=== PATIENT | female | born 1960 | race Caucasian/White ===

== ENCOUNTER → 2017-10-05 07:57 | Outpatient (CLI) | payer OTHER, BC, SELFPAY ==
[2017-10-05 10:21] LABS: Absolute Lymphocyte Count 1.71 X10^3/ul (0.83-4.51); Absolute Neutrophil Count 3.4 X10^3/uL (2.0-7.7); Basophil# 0.03 X10^3/uL; Basophil% 0.5 % (0-1); Eosinophil# 0.13 X10^3/uL; Eosinophils% 2.3 % (0-5); Hematocrit 42.1 % (37-47); Hemoglobin 13.4 g/dl (12.0-15.0); Lymphocyte # 1.71 X10^3/ul (4.0); Lymphocyte % 29.9 % (19-41); Mean Corp Hgb Conc 31.8 g/gl (32-36); Mean Corpuscular Hgb 29.7 pg (27.0-32.0); Mean Corpuscular Volume 93.3 fL (81-99); Mean Platelet Vol. 9.6 fl (6.2-12.0); Monocyte# 0.48 X10^3/uL; Monocyte% 8.4 % (0-10); Neutrophil # 3.37 X10^3/uL (2.7-7.7); Neutrophil % 58.9 % (47-70); Platelet Count 351 K/mm3 (150-450); RBC Distribution Width CV 13.4 % (11.6-14.6); RBC Distribution Width SD 45.9 fl (35.1-43.9); Red Blood Count 4.51 M/mm3 (4.2-5.4); White Blood Count 5.7 K/mm3 (4.4-11.0)
[2017-10-05 10:24] LABS: POSITIVE COUNT NO; POSITIVE DIFFERENTIAL NO; POSITIVE MORPHOLOGY NO
[2017-10-05 10:50] LABS: Anion Gap 7 (5-15); BUN 15 mg/dL (7-18); Calcium,Total 9.1 mg/dL (8.5-10.1); Chloride 105 mmol/L (98-107); Creatinine, Serum 0.84 mg/dL (0.55-1.02); EST Glomerular Filtration Rate 75 mL/min (>60); Est Glom Filt Rate - Afr Amer 91 mL/min (>60); Glucose 89 mg/dL (74-106); Potassium 4.3 mmol/L (3.5-5.1); Sodium Level 140 mmol/L (136-145); T4 Free Direct 1.25 ng/dL (0.76-1.46); Thyroid Stim Hormone (TSH) 0.86 uIU/mL (0.358-3.74)
== END ==
LOC: LAB.FUTURE 08:02
PROVIDERS: Family Provider Internal Medicine; PCP Internal Medicine; Visit Provider Nurse Practitioner Family
DX: E03.9 Hypothyroidism, unspecified (principal); M81.0 Age-related osteoporosis without current pathological fracture; J01.90 Acute sinusitis, unspecified
CPT/HCPCS: 36415; 80048; 84439; 84443; 85025

== ENCOUNTER → 2018-01-19 09:25 | Outpatient (CLI) | payer OTHER, BC, SELFPAY ==
--- NOTE | 2018-01-19 09:25 | BI_ITS ---
MAMMOGRAPHY - BILATERAL SCREENING 3-D NAS SYNTHESIS REASON FOR EXAM: Female, 57 years old. Bilateral Screening 3-D tomosynthesis PERTINENT HISTORY: No significant family history. TECHNIQUE: 2-D mammograms and 3-D Nas synthesis of the breast (s) were performed. CAD was performed. COMPARISON: 2016 FINDINGS: The breast composition is heterogeneously dense that can obscure small breast masses. Scattered benign calcifications are seen. No dense spiculated masses or suspicious microcalcifications are identified. No architectural distortion is identified. There is no skin thickening or retraction. There has been no significant change since the prior study. BI/SCREENING MAMM (CAD), BILAT IMPRESSION: No mammographic signs of malignancy. Routine yearly mammograms recommended. ASSESSMENT CATEGORY: BIRADS Category 2: Benign. A letter regarding these results will be sent to the patient by the facility within 30 days. FOLLOW UP RECOMMENDATION: Yearly follow up mammogram recommended. (A) Approximately 10% of breast cancers are not detected by mammography. A normal mammogram should not delay biopsy of a clinically suspicious abnormality. Electronically Signed: Alexy Rios MD at 11:30 EDT , Service support ,
--- NOTE | 2018-01-19 09:30 | BD_ITS ---
STUDY: DUAL ENERGY X-RAY ABSORPTIOMETRY / DXA REASON FOR EXAM: Female, 57 years old. Postmenopausal screening TECHNIQUE: Bone Mineral Density (BMD) measurements of lumbar spine and bilateral hips were obtained. COMPARISON: None. FINDINGS: Lumbar Spine (L1-L4): g/cm2 (0.879) / T-score (-2.5) / Z-score (-1.7) Findings are suggestive of osteoporosis with a high fracture risk. Left Femur Total: g/cm2 (0.773) / T-score (-1.9) / Z-score (-1.2) Left Femoral Neck: g/cm2 (0.776) / T-score (-1.9) / Z-score (-0.8) Right Femur Total: g/cm2 (0.792) / T-score (-1.7) / Z-score (-1.0) Right Femoral Neck: g/cm2 (0.810) / T-score (-1.6) / Z-score (-0.6) BD/Dexa Bone Density Study IMPRESSION: The patient is considered osteoporotic as outlined below according to World [employer] Organization (WHO) criteria with a high fracture risk. Reference Information: The T-score is the number of standard deviations above or below the standard which is normal for young adults at their peak bone mineral density. The World Health Organization (WHO) interprets the T-scores as follows: Above -1 Normal bone density Between -1 and -2.5 Osteopenia Equal to / or below -2.5 Osteoporosis As a practical clinical guideline, osteopenia may be graded as follows: Mild -1 through -1.5 Moderate -1.6 through -2.0 Severe -2.1 through -2.4 The Z-score is the number of standard deviations above or below age-matched controls. A Z-score of less than -1.5 would be considered abnormal. References: 1. NIH Osteoporosis and Related Bone Diseases http://www.osteo.org 2. International Society for Clinical Densitometry http://www.iscd.org 3. National Osteoporosis Foundation http://www.nof.org Electronically Signed: Alexy Rios MD at 7:57 EDT , Service support ,
== END ==
PROVIDERS: Family Provider Internal Medicine; PCP Internal Medicine; Visit Provider Internal Medicine
DX: M81.0 Age-related osteoporosis without current pathological fracture (principal); Z12.31 Encounter for screening mammogram for malignant neoplasm of breast
CPT/HCPCS: 77063; 77067; 77080

== ENCOUNTER → 2018-06-10 07:14 | Outpatient (CLI) | payer OTHER, BC, SELFPAY ==
[2018-06-10 08:36] LABS: Cholesterol 188 mg/dL (200); High Density Lipoprotein 69 mg/dL; Triglycerides 44 mg/dL; Very Low Density Lipoprotein 9 mg/dL (5-40)
[2018-06-10 09:06] LABS: Vitamin D,25 Hydroxy 49.7 ng/mL (29.95-100.01)
--- OUTSIDE RECORDS SUMMARY | 2018-09-13 08:23 | XMS RPT_ITS ---
:1960 Author Organization OHIP Support Name Relationship Address Phone COW Unavailable [address] + [place] [address] ROSI RIVAS Unavailable [address] + [place] [address] TAMIKO SEALS Unavailable [address] + [place] [address] COW Unavailable [address] + [place] [address] ROSI RIVAS Unavailable [address] + [place] [address] TAMIKO SEALS Unavailable [address] + [place] [address] + [place] [address] ROSI RIVAS Unavailable [address] + [place] [address] TAMIKO SEALS Unavailable [address] + [place] [address] + [place] [address] ROSI RIVAS Unavailable [address] + [place] [address] TAMIKO SEALS Unavailable [address] + [place] [address] + [place] [address] ROSI RIVAS Unavailable [address] + [place] [address] TAMIKO SEALS Unavailable [address] + [place] [address] + [place] [address] ROSSDELANEY, ROSI Unavailable [address] + [place] [address] TAMIKO SEALS Unavailable [address] + [place] [address] + [place] [address] ROSSDELANEY ROSI Unavailable [address] + [place] [address] TAMIKO SEALS Unavailable [address] + [place] [address] + [place] [address] ROSSDELANEY, ROSI Unavailable [address] + [place] [address] TAMIKO SEALS Unavailable [address] + [place] [address] + [place] [address] ROSSDELANEY, ROSI Unavailable [address] + [place] [address] TAMIKO SEALS Unavailable [address] + [place] [address] + [place] [address] ROSSDELANEY ROSI Unavailable [address] [phone] [place] [address] TAIMKO SEALS Unavailable [address] + [place] [address] Care Team Providers Name Role Phone Oleghe, Efewongbe Attending Unavailable Oleghe, Efewongbe Referring Unavailable Oleghe, Efewongbe Primary Care Unavailable Oleghe, Efewongbe Attending Unavailable Oleghe, Efewongbe Referring Unavailable Bo Barton RECONCILIATION COORDINATOR-C Attending Unavailable Oleghe, Efewongbe Primary Care Unavailable Bo Barton RECONCILIATION COORDINATOR-C Referring Unavailable Oleghe, Efewongbe Consulting Unavailable Oleghe, Efewongbe Attending Unavailable Oleghe, Efewongbe Referring Unavailable Oleghe, Efewongbe Primary Care Unavailable Oleghe, Efewongbe Attending Unavailable Oleghe, Efewongbe Referring Unavailable Oleghe, Efewongbe Attending Unavailable Oleghe, Efewongbe Referring Unavailable Oleghe, Efewongbe Primary Care Unavailable Oleghe, Efewongbe Attending Unavailable Oleghe, Efewongbe Primary Care Unavailable Sharon Bean Attending Unavailable Oleghe, Efewongbe Referring Unavailable Oleghe, Efewongbe Primary Care Unavailable Tiffany Mcgregor Attending Unavailable Dylan, Haily Attending Unavailable Oleghe, Efewongbe Referring Unavailable Oleghe, Efewongbe Primary Care Unavailable PROBLEMS PROBLEMS DATE TYPE CONDITION / CODE ATTENDING STATUS SOURCE 06/12/2018 Unknown E03.9 - Oleghe, Active [place] Hypothyroidism, [facility] unspecified / Hospital E03.9(ICD-10) Repository 06/10/2018 Unknown R01.1 - Cardiac Oleghe, Active [place] murmur, unspecified [facility] / R01.1(ICD-10) Hospital Repository 06/10/2018 Unknown M81.0 - Age-related Oleghe, Active [place] osteoporosis without [facility] current pathological Hospital fracture / Repository M81.0(ICD-10) 03/01/2018 Unknown Z01.411 - Encounter Haily Richardson Active [place] for gynecological [facility] examination [facility] (general) (routine) Repository with abnormal findings / Z01.411(ICD-10) 03/01/2018 Unknown N81.2 - Incomplete [place] uterovaginal Community prolapse / Hospital N81.2(ICD-10) Repository 03/01/2018 Unknown N95.2 - DylanHaily Active [place] Postmenopausal Community atrophic vaginitis / Hospital N95.2(ICD-10) Repository 12/12/2017 Unknown Z00.00 - Encounter Oleghe, Active [place] for general adult [facility] without abnormal Repository findings / Z00.00(ICD-10) 09/13/2017 Unknown J01.90 - Acute Oleghe, Active [place] sinusitis, [facility] unspecified / Hospital J01.90(ICD-10) Repository PROCEDURES PROCEDURES No Procedure Records FoundRESULTS RESULTS STILL CLEANER TUBE OFFICE VISIT Observed: 07/10/2018 Status: F Source: [place] REPORT 2:34 PM [facility] REPOSITORY [facility] [place] [address] [place] [address] OFFICE VISIT Date of Service: 03/01/18 MR#: [id number] Acct: [id number] Name: MARLEN SEALS Rep #: [id number] : 1960 Provider: JOSE Richardson Age/Sex: 57/F Location: [facility] Status: Signed with Addenda ADDENDUM by JOSE Richardson on 07/10/18 at 1434 Addendum entered and electronically signed by JULIEN Molina 07/10/18 14:34: NO mass. Confirmed rectocele Assessment AND Plan Problems 1. Encounter for gynecological examination with abnormal finding Z01.411 2. Cystocele and rectocele with incomplete uterovaginal prolapse N81.2 plan [facility] BS combined case with Dr Galsgow for pelvic support repair 3. Post-menopausal atrophic vaginitis N95.2 Plan - JULIEN Molina Completed breast and pelvic exam Reviewed diet and exercise Pap 20 Mammogram up to date Colonoscopy up to date Bone density recent and is scheduled with PCP for discussion of management Estrace cream as directed RTO 1 year, prn with problems Haily Richardson DIRECTOR STARS Medications New: estradiol 0.01%(0.1mg/gram) (Estrace) pea sized amount VAGINAL every other day X 4 weeks t hen twice a week; 42.5 grams 2RF 07/10/18 1434 <Electronically signed by Haily VICTORIA> Date Haily Richardson cc: * Signed Intake Vital Signs03/01/18 Height 5 ft 8 in 03/01/18 Weight: 150 lb 03/01/18 Body Mass Index (BMI) 22.8 03/01/18 Blood Pressure 129/85 Intake Visit Reasons: ANNUAL Lumber Cutter Required: No Is patient in pain?: No Allergies neurotin Allergy (Severe, Uncoded 09/13/17 08:22) Hives Medications levothyroxine 112 mcg tablet 112 mcg PO QDAY #90 tab 06/08/17 [Rx Confirmed 03/01/18] calcium carbonate 600 mg calcium (1,500 mg) tablet 1,200 mg PO QDAY tab 12/12/17 [History Confirmed 03/01/18] cholecalciferol (vitamin D3) 2,000 unit capsule 2,000 unit PO QDAY 12/12/17 [History Confirmed 03/01/18] citalopram 20 mg tablet 20 mg PO DAILY #90 tab 02/17/18 [Rx Confirmed 03/01/18] estradiol 0.01% (0.1 mg/gram) vaginal cream See Label Instructions VAGINAL .COMPLEX #42.5 g 03/01/18 [Rx Confirmed 03/01/18] Is last menstrual period known: No Patient : No : No [facility] Medical History Anxiety (Chronic) Heart murmur (Chronic) Hypothyroidism (Chronic) Osteoporosis (Chronic) Seasonal allergies (Chronic) Trigeminal neuralgia (Acute) Surgical History H/O thyroidectomy (Acute) History of tubal ligation (Acute) bunion removal (Acute) Family History Mother Colon cancer Father Hypertension CVA (cerebral vascular accident) Brother Hypertension Sister Thyroid disorder Social History Smoking Status: Never smoker alcohol intake: never substance use type: does not use caffeine: Yes what type of physical activity do you participate in: walking frequency: 1-2 times per week seatbelt use: always do you feel safe at home: Yes additional social history: -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 DatName GA/WeeksOutcome Route [facility] Kristy Moore [facility] LocaProviderFOB e ht en ia tn Unknown [facility]-1 [address] [place] [address] HPI ANNUAL: Details: MARLEN SEALS is a 57 year old who presents for annual exam. No concerns Last PAP: 2016 History of abnormal PAP: no Last mammogram: 12/2017 History of abnormal mammogram: no Colon cancer screenin Female Reproductive History Questions: Metorrhagia: No, Sexually active: Yes, Dyspareunia: No, PCB: No Menopausal Symptoms: No hot flashes, No night sweats, No weight change, No mood changes, No difficulty concentrating, No sleep problems, No change in libido Menopausal Treatment: No HRT, No Vaginal Estrogen, No Osphena, No OTC treatments, No prescription non-hormonal treatment ROS Const Constitutional: Denies night sweats Cardio Card: Denies chest pain Resp Resp: Denies cough or shortness of breath with activity GI GI: Denies abdominal pain, constipation, change in stools, vomiting or bloating : Denies hot flashes Psych Psych: Denies difficulty concentrating or change in sex drive Exam Const General: cooperative, healthy appearing, no acute distress, well developed Orientation: alert, oriented to person, oriented to place HENMT Head: normal to inspection Neck Neck: normal visual inspection Thyroid: thyroid normal Lymphatic: no lymphadenopathy noted Chest Breast inspection: normal inspection of the breasts, normal inspection of the axillae Breast palpation: normal palpation of the breasts, normal palpation of the axillae, no axillary lymphadenopathy Resp Effort AND Inspection: normal respiratory effort Auscultation: clear to auscultation bilaterally Cardio Rate: regular rate Rhythm: regular rhythm GI Palpation: soft, nontender, no masses Rectal Exam: mass, deferred External Female Exam: normal external appearance Urethra: other (dilated, small caruncle) Speculum Exam - Vagina: normal vaginal discharge, atrophic vaginal mucosa Speculum Exam - Cervix: normal appearance of the cervix Bimanual Exam- Vagina AND Uterus: uterine size normal, uterine shape normal, uterus non-tender, other (vaginal wall prolapse with cervix 3cm above introitus) Bimanual Exam- Adnexa, other: normal adnexae, no adnexal masses, adnexae non-tender, cystocele, rectocele Pelvic Support: cystocele moderate, rectocele mild Neuro General: alert, oriented x3 Psych Affect: normal affect Assessment AND Plan Problems 1. Encounter for gynecological examination with abnormal finding Z01.411 2. Cystocele and rectocele with incomplete uterovaginal prolapse N81.2 plan [facility] BS combined case with Dr Glasgow for pelvic support repair 3. Post-menopausal atrophic vaginitis N95.2 Plan Completed breast and pelvic exam Reviewed diet and exercise Pap 20 Mammogram up to date Colonoscopy up to date Bone density recent and is scheduled with PCP for discussion of management Estrace cream as directed RTO 1 year, prn with problems Haily Richardson DIRECTOR STARS Medications New: estradiol 0.01%(0.1mg/gram) (Estrace) pea sized amount VAGINAL every other day X 4 weeks t hen twice a week; Coding Level of Care Code Off vis,new,prev 40-64yrs Diagnoses Encounter for gynecological examination with abnormal finding Z01.411 Gynecological examination findings: abnormal findings PRESENT Cystocele and rectocele with incomplete uterovaginal prolapse N81.2 Post-menopausal atrophic vaginitis N95.2 03/01/18 0957 <Electronically signed by Haily VICTORIA> Date Haily VICTORIA Cosigner Signature: Date (if applicable) CC: INTERNAL MEDICINE Observed: 06/14/2018 Status: F Source: [place] OFFICE VISIT 4:59 PM [facility] Internal Medicine [address] [place] [address] [place] [address] OFFICE VISIT Date of Service: 06/12/18 MR#: [id number] Acct: [id number] Name: MARLEN SEALS EVARISTO Rep #: [id number] : 1960 Provider: Ko Eden MD Age/Sex: 58/F [place] [facility] Status: Signed Intake Vital Signs06/12/18 Height 5 ft 8 in Intake Visit Reasons: 6 mo fu Chief Complaint: follow-up visit Is patient in pain?: No Allergies neurotin Allergy (Severe, Uncoded 09/13/17 08:22) Hives Medications levothyroxine 112 mcg tablet 112 mcg PO QDAY #90 tab 06/08/17 [Rx Confirmed 03/01/18] calcium carbonate 600 mg calcium (1,500 mg) tablet 1,200 mg PO QDAY tab 12/12/17 [History Confirmed 03/01/18] cholecalciferol (vitamin D3) 2,000 unit capsule 2,000 unit PO QDAY 12/12/17 [History Confirmed 03/01/18] citalopram 20 mg tablet 20 mg PO DAILY #90 tab 02/17/18 [Rx Confirmed 03/01/18] estradiol 0.01% (0.1 mg/gram) vaginal cream See Rx Instructions VAGINAL .COMPLEX #42.5 g 03/01/18 [Rx Confirmed 03/01/18] denosumab 60 mg/mL subcutaneous syringe 60 mg SC T0VAIGAV #1 ml 06/12/18 [Rx Confirmed 06/12/18] Post menopausal: Yes PFSH Medical History Anxiety (Chronic) Heart murmur (Chronic) Hypothyroidism (Chronic) Osteoporosis (Chronic) Seasonal allergies (Chronic) Trigeminal neuralgia (Acute) Surgical History H/O thyroidectomy (Acute) History of tubal ligation (Acute) bunion removal (Acute) Family History Mother Colon cancer Father Hypertension CVA (cerebral vascular accident) Brother Hypertension Sister Thyroid disorder Social History Smoking Status: Never smoker alcohol intake: never substance use type: does not use caffeine: Yes what type of physical activity do you participate in: walking frequency: 1-2 times per week seatbelt use: always do you feel safe at home: Yes additional social history: -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 She has no acute complaints at this time. During her last visit, she was started on Fosamax due to her history of osteoporosis however, she discontinued this due to generalized bone pain. She is currently on calcium and vitamin D which she reports compliance with. Last thyroid function was also within normal. She denies any concerns with palpitations, fatigue, significant weight changes or any change in her bowel habit. ROS Const Constitutional: No weight change, body ache, chills, fatigue, sleep problems, fever(s), change in appetite, snoring, weakness, frequent falls, headache(s) or excessive sweating Eyes Eyes: No change in vision, eye pain, light sensitivity or blurry vision ENT ENT: No headache(s), abnormal hearing, ear pain, tinnitus, nasal congestion, sore throat or neck pain Resp Respiratory: No snoring, cough, shortness of breath or wheezing Cardio Cardiology: No excessive sweating, chest pain at rest, chest pain with exertion, shortness of breath, dyspnea on exertion, palpitations, orthopnea or lightheadedness Gastro GI: No abdominal pain, change in bowel habits, constipation, diarrhea, vomiting, nausea/dyspepsia or cramping Genitourinary-Female: No burning urination, painful urination, urinary incontinence, urinary frequency, abnormal vaginal bleeding, pelvic pain or other Musc Musculoskeletal: No neck pain, abnormal walking, joint pain, back pain, limited range of motion, numbness or tingling Skin Skin: No redness, dry skin, itching, lesions, wounds or rash Neuro Neurology: No weakness, frequent falls, headache(s), abnormal hearing, abnormal walking, numbness, tingling, abnormal speech, dizziness or memory loss Psych Psychiatric: No change in appetite, No memory loss, No anxiety, No depression, No Thoughts of harming yourself/Others Endo Endocrine: No fatigue, excessive sweating, cold intolerance, increased thirst/drinking, heat intolerance, flushing or increased hunger Aller/Imm Allergy/Immunologic: No wheezing, itchy eyes, hives or seasonal allergy symptoms Meek/Lymp Hematologic/Lymphatic: No easy bleeding, easy bruising or enlarged lymph nodes Exam Const General: cooperative, no acute distress Orientation: alert, awake, oriented x3 HENWY Head: normal to inspection, normocephalic Ears: hearing grossly normal bilaterally Resp Effort AND Inspection: normal respiratory effort, able to speak in complete sentences Auscultation: Bilateral: Clear to Auscultation Cardio Rate: regular rate Rhythm: regular rhythm Heart Sounds: S1 normal, S2 normal GI Palpation: soft, no hepatosplenomegaly Neuro General: alert, awake, oriented x3, moves all extremities, CN's II-XI intact bilaterally Extrem General: no clubbing, cyanosis or edema Psych Appearance: grossly normal Mood: congruent mood Affect: normal affect Assessment AND Plan 1. Osteoporosis M81.0 Plan Poorly tolerant of Fosamax. Will try Prolia. Prescription sent. Continue calcium and vitamin D daily. Vitamin D level recently checked and within normal. Exercise also recommended. Repeat bone density in 2 years. 2. Hypothyroidism E03.9 Plan Stable. No concerns for over or under correction. Continue current medication. Orders Orders: 3. Depression with anxiety F41.8 Plan Also stable. Currently on Celexa 20 mg daily. Continue current management. 4. Health care maintenance Z00.00 Plan Last colonoscopy 3 years ago. Has had her colonoscopies every 5 years due to family history of colon cancer in her mother at age 50. Has received her flu shot. Mammogram in December was within normal. Currently following up with her cigarette paper tester and is scheduled to have a hysterectomy/pelvic wall repair due to bladder prolapse. This note was generated with [employer] dictation software. It may contain incorrect words, spelling, and punctuation that were not noted in checking the note before signing. Plan Detail Other Medications New: Coding Level of Care Code Off vis,est,level 4 Diagnoses Osteoporosis M81.0 Osteoporosis type: unspecified Hypothyroidism E03.9 Depression with anxiety F41.8 Health care maintenance Z00.00 06/14/18 2589 <Electronically signed by Ko Eden MD> Date Ko Eden MD Cosigner Signature: Date (if applicable) CC: LIPID PROFILE Collected: 06/10/2018 Status: F Source: [place] 7:19 AM [facility] REPOSITORY Order Comment: Comments: Fasting Comments: Fasting TYPE CODE TESTS RESULT OUT OF RANGE REFERENCE UNITS LAB L501.4900 200 mg/dL Normal CHOL 188 Result Comment: <200 mg/dL Desirable 200-240 mg/dL Borderline >240 mg/dL High Risk LAB L501.5000 mg/dL Normal TRIG 44 Result Comment: The drugs N-Acetylcysteine and Metamizole may falsely depress this assay. Serum Triglycerides Reference Interval Normal <150 mg/dL Borderline high 150 - 199 mg/dL High 200 - 499 mg/dL Very High > or = 500 mg/dL LAB L501.6400 mg/dL Normal HDL 69 Result Comment: The drugs N-Acetylcysteine and Metamizole may falsely depress this assay. Reference Range HDL <40 mg/dL Low HDL Cholesterol HDL >or= 60 mg/dL High HDL Cholesterol LAB L501.6500 0-130 mg/dL Normal LDL 110 LAB L501.6600 5-40 mg/dL Normal VLDL 9 Performed By: #### L500.4100 #### [facility] [address] [place], [address] VITAMIN D,25 HYDROXY Collected: 06/10/2018 Status: F Source: [place] 7:19 AM [facility] REPOSITORY TYPE CODE TESTS RESULT OUT OF RANGE REFERENCE UNITS LAB L506.1000 29.95-100.01 ng/mL Normal Vitamin D 49.7 25-OH Result Comment: Vitamin D 25(OH) Status Range Deficiency <20 ng/mL (50nmol/L) Insuffciency 20 - 30 ng/mL (50 - 75 nmol/L) Sufficiency 30 - 100 ng/mL (75 - 250 nmol/L) Toxicity >100 ng/mL (>250 nmol/L) Performed By: #### L506.1000 #### [facility] [address] [place], [address] STILL CLEANER TUBE OFFICE VISIT Observed: 02/12/2018 Status: F Source: [place] REPORT 3:07 AM [facility] REPOSITORY [facility] [place] [address] [place] [place] [address] OFFICE VISIT Date of Service: 02/06/18 MR#: [id number] Acct: [id number] Name: MARLEN SEALS EVARISTO Rep #: [id number] : 1960 Provider: Sharon Bean MD Age/Sex: 57/F Location: [facility] Status: Signed Intake Vital Signs02/06/18 Height 5 ft 8 in 02/06/18 Weight: 150 lb 6 oz 02/06/18 Body Mass Index (BMI) 22.8 02/06/18 Blood Pressure 124/83 Intake Visit Reasons: ? Bartholin cyst Allergies neurotin Allergy (Severe, Uncoded 09/13/17 08:22) Hives Medications levothyroxine 112 mcg tablet 112 mcg PO QDAY #90 tab 06/08/17 [Rx Confirmed 02/06/18] calcium carbonate 600 mg calcium (1,500 mg) tablet 1,200 mg PO QDAY tab 12/12/17 [History Confirmed 02/06/18] cholecalciferol (vitamin D3) 2,000 unit capsule 2,000 unit PO QDAY 12/12/17 [History Confirmed 02/06/18] escitalopram 10 mg tablet 10 mg PO QDAY 02/06/18 [History Confirmed 02/06/18] Is last menstrual period known: No Post menopausal: No Patient : No : No PFSH PFSH Medical History Anxiety (Chronic) Heart murmur (Chronic) Hypothyroidism (Chronic) Osteoporosis (Chronic) Seasonal allergies (Chronic) Trigeminal neuralgia (Acute) Surgical History H/O thyroidectomy (Acute) History of tubal ligation (Acute) bunion removal (Acute) Family History Mother Colon cancer Father Hypertension CVA (cerebral vascular accident) Brother Hypertension Sister Thyroid disorder Social History Smoking Status: Never smoker alcohol intake: never substance use type: does not use caffeine: Yes what type of physical activity do you participate in: walking frequency: 1-2 times per week seatbelt use: always do you feel safe at home: Yes additional social history: -Rupert- Works in [employer] at [employer] 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 DatName GA/WeeksOutcome Route Bt [facility] LocaProviderFOB e ht en ia tn Unknown [facility]- 995 Unknown [place]- 1997 HPI ? Bartholin cyst: Details: MARLEN SEALS is a 57 year old who presents for a vaginal lump. she states that all of a sudden this week she noticed and vaginal lump that protudes and she can feel herself sitting on it. she denies any discharge or bleeding with it. she denies any new urinary complaints. ROS Const Constitutional: Reports system reviewed and no additional complaints, except as docu : Reports as per HPI Exam Const General: cooperative, well developed, healthy appearing General: bladder normal to palpation External Female Exam: normal external appearance, gaping introitus, normal appearance of the urethra Urethra: normal appearance of the urethra Speculum Exam - Vagina: normal appearance of the vagina, normal vaginal discharge Speculum Exam - Cervix: normal appearance of the cervix Bimanual Exam- Vagina AND Uterus: normal bimanual exam, normal vaginal palpation, uterine size normal, bladder normal to palpation, uterine shape normal Bimanual Exam- Adnexa, other: normal adnexae, no adnexal masses, adnexae mobile, cystocele, vaginal apex descent, rectocele Pelvic Support: cystocele, vaginal apex descent, rectocele Assessment AND Plan Problems 1. Cystocele and rectocele with incomplete uterovaginal prolapse N81.2 plan [facility] BS combined case with Dr Glasgow for pelvic support repair Plan referral to urogyn for pelvic support surgery evaluation. see problem list note for details. Coding Level of Care Code Off vis,new,level 3 Diagnoses Cystocele and rectocele with incomplete uterovaginal prolapse N81.2 02/12/18 0307 <Electronically signed by Sharon Bean MD> Date Sharon Bean MD Cosigner Signature: Date (if applicable) CC: DEXA BONE DENSITY Observed: 01/19/2018 Status: F Source: [place] STUDY 9:27 AM [facility] REPOSITORY [facility] Imaging Services [address] [place] [address] [place] [address] Dexa Bone Density Study MR#: [id number] Acct: [id number] Name: MARLEN SEALS Rep #: [id number] : 1960 F 57 From: Maksim Rios MD PCP: Ko Eden MD Status: REG CLI Study: Dexa Bone Density Study Date of Exam: 01/19/18 Exam# [id number] Ordering Dr: Ko Eden MD STUDY: DUAL ENERGY X-RAY ABSORPTIOMETRY / DXA REASON FOR EXAM: Female, 57 years old. Postmenopausal screening TECHNIQUE: Bone Mineral Density (BMD) measurements of lumbar spine and bilateral hips were obtained. COMPARISON: None. FINDINGS: Lumbar Spine (L1-L4): g/cm2 (0.879) / T-score (-2.5) / Z-score (-1.7) Findings are suggestive of osteoporosis with a high fracture risk. Left Femur Total: g/cm2 (0.773) / T-score (-1.9) / Z- score (-1.2) Left Femoral Neck: g/cm2 (0.776) / T-score (-1.9) / Z- score (-0.8) Right Femur Total: g/cm2 (0.792) / T-score (-1.7) / Z- score (-1.0) Right Femoral Neck: g/cm2 (0.810) / T-score (-1.6) / Z-score (-0.6) BD/Dexa Bone Density Study IMPRESSION: The patient is considered osteoporotic as outlined below according to World [employer] Organization (WHO) criteria with a high fracture risk. Reference Information: The T-score is the number of standard deviations above or below the standard which is normal for young adults at their peak bone mineral density. The World Health Organization (WHO) interprets the T-scores as follows: Above -1 Normal bone density Between -1 and -2.5 Osteopenia Equal to / or below -2.5 Osteoporosis As a practical clinical guideline, osteopenia may be graded as follows: Mild -1 through -1.5 Moderate -1.6 through -2.0 Severe -2.1 through -2.4 The Z-score is the number of standard deviations above or below age-matched controls. A Z-score of less than -1.5 would be considered abnormal. References: 1. NIH Osteoporosis and Related Bone Diseases http://www.osteo.org 2. International Society for Clinical Densitometry http://www.iscd.org 3. National Osteoporosis Foundation http://www.nof.org Electronically Signed: Alexy Rios MD at 7:57 EDT , Service support , CC: Ko Eden MD Regional Manager: Signed SCREENING MAMM (CAD), Observed: 01/19/2018 Status: F Source: [place] BIL 9:25 AM [facility] REPOSITORY [facility] Imaging Services [address] [place] [address] SCREENING MAMM (CAD), BILAT MR#: [id number] Acct: [id number] Name: MARLEN SEALS EVARISTO Rep #: [id number] : 1960 F 57 From: Maksim Rios MD PCP: Ko Eden MD Status: REG CLI Study: SCREENING MAMM (CAD), BILAT Date of Exam: 01/19/18 Exam# [id number] Ordering Dr: Ko Eden MD MAMMOGRAPHY - BILATERAL SCREENING 3-D KIT SYNTHESIS REASON FOR EXAM: Female, 57 years old. Bilateral Screening 3-D tomosynthesis PERTINENT HISTORY: No significant family history. TECHNIQUE: 2-D mammograms and 3-D Kit synthesis of the breast (s) were performed. CAD was performed. COMPARISON: 2016 FINDINGS: The breast composition is heterogeneously dense that can obscure small breast masses. Scattered benign calcifications are seen. No dense spiculated masses or suspicious microcalcifications are identified. No architectural distortion is identified. There is no skin thickening or retraction. There has been no significant change since the prior study. BI/SCREENING MAMM (CAD), BILAT IMPRESSION: No mammographic signs of malignancy. Routine yearly mammograms recommended. ASSESSMENT CATEGORY: BIRADS Category 2: Benign. A letter regarding these results will be sent to the patient by the facility within 30 days. FOLLOW UP RECOMMENDATION: Yearly follow up mammogram recommended. (A) Approximately 10% of breast cancers are not detected by mammography. A normal mammogram should not delay biopsy of a clinically suspicious abnormality. Electronically Signed: Alexy Rios MD at 11:30 EDT , Service support , CC: Ko Eden MD Regional Manager: Signed INTERNAL MEDICINE Observed: 12/13/2017 Status: F Source: [place] OFFICE VISIT 9:24 AM [facility] Internal Medicine [address] [place] [address] [address] [place] [address] OFFICE VISIT Date of Service: 12/12/17 MR#: [id number] Acct: [id number] Name: MARCOMARLEN EVARISTO Rep #: [id number] : 1960 Provider: Ko Eden MD Age/Sex: 57/F Location: [facility] Status: Signed Intake Vital Signs12/12/17 Height 5 ft 8 in Intake Visit Reasons: 3 mo f/u and PAP Chief Complaint: follow-up visit Is patient in pain?: No Allergies neurotin Allergy (Severe, Uncoded 09/13/17 08:22) Hives Medications loratadine 10 mg tablet 10 mg PO QDAY PRN 06/06/17 [History Confirmed 06/06/17] levothyroxine 112 mcg tablet 112 mcg PO QDAY #90 tab 06/08/17 [Rx Confirmed 09/13/17] calcium carbonate 600 mg calcium (1,500 mg) tablet 1,200 mg PO QDAY tab 12/12/17 [History Confirmed 12/12/17] cholecalciferol (vitamin D3) 2,000 unit capsule 2,000 unit PO QDAY 12/12/17 [History Confirmed 12/12/17] citalopram 20 mg tablet 20 mg PO QDAY 12/12/17 [History Confirmed 12/12/17] Post menopausal: Yes PFSH Medical History Anxiety (Chronic) Heart murmur (Chronic) Hypothyroidism (Chronic) Osteoporosis (Chronic) Seasonal allergies (Chronic) Trigeminal neuralgia (Acute) Surgical History H/O thyroidectomy (Acute) History of tubal ligation (Acute) bunion removal (Acute) Family History Mother Colon cancer Father Hypertension CVA (cerebral vascular accident) Brother Hypertension Sister Thyroid disorder Social History Smoking Status: Never smoker alcohol intake: never substance use type: does not use what type of physical activity do you participate in: none HPI HPI Chief Complaint: follow-up visit Details: MARLEN SEALS, is a 57yo F who presents to the office today for follow up of chronic medical conditions. Has no new complaints at this time. She reports a history of Osteoporosis and at some point was on Fosamax but, it was discontinued after 3 weeks due to intolerable side effects. She is currently on Calcium and Vit D which she reports compliance with. ROS Const Constitutional: No weight change, body ache, chills, fatigue, sleep problems, fever(s), change in appetite, snoring, weakness, frequent falls, headache(s) or excessive sweating Eyes Eyes: No change in vision, eye pain, light sensitivity or blurry vision ENT ENT: No headache(s), abnormal hearing, ear pain, tinnitus, nasal congestion, sore throat or neck pain Resp Respiratory: No snoring, cough, shortness of breath or wheezing Cardio Cardiology: No excessive sweating, chest pain at rest, chest pain with exertion, shortness of breath, dyspnea on exertion, palpitations, orthopnea or lightheadedness Gastro GI: No abdominal pain, change in bowel habits, constipation, diarrhea, vomiting, nausea/dyspepsia or cramping Genitourinary-Female: No burning urination, painful urination, urinary incontinence, urinary frequency, abnormal vaginal bleeding, pelvic pain or other Musc Musculoskeletal: No neck pain, abnormal walking, joint pain, back pain, limited range of motion, numbness or tingling Skin Skin: No redness, dry skin, itching, lesions, wounds or rash Neuro Neurology: No weakness, frequent falls, headache(s), abnormal hearing, abnormal walking, numbness, tingling, abnormal speech, dizziness or memory loss Psych Psychiatric: No change in appetite, No memory loss, No anxiety, No depression, No Thoughts of harming yourself/Others Endo Endocrine: No fatigue, excessive sweating, cold intolerance, increased thirst/drinking, heat intolerance, flushing or increased hunger Aller/Imm Allergy/Immunologic: No wheezing, itchy eyes, hives or seasonal allergy symptoms Meek/Lymp Hematologic/Lymphatic: No easy bleeding, easy bruising or enlarged lymph nodes Exam Const General: cooperative, no acute distress Orientation: alert, awake, oriented x3 HENMT Head: normal to inspection, normocephalic Ears: hearing grossly normal bilaterally Resp Effort AND Inspection: normal respiratory effort, able to speak in complete sentences Auscultation: Bilateral: Clear to Auscultation Cardio Rate: regular rate Rhythm: regular rhythm Heart Sounds: S1 normal, S2 normal GI Palpation: soft, no hepatosplenomegaly Neuro General: alert, awake, oriented x3, moves all extremities, CN's II-XI intact bilaterally Extrem General: no clubbing, cyanosis or edema Psych Appearance: grossly normal Mood: congruent mood Affect: normal affect Assessment AND Plan 1. Osteoporosis M81.0 Plan Last Dexa scan was over 3 years ago and was suggestive of Osteoporosis per patient. Currently on Calcium and Vitamin D. Repeat bone density ordered. Continue calcium and vitamin D supplements. Exercise also recommended. Orders Orders: 2. Depression with anxiety F41.8 Plan Stable. Continue citalopram 20 mg daily. 3. Hypothyroidism E03.9 Plan Stable. Last thyroid function test was within normal. Continue current medication. Lipid profile ordered. Orders Orders: 4. Health care maintenance Z00.[address] Bean for pelvic examination and Pap smear. Per patient last Pap smear was several years ago. Bone density as above. Mammogram also ordered. This note was generated with [employer] dictation software. It may contain incorrect words, spelling, and punctuation that were not noted in checking the note before signing. Orders Referrals: Plan Detail Other Orders Orders: Other Medications Discontinued: amoxicillin-pot clavulanate 875-125 mg Discontinued Reason: 1 tab PO Q12H Tiffany Mcgregor Pt no longer taking Follow Up 6 Months Coding Level of Care Code Off vis,est,level 4 Diagnoses Osteoporosis M81.0 Depression with anxiety F41.8 Hypothyroidism E03.9 Health care maintenance Z00.00 12/13/17 0924 <Electronically signed by Ko Eden MD> Date Ko Eden MD Cosigner Signature: Date (if applicable) CC: CBC W/DIFF, AUTOMATED Collected: 10/05/2017 Status: F Source: [place] 8:09 AM [facility] REPOSITORY TYPE CODE TESTS RESULT OUT OF RANGE REFERENCE UNITS LAB L100.1000 4.4-11.0 K/mm3 Normal WBC 5.7 LAB L100.1200 4.2-5.4 M/mm3 Normal RBC 4.51 LAB L100.1300 12.0-15.0 g/dl Normal HGB 13.4 LAB L100.1400 37-47 % Normal HCT 42.1 LAB L100.1500 81-99 fL Normal MCV 93.3 LAB L100.1600 27.0-32.0 pg Normal MCH 29.7 LAB L100.1700 32-36 g/gl Low MCHC 31.8 LAB L100.1810 11.6-14.6 % Normal RDW CV 13.4 LAB L100.1820 35.1-43.9 fl High RDW SD 45.9 LAB L100.1900 150-450 K/mm3 Normal PLT 351 LAB L100.2000 6.2-12.0 fl Normal MPV 9.6 LAB L100.2100 47-70 % Normal NEUT% 58.9 LAB L100.2200 19-41 % Normal LY% 29.9 LAB L100.2300 0-10 % Normal MONO% 8.4 LAB L100.2400 0-5 % Normal EO% 2.3 LAB L100.2500 0-1 % Normal BASO% 0.5 LAB L100.2550 0.0-0.9 % Normal IM GRAN % 0.000 Result Comment: IG% - Immature Granulocytes (promyelocytes, myelocytes and metamyelocytes) > 1% indicates that a LEFT SHIFT is Present. LAB L100.2620 2.0-7.7 X10 3/uL Normal Absolute Neut 3.4 LAB L100.2720 0.83-4.51 X10 3/ul Normal Absolute Lymph 1.71 Performed By: #### L100.0100 #### [facility] [address] [place], [place], [id number] BASIC METABOLIC Collected: 10/05/2017 Status: F Source: [place] PROFILE (BMP) 8:09 AM [facility] REPOSITORY TYPE CODE TESTS RESULT OUT OF RANGE REFERENCE UNITS LAB L501.0100 74-106 mg/dL Normal GLU 89 Result Comment: Please note revised GLUCOSE reference range effective 2017. LAB L501.1000 7-18 mg/dL Normal BUN 15 LAB L501.1100 0.55-1.02 mg/dL Normal CREAT,SERUM 0.84 Result Comment: The validity of the calculated GFR AND GFRAA in patients over 70 years has not been determined. Clinical correlation is essential. LAB L501.1110 >60 mL/min Normal EST GFR 75 Result Comment: Non- GFR Calc LAB L501.1115 >60 mL/min Normal EST GFR - AA 91 Result Comment: GFR Calc LAB L501.1300 10-20 RATIO Normal BUN/CRE 18.0 LAB L501.2200 8.5-10.1 mg/dL CA Normal 9.1 LAB L501.5300 136-145 mmol/L NA Normal 140 LAB L501.5600 3.5-5.1 mmol/L K Normal 4.3 LAB L501.5900 98-107 mmol/L CL Normal 105 LAB L501.6100 21.0-32.0 mmol/L Normal CO2 28.0 LAB L501.6200 5-15 Normal GAP 7 Performed By: #### L500.2500, L501.9520, L506.0400 #### [facility] [address] [place], [address] THYROID STIM HORMONE Collected: 10/05/2017 Status: F Source: [place] (TSH) 8:09 AM [facility] REPOSITORY TYPE CODE TESTS RESULT OUT OF RANGE REFERENCE UNITS LAB L501.9520 0.358-3.74 uIU/mL Normal TSH 0.86 Performed By: #### L500.2500, L501.9520, L506.0400 #### [facility] [address] [place], [address] T4 FREE DIRECT Collected: 10/05/2017 Status: F Source: [place] 8:09 AM [facility] REPOSITORY TYPE CODE TESTS RESULT OUT OF RANGE REFERENCE UNITS LAB L506.0400 0.76-1.46 ng/dL Normal T4 FREE 1.25 DIRECT Performed By: #### L500.2500, L501.9520, L506.0400 #### [facility] [address] [place], [address] INTERNAL MEDICINE Observed: 09/14/2017 Status: F Source: [place] OFFICE VISIT 1:47 PM [facility] REPOSITORY [facility] [address] [place] [address] OFFICE VISIT Date of Service: 09/13/17 MR#: [id number] Acct: [id number] Name: MARLEN SEALS EVARISTO Rep #: [id number] : 1960 Provider: Ko Eden MD Age/Sex: 57/F Location: [facility] Status: Signed Intake Vital Signs09/13/17 Height 5 ft 8 in Intake Visit Reasons: 4 mo fu Chief Complaint: follow-up visit Is patient in pain?: No Allergies neurotin Allergy (Severe, Uncoded 09/13/17 08:22) Hives Medications citalopram 10 mg tablet 10 mg PO QDAY 06/06/17 [History Confirmed 09/13/17] loratadine 10 mg tablet 10 mg PO QDAY PRN 06/06/17 [History Confirmed 06/06/17] levothyroxine 112 mcg tablet 112 mcg PO QDAY #90 tab 06/08/17 [Rx Confirmed 09/13/17] amoxicillin 875 mg-potassium clavulanate 125 mg tablet 1 tab PO Q12H #20 tab 09/13/17 [Rx Confirmed 09/13/17] PFSH Medical History Anxiety (Chronic) Heart murmur (Chronic) Hypothyroidism (Chronic) Osteoporosis (Chronic) Seasonal allergies (Chronic) Trigeminal neuralgia (Acute) Surgical History H/O thyroidectomy (Acute) History of tubal ligation (Acute) bunion removal (Acute) Family History Mother Colon cancer Father Hypertension CVA (cerebral vascular accident) Brother Hypertension Sister Thyroid disorder Social History Smoking Status: Never smoker alcohol intake: never substance use type: does not use what type of physical activity do you participate in: none HPI HPI Chief Complaint: follow-up visit Details: MARLEN SEALS, is a 57yo F who presents to the office today for follow up. She also has some acute complaints. She reports nasal congestion, facial pressure, headache, chills and feeling of unwell that has been ongoing for about 10 days. Symptoms are said to have persisted and it showed no sign of improvement. She denies any prior history of chronic sinusitis. She is also concerned about a mole on the side of her face which appears to have changed in size. This was noted by her hairdresser. She denies tenderness. She has not been seen by remedy developer recently. She denies any prior history of skin cancer. She currently is on 10 mg of citalopram daily. She reports compliance and states that her depression is well controlled. She is also on levothyroxine last thyroid function check was in March. She denies any signs or symptoms suggestive of overcorrection. ROS Const Constitutional: No weight change, body ache, chills, fatigue, sleep problems, fever(s), change in appetite, snoring, weakness, frequent falls, headache(s) or excessive sweating Eyes Eyes: No change in vision, eye pain, light sensitivity or blurry vision ENT ENT: Positive for nasal congestion and sore throat; no headache(s), abnormal hearing, ear pain, tinnitus or neck pain Resp Respiratory: Positive for cough Cough: Yes non-productive; no snoring, shortness of breath or wheezing Cardio Cardiology: No excessive sweating, chest pain at rest, chest pain with exertion, shortness of breath, dyspnea on exertion, palpitations, orthopnea or lightheadedness Gastro GI: No abdominal pain, change in bowel habits, constipation, diarrhea, vomiting, nausea/dyspepsia or cramping Musc Musculoskeletal: No neck pain, abnormal walking, joint pain, back pain, limited range of motion, numbness or tingling Skin Skin: Positive for other (mole on the side of face.); no redness, dry skin, itching, lesions, wounds or rash Breast Breast: Positive for other (mole on the side of face.) Neuro Neurology: No weakness, frequent falls, headache(s), abnormal hearing, abnormal walking, numbness, tingling, abnormal speech, dizziness or memory loss Psych Psychiatric: No change in appetite, No memory loss, No anxiety, No depression, No Thoughts of harming yourself/Others Endo Endocrine: No fatigue, excessive sweating, cold intolerance, increased thirst/drinking, heat intolerance, flushing or increased hunger Aller/Imm Allergy/Immunologic: No wheezing, itchy eyes, hives or seasonal allergy symptoms Meek/Lymp Hematologic/Lymphatic: No easy bleeding, easy bruising or enlarged lymph nodes Exam Const General: cooperative, no acute distress Orientation: alert, awake, oriented x3 HENMT Head: normal to inspection, normocephalic Ears: hearing grossly normal bilaterally Resp Effort AND Inspection: normal respiratory effort, able to speak in complete sentences Auscultation: Bilateral: Clear to Auscultation Cardio Rate: regular rate Rhythm: regular rhythm Heart Sounds: S1 normal, S2 normal GI Palpation: soft, no hepatosplenomegaly Skin Other: Lesion noted on the left bahai area. irregular color and borders. Non tender. Neuro General: alert, awake, oriented x3, moves all extremities, CN's II-XI intact bilaterally Extrem General: no clubbing, cyanosis or edema Psych Appearance: grossly normal Mood: congruent mood Affect: normal affect Assessment AND Plan 1. Acute sinusitis J01.90 Plan Symptoms ongoing for about 10 days. Episode of chills and fever. Will start on Augmentin BID x 10days. Flonase and Tylenol Advised to call the office if no improvement is noted. Orders Orders: 2. Facial skin lesion L98.9 Plan ? Changing mole. Referred to Dermatology. 3. Hypothyroidism E03.9 Plan No concerning symptoms at this time. TSH and Free T4 ordered. Continue current medication. Orders Orders: 4. Depression with anxiety F41.8 Plan Stable. Currently on 10mg of Citalopram daily. Continue current medication. This note was generated with [employer] software. It may contain incorrect words, spelling, and punctuation that were not noted in checking the note before signing. Plan Detail Other Orders Orders: Other Medications New: Follow Up 3 Months (Routine Follow up) Coding Level of Care Code Off vis,est,level 4 Diagnoses Acute sinusitis J01.90 Facial skin lesion L98.9 Hypothyroidism E03.9 Depression with anxiety F41.8 09/14/17 1347 <Electronically signed by Ko Eden MD> Date Ko Eden MD Cosigner Signature: Date (if applicable) CC: ALLERGIES ALLERGIES DATE TYPE / CODE NAME / CODE REACTION SEVERITY SOURCE 09/13/2017 Miscellaneous neurotin Hives [place] Allergy/[id number]([facility]) Hospital Repository ENCOUNTERS ENCOUNTERS ADMIT/DISCHARGE ACCOUNT ADMITTING ENCOUNTER LOCATION SOURCE NUMBER CLASS 06/12/2018/ [id number] Ambulatory BMSBuilding:B [place] [address] 6 [facility] Repository 06/10/2018 [id number] Ambulatory [place] 7 [facility] ing:LAB Repository 03/01/2018/ [id number] Ambulatory BMSBuilding:B [place] 8 7 [facility] Repository 02/17/2018 [id number] Ambulatory BMSBuilding:B [place] 6 [facility] Repository 02/06/2018/ [id number] Ambulatory BMSBuilding:B [place] 8 1 [facility] Repository 01/19/2018 [id number] Ambulatory [place] 4 [facility] ing:OPBD Repository 12/12/2017/ [id number] Ambulatory BMSBuilding:B [place] 8 5 [facility] Repository 11/14/2017 [id number] Ambulatory BMSBuilding:B [place] 6 [facility] Repository 10/05/2017 [id number] Ambulatory [place] [facility] ing:LAB.FUTUR Repository E 09/13/2017/ [id number] Ambulatory BMSBuilding:B [place] 8 0 MS.[facility] Repository PAYERS PAYERS ENCOUNTER GUARANTOR PAYER SUBSCRIBER SOURCE 06/12/2018 MARLEN LOERA Primary MARLEN [id number] Insurance:CIGNAPolicy WHITMANDOB: Community PER [place]: [id number] [id number] Repository [address]Iqg: (330) Date:5661-61-30UV [phone] () [id number], [place] [address]XW: 06/12/2018 Secondary TAMIKO Claudio E[place] Insurance:ANTHEMPolic WHITMANDOB: Community y Number: [id number]-Lea General [id number] Repository Date:8328-26-66CK [address] [place] [address]AH: 06/12/2018 Tertiary NOT GIVENUNK [place] Insurance:SELF PAY [facility] Number: Effective Repository Date:2018-06-01 06/10/2018 TAMIKO Claudio Primary MARLEN Mcneil [id number] Insurance:CIGNAPolicy WHITMANDOB: [facility] PER Number: [id number], [place] [id number] Repository [address]Kkm: (330) Date:9807-63-25QL [phone] () [address]118[address]RJYTLDCKACJ, [place] [address]BL: 06/10/2018 Secondary TAMIKO Claudio [place] Insurance:ANTHEMPolic WHITMANDOB: Community y Number: [id number]-Lea General [id number] Repository Date:5781-03-12ZS [address] [place] [address]RS: 06/10/2018 Tertiary NOT GIVENUNK [place] Insurance:SELF PAY [facility] Number: Effective Repository Date:2018-06-10 03/01/2018 Tamiko Claudio Primary MARLEN Vegaman1621 Insurance:CIGNAPolicy WHITMANDOB: Community [place] Number: [id number] [place] [id number] Repository [address]Kst: (330) Date:9290-35-72UX [phone] () 7177[address]UWWUQVNTTRL, [place] [address]LO: 03/01/2018 Secondary Tamiko Claudio [place] Insurance:ANTHEMPolic WhitmanDOB: Community y Number: [id number]-Lea General [id number] Repository Date:2826-56-55FY [address] [place] [address]FX: 03/01/2018 Tertiary NOT GIVENUNK [place] Insurance:SELF PAY [facility]: Effective Repository Date:2018-03-01 02/17/2018 Tamiko Claudio Primary MARLEN Vegaman1621 Insurance:CIGNAPolicy WHITMANDOB: Community [place] Number: [id number] [place] [id number] Repository [address]Ydh: (330) Date:5977-04-85DI [phone] () [id number], [place] [address]IX: 02/17/2018 Secondary Tamiko Claudio [place] Insurance:ANTHEMPolic WhitmanDOB: Community y Number: [id number]-Lea General [id number] Repository Date:8064-38-41HD [address] [place] [address]DS: 02/17/2018 Tertiary NOT GIVENUNK [place] Insurance:SELF PAY [facility] Number: Effective Repository Date:2018-02-17 02/06/2018 Tamiko Claudio Primary MARLEN Vegaman1621 Insurance:CIGNAPolicy WHITMANDOB: Community [place] Number: [id number] [place], [place] [id number] Repository [address]Vgi: (330) Date:0882-32-13LL [phone] () [address]09[address]ZBYLEGSVPQW, [place] [address]CJ: 02/06/2018 Secondary Tamiko G [place] Insurance:ANTHEMPolic WhitmanDOB: Community y Number: [id number]-Lea General [id number] Repository Date:6288-36-01FP [address] [place] [address]EP: 02/06/2018 Tertiary NOT GIVENUNK [place] Insurance:SELF PAY [facility] Number: Effective Repository Date:2018-02-06 01/19/2018 Tamiko Claudio Primary MARLEN Seals1621 Insurance:CIGNAPolicy WHITMANDOB: Community Per Number: [id number] [place], [place] [id number] Repository [address]Ftt: (722) Date:0168-07-61OH [phone] () 310125GHWXDFVCZMY, [place] [address]EQ: 01/19/2018 Secondary Tamiko Claudio [place] Insurance:ANTHEMPolic WhitmanDOB: Community y Number: [id number]-Lea General [id number] Repository Date:2855-13-78RL [address] [place] [address]PM: 01/19/2018 Tertiary NOT GIVENUNK [place] Insurance:SELF PAY [facility] Number: Effective Repository Date:2017-12-13 12/12/2017 Tamiko Claudio Primary MARLEN Vegaman1621 Insurance:CIGNAPolicy WHITMANDOB: Community [place] Number: [id number] [place], [place] [id number] Repository [address]Ddl: (330) Date:4042-93-63VW [phone] () 418016YQHMVLWCBRW, [place] [address]RC: 12/12/2017 Secondary Tamiko Claudio [place] Insurance:ANTHEMPolic WhitmanDOB: Community y Number: [id number]-Lea General [id number] Repository Date:1046-42-71EC [address]BWTHNMA, [place] [address]GN: 12/12/2017 Tertiary NOT GIVENUNK [place] Insurance:SELF PAY [facility] Number: Effective Repository Date:2017-11-11 11/14/2017 Tamiko Claudio Primary MARLENSRIKANTH Vegaman1621 Insurance:CIGNAPolicy WHITMANDOB: Community [place] Number: [id number] [place], [place] [id number] Repository [address]Izw: (330) Date:7552-94-78VI [phone] () [address]45[address]FGYKUHPBLSB, [place] [address]VY: 11/14/2017 Secondary Tamiko Claudio [place] Insurance:ANTHEMPolic WhitmanDOB: Community y Number: [id number]-Lea General [id number] Repository Date:8036-87-56LF [address] [place] [address]PV: 11/14/2017 Tertiary NOT GIVENUNK [place] Insurance:SELF PAY [facility] Hospital Number: Effective Repository Date:2017-09-13 10/05/2017 Tamiko Claudio Primary MARLENSRIKANTH Mcneil [id number] Insurance:CIGNAPolicy WHITMANDOB: Community Per Number: [id number] [place] [id number] Repository [address]Vna: (330) Date:4634-71-11UE [phone] () [id number], [place] [address]WG: 10/05/2017 Secondary Tamiko Claudio [place] Insurance:ANTHEMPolic WhitmanDOB: Community y Number: [id number] Hospital [id number] Repository Date:2829-01-47TL [address] [place] [address]LJ: 10/05/2017 Tertiary NOT GIVENUNK [place] Insurance:SELF PAY [facility] Effective Repository Date:2017-04-08 09/13/2017 Tamiko Claudio Primary MARLEN EVARISTO Seals1621 Insurance:CIGNAPolicy WHITMANDOB: Community [place] Number: [id number] [place] [id number] Repository [address]Vyb: (330) Date:7702-84-61CH [phone] () [id number], [place] [address]RD: 09/13/2017 Secondary Tamiko Mcneil Insurance:ANTHEMPolic [facility] y Number: [id number] Hospital [id number] Repository Date:3605-16-53TF [address]MC[address]Q, [place] [address]UZ: 09/13/2017 Tertiary NOT GIVENUNK [place] Insurance:SELF PAY [facility] Number: Effective Repository Date:2017-09-13
== END ==
PROVIDERS: Family Provider Internal Medicine; PCP Internal Medicine; Referring Provider Internal Medicine; Visit Provider Internal Medicine
DX: E03.9 Hypothyroidism, unspecified (principal); R01.1 Cardiac murmur, unspecified; M81.0 Age-related osteoporosis without current pathological fracture
CPT/HCPCS: 36415; 80061; 82306

== ENCOUNTER 2018-12-14 10:44 | Observation (INO) | payer OTHER, BC, SELFPAY ==
[2018-09-13 12:35] VITALS: BMI 24.1
--- NOTE | 2018-12-11 10:48 | EKG12_ITS ---
Test Reason : PRE-OP Blood Pressure : / mmHG Vent. Rate : 058 BPM Atrial Rate : 058 BPM P-R Int : 138 ms QRS Dur : 080 ms QT Int : 416 ms P-R-T Axes : 055 017 030 degrees QTc Int : 408 ms Sinus bradycardia Otherwise normal ECG Confirmed by MIKE BUTLER, PAZ ([id number]), publications editor IMER DELGADO ([id number]) on 12/12/2018 9:33:40 AM Referred By: Sharon Bean Confirmed By:PAZ MCKEON MD
[2018-12-11 10:56] LABS: Hematocrit 39.7 % (37-47); Hemoglobin 13.2 g/dl (12.0-15.0); Mean Corp Hgb Conc 33.2 g/gl (32-36); Mean Corpuscular Hgb 30.5 pg (27.0-32.0); Mean Corpuscular Volume 91.7 fL (81-99); Mean Platelet Vol. 9.1 fl (6.2-12.0); Platelet Count 302 K/mm3 (150-450); RBC Distribution Width CV 12.6 % (11.6-14.6); RBC Distribution Width SD 41.4 fl (35.1-43.9); Red Blood Count 4.33 M/mm3 (4.2-5.4); White Blood Count 6.6 K/mm3 (4.4-11.0)
[2018-12-11 10:58] LABS: Scan Indicated on CBC? Y/N NO
[2018-12-11 11:30] LABS: Thyroid Stim Hormone (TSH) 1.58 uIU/mL (0.358-3.74)
[2018-12-14] VITALS (12 sets, daily range): BP systolic 82–117; BP diastolic 37–88; PULSE 53–80; RESP 16–18; TEMP 36.1–36.9; O2SAT 96–100; BMI 25.0
[2018-12-14] MEDS: Scopolamine 1mg/72hr Patch 1 PATCH TRANSDERM. (06:14)
[2018-12-14] MEDS: Celecoxib 200 MG Capsule 400 MG PO (06:14)
[2018-12-14] MEDS: Enoxaparin 40 MG/0.4 ML Syringe SC (06:15)
[2018-12-14] MEDS: Acetaminophen 500 MG Tablet 1000 MG PO ×4 (06:15→23:54)
[2018-12-14] MEDS: Magnesium Sulfate 4gm/100mL 4 GM/100 ML IV.SOLN. IV (06:36)
[2018-12-14] MEDS: Lactated Ringers 1,000 ML 40 ML IV (06:36)
[2018-12-14] MEDS: dexAMETHasone 10 MG/ML Vial 8 MG IV (06:37)
[2018-12-14 06:56] LABS: Bedside Glucose 84 mg/dL (70-110)
[2018-12-14] MEDS: Cefazolin 2 GM in 0.9% Normal Saline 100 ML IV (07:28)
--- NOTE | 2018-12-14 07:30 | HYST_PTH ---
PATIENT: MARLEN LARA LOC: MS3 U#:[id number] AGE/SX: 58/F ROOM: MS314 RE12/14/[address]: Dr. Sharon Bean MD : [id number] BED: 1 DIS: 12/15/2018 SPEC #: [id number] RECD: 12/14/18 15:07 STATUS: JENNIFFER REWillie #: [id number] LUIS A: 12/14/18 07:[address]: Sharon Bean DEPT: SURGICAL PATHOLOGY RECD BY: James Novak ENTERED: 12/15/18 08:05 SP TYPE: HYSTERECT OTHR DR: MD Dr. Madeline Damon MD Tissues: Uterus, NOS Procedures: Surgery Specimen Level V HEADER OPERATION: ERAS, vaginal hysterectomy, salpingectomy PRE-OP DIAGNOSIS: Cystocele midline, uterovaginal prolapse TISSUE SUBMITTED: Uterus and bilateral fallopian tubes MICROSCOPIC DIAGNOSIS Uterus and bilateral fallopian tubes, hysterectomy/bilateral salpingectomy: Cervix - chronic cervicitis. Endometrium - inactive pattern with cystic change. Myometrium - adenomyosis. 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 CE:shelia 12/18/18 MICROSCOPIC DESCRIPTION Slides are reviewed. GROSS DESCRIPTION Received in fixative is one container labeled with the patient's name and designated uterus and bilateral fallopian tubes. The specimen consists of a uterus with attached cervix and separate bilateral fallopian tubes. The uterus with attached cervix measures 7.5 x 4 x 2.8 cm and weighs 42 gm. The serosal surface of the uterus is jiménez and smooth. The attached cervix measures 3.5 cm in length x 3.2 cm in diameter. The exocervical mucosa is jiménez with some adherent clotted blood. The uterus is opened to reveal a patent endocervical canal. The triangular endometrial cavity measures 1.5 x 1 cm. The endometrial surface is jiménez and smooth. Sections through the myometrium demonstrate cut surfaces which are jiménez and homogenous. Maximal myometrial thickness is 1.4 cm. The first fallopian tube measures 3 cm in length x 0.5 cm in diameter. A fimbriated end is present. Some small paratubal cysts are noted. Cross-sectioning through the fallopian tube demonstrates a pinpoint lumen. The contralateral fallopian tube measures 3.5 cm in length x 0.5 cm in diameter. The serosal surface is jiménez-pink and smooth. A fimbriated end is present. Cross-sections demonstrate a pinpoint lumen. Quality Liaison sections are submitted as follows: 1 - anterior cervix, 2 - posterior cervix, 3-6 - anterior and posterior endomyometrium, 7 - first fallopian tube, 8 - contralateral fallopian tube. / CE:shelia 12/15/18 TC:3 CPT: 24531
[2018-12-14] MEDS: Vasopressin 20 UNITS/ML Vial (07:52)
[2018-12-14] MEDS: Lubricating Jelly 60 GM Tube 30 GM TOPICAL (08:00)
--- NOTE | 2018-12-14 09:09 | OP.PCM_ITS ---
Problem List (1) Cystocele and rectocele with incomplete uterovaginal prolapse Status: Chronic Comment: plan TVH BS combined case with Dr Glasgow for pelvic support repair (2) Depression with anxiety Status: Chronic (3) Acute sinusitis Status: Acute (4) Anxiety Status: Chronic (5) Heart murmur Status: Chronic (6) Hypothyroidism Status: Chronic (7) Osteoporosis Status: Chronic (8) Seasonal allergies Status: Chronic Report of Operation Date of Procedure: 12/14/18 Pre-Operative Diagnosis: pelvic organ prolapse Post-Operative Diagnosis: same Surgery/Procedure Performed:: TVH BS Description of Surgical Findings:: normal uterus tubes laboratory helper: Jose Tubbs laboratory helper: Madeline Glasgow Type of Anesthesia:: General Special Medications: ancef Specimen's removed: uterus tubes Drains: steiner Estimated Blood Loss (mL): 100 Fluids Replaced: crystalloid Description of Procedure: Patient was taken to the operating room and was placed under general anesthesia was prepped and draped in normal sterile fashion in the dorsal lithotomy posit ion. Preoperative antibiotics and SCDs and Steiner catheter was placed inside the bladder. Weighted speculum was placed in the vagina and the anterior and posterior lip of the cervix was grasped with 2 Elana clamps and circumferentially injected with dilute vasopressin. A circumferential incision was made with a scalpel and the posterior cul-de-sac was entered into sharply and a longneck speculum was placed. The anterior cul-de-sac was also dissected down and entered into sharply and the uterosacral ligaments were clamped cut and suture ligated bilaterally followed by the cardinal ligaments which were Clamped cut and suture ligated bilaterally with 0 Monocryl. The uterus serially descended and progressive bites were taken bilaterally up to the level of the utero-ovarian ligament bilaterally which was clamped transected and double ligated with 0 Monocryl suture and 0 Vicryl free tie. Bilateral fallopian tubes and ovaries were well visualized and noted be within normal limits and the bilateral fallopian tubes were transected across the base with a Tabby clamp and removed and sutured with 0 Vicryl suture. Excellent hemostasis was noted. Posterior peritoneum was reapproximated with 2-0 Vicryl and a modified Henriquez stitch was placed through the posterior vaginal cuff and bilateral uterosacral ligaments across the posterior cul-de-sac skimming along to provide apical support to the vagina. The vagina was closed with [id number] 0 Vicryl pop offs including the posterior and anterior peritoneum in the reapproximation. Excellent hemostasis was noted. Please see Dr. Glasgow's operative note for her portion of the procedure. Grafts/Implants Used: none - Complications none
[2018-12-14] MEDS: Estrogens,Conj. 1 Tube 1 DOSE (09:10)
[2018-12-14] MEDS: Ondansetron 4 MG/2 ML Vial IV (09:14)
[2018-12-14] MEDS: Methylene Blue 1% 100 MG/10 ML VIAL (09:30)
--- NOTE | 2018-12-14 09:53 | OP.PCM_ITS ---
Problem List (1) SHREYAS (stress urinary incontinence, female) Status: Acute (2) Cystocele with incomplete uterovaginal prolapse Status: Acute Report of Operation Date of Procedure: 12/14/18 Pre-Operative Diagnosis: Cystocele with incomplete uterovaginal prolapse, stress urinary incontinence Post-Operative Diagnosis: Same Surgery/Procedure Performed:: Anterior repair, sacrospinous ligament fixation on the right, mid urethral sling and cystoscopy Description of Surgical Findings:: Good apical support, cystocele repair without complication, alters mid urethral sling flat against the urethra without tension. Bilateral ureteral evaluation with urine output. Type of Anesthesia:: General Estimated Blood Loss (mL): 100cc Description of Procedure: The patient is a 58-year-old female who presented to the office with complaints of pelvic organ prolapse and incontinence. She was evaluated with urodynamics and informed consent was obtained for surgical intervention. Was taken to the operating room and placed on the operating room table. Anesthesia monitored the head, neck, airway, IV access and vital signs throughout the case. Once anesthesia was appropriately administered the patient was placed in dorsal lithotomy and Trendelenburg position was prepped and draped in usual sterile fashion. The case was begun by Dr. Bo Lara in a hysterectomy with closure of cuff was performed. The case was then turned over to ok. Her anterior vaginal wall was distended with lidocaine with epinephrine. A midline vertical incision approximately 2 cm in length was then made and sharp and blunt dissection ensued until the right ischial spine was palpable in the right sacral spinous ligament was freed from surrounding tissues. The length of the anterior vaginal wall was significantly short. The Capio device was used to suture the right sacrospinous ligament and the suture was brought out full-thickness to the apex of the vaginal wall. The cystocele was repaired with interrupted 2-0 Vicryl and 2 layer closure. The vaginal wall was then closed over the repair using running interlocking 2-0 Vicryl. Attention was then turned towards the mid urethra where the submucosa was once again dilated with lidocaine with epinephrine. A midline incision was made. Sharp and blunt dissection was used to open the space on either side of the urethra. The trochars were then used to pass the Altis mid urethral sling into the trans- obturator complexes bilaterally. The sling lay flat against the urethra without tension. The tensioning suture was cut and the mucosa was closed using running interlocking 2-0 Vicryl. The apex suture was tied down. A cystourethroscopy was performed revealing left ureteral jet output and on the right side the ureter was intubated with an open ended ureteral catheter. There was no blood identified within the urinary bladder or from the ureteral catheterization. The bladder and urethral mucosa were visualized in their entirety revealing no evidence of trauma or foreign body including suture or mesh. At this time the Hart catheter was replaced and the vagina was packed with Premarin cream and vaginal packing. The patient was awakened and taken to the recovery room in good condition. There were no complications during this procedure. Grafts/Implants Used: Altis midurethral sling - Complications None - Admit VTE Documentation VTE Present on Admission: Yes VTE Mechan Device Prophylaxis: SCD's VTE Pharm Prophylaxis ordered?: Yes
--- NOTE | 2018-12-14 10:02 | DCINST_ITS ---
Discharge Diet: No Restrictions Discharge Activity: May not drive while taking narcotic pain medications., May Shower, - - No lifting more than 5 pounds, no strenuous activity, no vacuuming. No exercise. Okay to walk up and down stairs. May resume sexual activity in: 8 weeks Weight Bearing Status: - Lifting Restrictions: 5 pounds Call your doctor if your incision/area has: Continuous Slow Oozing, Sudden Increased Bleeding, Foul Smelling Discharge Call your doctor if you observe: Fever of 101 or Higher, Inability to urinate, Inability to have a bowel movement, Shortness of breath, Chest pain, Calf discom fort, Uncontrolled pain Additional Instructions: Continue vaginal estrogen cream Allergies/Adverse Reactions: Allergies neurotin Allergy (Severe, Uncoded 12/07/18 10:10) Hives Medications to take at Discharge calcium carbonate 600 mg calcium (1,500 mg) tablet 1,200 mg PO QDAY tab 12/12/17 cholecalciferol (vitamin D3) 2,000 unit capsule 2,000 unit PO QDAY 12/12/17 citalopram 20 mg tablet 20 mg PO DAILY #90 tab 02/17/18 estradiol 0.01% (0.1 mg/gram) vaginal cream See Rx Instructions VAGINAL .COMPLEX #42.5 g 03/01/18 denosumab 60 mg/mL subcutaneous syringe 60 mg SC [id number] #1 ml 06/12/18 levothyroxine 112 mcg tablet 112 mcg PO QDAY #90 tab 07/14/18 Orders to be completed after discharge: 12 Lead EKG [[facility]] Time Frame: 12/07/18, Facility: [facility], Location: Cardiovascular Services Thyroid Stim Hormone (TSH) Time Frame: 12/07/18, Location: Laboratory Primary Care Physician: Ko Eden MD [Primary Care Provider] - Test Results: Test results from this visit will be discussed in further detail at your follow- up appointment, if applicable. Please Follow Up With: Madeline Glasgow MD When: 2 weeks, call for appt Proposed Discharge Date: 12/15/18
[2018-12-14] MEDS: Lactated Ringers 1,000 ML 70 ML IV (10:16)
[2018-12-14] MEDS: Ketorolac 15 MG/ML Vial 30 MG IV ×3 (10:28→23:54)
[2018-12-14] MEDS: Docusate Sodium 100 MG Capsule PO ×2 (12:47→21:51)
[2018-12-14] MEDS: Cefazolin 1 GM/50 ML BAG IV ×2 (14:23→21:51)
--- NOTE | 2018-12-14 15:17 | NURSING ---
1310- Ambulated pt. in triana. Tolerated well.
--- NOTE | 2018-12-14 23:02 | PCM.DC.VHY ---
Discharge Diet: No Restrictions Discharge Activity: May not drive while taking narcotic pain medications., May Shower, - - No lifting more than 5 pounds, no strenuous activity, no vacuuming. No exercise. Okay to walk up and down stairs. May resume sexual activity in: 8 weeks Weight Bearing Status: - Call your doctor if your incision/area has: Continuous Slow Oozing, Sudden Increased Bleeding, Foul Smelling Discharge Call your doctor if you observe: Fever of 101 or Higher, Inability to urinate, Inability to have a bowel movement, Shortness of breath, Chest pain, Calf discomfort, Uncontrolled pain Additional Instructions: Continue vaginal estrogen cream Allergies/Adverse Reactions: Allergies neurotin Allergy (Severe, Uncoded 12/07/18 10:10) Hives Medications to take at Discharge calcium carbonate 600 mg calcium (1,500 mg) tablet 1,200 mg PO QDAY tab 12/12/17 cholecalciferol (vitamin D3) 2,000 unit capsule 2,000 unit PO QDAY 12/12/17 citalopram 20 mg tablet 20 mg PO DAILY #90 tab 02/17/18 estradiol 0.01% (0.1 mg/gram) vaginal cream See Rx Instructions VAGINAL .COMPLEX #42.5 g 03/01/18 denosumab 60 mg/mL subcutaneous syringe 60 mg SC [id number] #1 ml 06/12/18 levothyroxine 112 mcg tablet 112 mcg PO QDAY #90 tab 07/14/18 Orders to be completed after discharge: 12 Lead EKG [[facility]] Time Frame: 12/07/18, Facility: [facility], Location: Cardiovascular Services Thyroid Stim Hormone (TSH) Time Frame: 12/07/18, Location: Laboratory Primary Care Physician: Ko Eden MD [Primary Care Provider] - Test Results: Test results from this visit will be discussed in further detail at your follow-up appointment, if applicable. Please Follow Up With: Madeline Glasgow MD When: 2 weeks, call for appt Proposed Discharge Date: 12/15/18
[2018-12-15] MEDS: Lactated Ringers 1,000 ML 70 ML IV (00:04)
[2018-12-15 00:06] VITALS: BP 111/72; PULSE 58; RESP 16; TEMP 36.9; O2SAT 96
[2018-12-15 06:00] VITALS: BP 110/75; PULSE 55; RESP 18; TEMP 36.8; O2SAT 98
[2018-12-15] MEDS: Ketorolac 15 MG/ML Vial 30 MG IV ×2 (06:33→11:52)
[2018-12-15] MEDS: Cefazolin 1 GM/50 ML BAG IV ×2 (06:34→14:34)
[2018-12-15] MEDS: Acetaminophen 500 MG Tablet 1000 MG PO ×2 (06:34→13:41)
[2018-12-15 07:39] VITALS: O2SAT 96
[2018-12-15 07:55] LABS: Hematocrit 36.3 % (37-47); Hemoglobin 11.8 g/dl (12.0-15.0); Mean Corp Hgb Conc 32.5 g/gl (32-36); Mean Corpuscular Hgb 30.2 pg (27.0-32.0); Mean Corpuscular Volume 92.8 fL (81-99); Mean Platelet Vol. 9.5 fl (6.2-12.0); Platelet Count 265 K/mm3 (150-450); RBC Distribution Width CV 12.9 % (11.6-14.6); RBC Distribution Width SD 43.3 fl (35.1-43.9); Red Blood Count 3.91 M/mm3 (4.2-5.4); White Blood Count 11.3 K/mm3 (4.4-11.0)
[2018-12-15 07:56] LABS: Scan Indicated on CBC? Y/N NO
[2018-12-15 08:55] VITALS: BP 115/73; PULSE 72; RESP 18; TEMP 37; O2SAT 99
[2018-12-15] MEDS: Enoxaparin 40 MG/0.4 ML Syringe SC (09:02)
[2018-12-15] MEDS: Docusate Sodium 100 MG Capsule PO (09:03)
--- NOTE | 2018-12-15 09:32 | NURSING ---
AT 0850, pt assisted to chair by this nurse assistance. This nurse offered to ambulate pt, pt wanted to sit up in chair first. Encouraged and educated importance of ambulating. Call light in reach.
--- NOTE | 2018-12-15 11:35 | NURSING ---
Pt just up to the bathroom. WIRELESS ARCHITECT assisted pt to bathroom first time since steiner was removed this morning. There was no measuring hat in toilet and this nurse was not told until after pt voided. This nurse in room and bladder scanned pt and obtained 437ml post void. PT asked if she still feels like she has to void, she stated, I probably could if I strain, but I don't want to strain.
--- NOTE | 2018-12-15 11:38 | NURSING ---
Left message on Dr. Duncan's answering machine RE: up to void and PVR of 437ml. Phone number of this nurses hospital number was left on message and to call back.
[2018-12-15] MEDS: 0.9% NaCl Peripheral Flush Adult/Peds IV ×2 (11:59→14:34)
--- NOTE | 2018-12-15 12:17 | PCM.PN.OB ---
Patient Problems: Active and Suspected Problems (Last Reviewed 06/12/18 @ 08:10 by Tiffany Mcgregor) SHREYAS (stress urinary incontinence, female) (Acute) Cystocele with incomplete uterovaginal prolapse (Acute) Subjective: doingw ell no complaints pain controlled - Physical Exam General: Alert, Oriented x3 Vital Signs Temp Pulse Resp BP Pulse Ox 98.6 F 72 18 115/73 99 12/15/18 08:55 12/15/18 08:55 12/15/18 08:55 12/15/18 08:55 12/15/18 08:55 Oxygen Flow Rate (L/min) 6 Oxygen Delivery Method Room Air Weight: 164 lb 10.965 oz Body Mass Index (BMI) 25.0 Finger Stick Blood Glucose 84 Intake and Output for Last 24 Hours 12/13/18 12/14/18 12/15/18 23:59 23:59 23:59 Intake Total 2200 / 3571 2352 / 2352 Output Total 525 / 825 1160 / 1160 Balance 1675 / 2746 1192 / 1192 Laboratory Tests Past 24 Hrs 12/15/18 07:17 WBC 11.3 H RBC 3.91 L Hgb 11.8 L Hct 36.3 L MCV 92.8 MCH 30.2 MCHC 32.5 RDW 12.9 RDW Differential 43.3 Plt Count 265 MPV 9.5 Medical Necessity - Tobacco Use Smoking Status: Never smoker Tobacco Use: Non-smoker Assessment/Plan All Active Problems (Last Reviewed 06/12/18 @ 08:10 by Tiffany Mcgregor) SHREYAS (stress urinary incontinence, female) (Acute) Cystocele with incomplete uterovaginal prolapse (Acute) Acute sinusitis (Acute) s/p TVH BS pelvic support repair pod ! routine postop care dc home today
[2018-12-15 13:39] VITALS: BP 115/76; PULSE 66; RESP 20; TEMP 36.9; O2SAT 95
--- NOTE | 2018-12-15 13:52 | NURSING ---
Pt up to void. 100cc voided along with two golf ball sized stools. This nurse bladder scanned her after she voided 100cc and obtained 800ml of PVR. This nurse made pt get up and walk. Dr. Glasgow was also informed of the above. Order to put Steiner in and send home with steiner. Make appointment for Tuesday or Tuesday next week.
--- NOTE | 2018-12-15 14:42 | NURSING ---
Hart inserted and 700ml of urine obtained immediately.
--- NOTE | 2018-12-15 15:15 | NURSING ---
Left message with Dr. Ward's nurse RE: urine retention and going home with steiner per Dr. Glasgow.
--- NOTE | 2018-12-15 17:44 | PCM.HP.STD ---
Problem List (1) Cystocele and rectocele with incomplete uterovaginal prolapse Status: Chronic Comment: plan TVH BS combined case with Dr Glasgow for pelvic support repair (2) Depression with anxiety Status: Chronic (3) Acute sinusitis Status: Acute (4) Anxiety Status: Chronic (5) Heart murmur Status: Chronic (6) Hypothyroidism Status: Chronic (7) Osteoporosis Status: Chronic (8) Seasonal allergies Status: Chronic History of Present Illness Date of Admission: 12/14/18 The patient is a 58 year old F with pelvic organ prolapse presents for hysterectomy and pelvic floor repair. Past Medical History Past Medical History (Chronic Problems): Chronic Problems (Last Reviewed 06/12/18 @ 08:10 by Tiffany Mcgregor) Cystocele and rectocele with incomplete uterovaginal prolapse (Chronic) plan TVH BS combined case with Dr Glasgow for pelvic support repair Depression with anxiety (Chronic) Anxiety (Chronic) Heart murmur (Chronic) Hypothyroidism (Chronic) Osteoporosis (Chronic) Seasonal allergies (Chronic) Medical History: Medical History (Last Reviewed 06/12/18 @ 08:10 by Tiffany Mcgregor) Anxiety (Chronic) F41.9 Heart murmur (Chronic) R01.1 Hypothyroidism (Chronic) E03.9 Osteoporosis (Chronic) M81.0 Seasonal allergies (Chronic) J30.2 Trigeminal neuralgia G50.0 Allergies neurotin Allergy (Severe, Uncoded 12/07/18 10:10) Hives Home Medications: Ambulatory Orders Medication Instructions Recorded calcium carbonate 600 mg calcium 1,200 mg PO QDAY tab 12/12/17 (1,500 mg) tablet cholecalciferol (vitamin D3) 2,000 2,000 unit PO QDAY 12/12/17 unit capsule citalopram 20 mg tablet 20 mg PO DAILY #90 tab 02/17/18 estradiol 0.01% (0.1 mg/gram) See Rx Instructions VAGINAL 03/01/18 vaginal cream .COMPLEX #42.5 g denosumab 60 mg/mL subcutaneous 60 mg SC [id number] #1 ml 06/12/18 syringe levothyroxine 112 mcg tablet 112 mcg PO QDAY #90 tab 07/14/18 Naproxen [Naprosyn] 250 - 500 mg PO Q8H PRN PRN #30 tab 12/14/18 Oxycodone HCl/Acetaminophen 1 - 2 tab PO Q4H PRN PRN 7 Days 12/14/18 [Percocet 5-325] #15 tab Surgical History: Surgical History (Last Reviewed 06/12/18 @ 08:10 by Tiffany Mcgregor) H/O thyroidectomy E89.0 History of tubal ligation Z98.51 bunion removal Smoking Status: Never smoker Tobacco Use: Non-smoker Review of Systems Constitutional: Denies: Fever, Malaise Eyes: Denies: Blurred vision, Vision Change HEENT: Denies: Head Aches, Visual Changes Cardiovascular: Denies: Chest Pain, Palpitations Respiratory: Denies: Cough, Shortness of Breath, Wheezing Gastrointestinal: Denies: Abdominal Pain, Diarrhea, Nausea, Vomiting Genitourinary: Denies: Dysuria, Hematuria Musculoskeletal: Denies: Joint Pain, Muscle pain Skin: Denies: Lesions, Rash Neurological: Denies: Blurred vision, Focal weakness, Headaches Psychiatric: Denies: Anxiety, Depression Endocrine: Denies: Heat/ Cold Intolerance Hematologic/ Lymphatic: Denies: Easy Bruising, Easy Bleeding VTE Information - Inpt Only VTE Present on Admission: No Patient Problems: Active and Suspected Problems (Last Reviewed 06/12/18 @ 08:10 by Tiffany Mcgregor) SHREYAS (stress urinary incontinence, female) (Acute) Cystocele with incomplete uterovaginal prolapse (Acute) - Physical Exam General: Alert, Oriented x3 HEENT: EOMI, Normocephalic Oral: Moist Mucosa Neck: Supple, Trachea Midline, Thyroid Normal Size and Texture Lungs: Clear to auscultation Cardiovascular: Regular rate Abdomen: Soft, Non Tender Extremities: No edema Vital Signs Temp Pulse Resp BP Pulse Ox 98.4 F 66 20 H 115/76 95 12/15/18 13:39 12/15/18 13:39 12/15/18 13:39 12/15/18 13:39 12/15/18 13:39 Oxygen Flow Rate (L/min) 6 Oxygen Delivery Method Room Air Weight: 164 lb 10.965 oz Body Mass Index (BMI) 25.0 Finger Stick Blood Glucose 84 Intake and Output for Last 24 Hours 12/13/18 12/14/18 12/15/18 23:59 23:59 23:59 Intake Total 2200 / 3571 2592 / 2592 Output Total 525 / 825 2560 / 2560 Balance 1675 / 2746 32 / 32 Laboratory Tests Past 24 Hrs 12/15/18 07:17 WBC 11.3 H RBC 3.91 L Hgb 11.8 L Hct 36.3 L MCV 92.8 MCH 30.2 MCHC 32.5 RDW 12.9 RDW Differential 43.3 Plt Count 265 MPV 9.5 Assessment/Plan All Active Problems (Last Reviewed 06/12/18 @ 08:10 by Tiffany Mcgregor) SHREYAS (stress urinary incontinence, female) (Acute) Cystocele with incomplete uterovaginal prolapse (Acute) Acute sinusitis (Acute) patient here for TVH BS cysto and SSLF and sling anterior repair combo case with ashlyn. discussed surgical risks including risks of anesthesia, infection, bleeding, injury to bowel, bladder or blood vessels, and patient wishes to proceed with surgery.
[2018-12-15 18:06] VITALS: BP 121/76; PULSE 70; RESP 18; TEMP 36.6; O2SAT 97
== END 2018-12-15 18:10 | disposition home or self-care (01) ==
LOC: SDC 12:47
PROVIDERS: Urology; Admitting Provider Obstetrics & Gynecology; Family Provider Internal Medicine; PCP Internal Medicine; Referring Provider Obstetrics & Gynecology; Visit Provider Obstetrics & Gynecology
PROC: (CPT 58260; principal; 2018-12-14 07:10)
PROC: (CPT 57260; 2018-12-14 07:10)
DX: N81.2 Incomplete uterovaginal prolapse (principal); N39.3 Stress incontinence (female) (male); E03.9 Hypothyroidism, unspecified; M81.0 Age-related osteoporosis without current pathological fracture; F41.8 Other specified anxiety disorders
CPT/HCPCS: 57240; 57288; 58262; 36415; 82962; 84443; 85027; 86850; 86900; 88307; 93005; 96365; 96366; 96372; 96375; 96376; 99218; J7120; A4216; C1758; G0378; G0379; J2405

== ENCOUNTER → 2019-01-22 | Outpatient (CLI) | payer OTHER, BC, SELFPAY ==
[2018-12-25 08:14] VITALS: BMI 25.0
--- NOTE | 2019-01-22 08:40 | BI_ITS ---
MAMMOGRAPHY - BILATERAL SCREENING REASON FOR EXAM: Female, 58 years old. Routine annual screening examination. PERTINENT HISTORY: Non-contributory. TECHNIQUE: Digital bilateral breast nas (3D mammographic acquisition) in the CC and MLO projections. 2-D mediolateral oblique (MLO) and craniocaudad (CC) views of both breasts were obtained. CAD: Full Field Digital Mammography with Computer Added Detection was performed. COMPARISON: Comparison is made with prior examination dated January 19, 2018 and June 23, 2016. FINDINGS: Breast Composition: The breasts are heterogeneously dense, which may obscure small masses. There are no dominant masses or suspicious calcifications. Stable small bilateral benign appearing axillary lymph nodes. No other significant abnormalities are identified. There has been no significant change since the prior study. BI/SCREEN MAMM (CAD) W/NAS BILAT IMPRESSION: Stable bilateral screening mammogram. Yearly follow-up mammogram recommended. (A) ASSESSMENT CATEGORY: BIRADS Category 2: Benign. A letter regarding these results will be sent to the patient by the facility within 30 days. Approximately 10% of breast cancers are not detected by mammography. A normal mammogram should not delay biopsy of a clinically suspicious abnormality. [id number] Electronically Signed: Fly Bingham, at 10:33 EDT , Service support ,
== END | disposition home or self-care (01) ==
LOC: OPBI 08:37
PROVIDERS: Family Provider Internal Medicine; PCP Internal Medicine; Referring Provider Internal Medicine; Visit Provider Internal Medicine
DX: Z00.00 Encounter for general adult medical examination without abnormal findings (principal); Z12.31 Encounter for screening mammogram for malignant neoplasm of breast
CPT/HCPCS: 77063; 77067

== ENCOUNTER 2019-04-14 08:55 | Emergency (ER) | payer OTHER, BC, SELFPAY ==
[2019-04-05 12:26] VITALS: BMI 25.0
[2019-04-14 08:56] VITALS: BP 114/72; PULSE 66; RESP 17; TEMP 36.9; O2SAT 100; BMI 24.5
--- NOTE | 2019-04-14 09:10 | RAD_ITS ---
STUDY: X-RAY - BILATERAL WRISTS REASON FOR EXAM: Female, 58 years old. Old. Pain over both navicularis. TECHNIQUE - RIGHT WRIST: 4 view(s) of the right wrist were obtained. TECHNIQUE - LEFT WRIST: 4 view(s) of the left wrist were obtained. COMPARISON: None. FINDINGS - RIGHT WRIST: Normal visualized distal radius and ulna. Normal radiocarpal articulation. Normal distal radioulnar articulation. Normal carpal bones. Normal carpal articulations. Normal carpometacarpal articulation of the thumb. Normal second through fifth carpometacarpal articulations. Normal visualized metacarpal bones. The soft tissue structures are unremarkable. FINDINGS - LEFT WRIST: Normal visualized distal radius and ulna. Normal radiocarpal articulation. Normal distal radioulnar articulation. Suspicious hairline fracture in the left navicular bone. Normal remaining carpals. Normal carpal articulations. Normal carpometacarpal articulation of the thumb. Normal second through fifth carpometacarpal articulations. Normal visualized metacarpal bones. The soft tissue structures are unremarkable. RAD/Wrist min 3 Views IMPRESSION: Right Wrist: No suspicious acute fracture or dislocation of the right wrist. Left Wrist: Suspicious hairline fracture of the left navicular bone. Electronically Signed: Lauro Lisa MD at 9:57 EDT , Service support ,
--- NOTE | 2019-04-14 09:16 | ED.VIS.GEN ---
History of Present Illness Chief Complaint: Upper Extremity Injury Informant: Patient Onset: Yesterday Context: Sudden Onset Timing: Continuous Current Severity: Moderate Maximum Severity: Moderate Narrative: The patient is a svsly-oftl-vugemnzw female that presents to the emergency department after mechanical fall. Patient was at work last night. She states that she slipped on a close bladder changer. She fell onto her buttocks and caught herself with outstretched hands behind her. Since then, she had pain in both wrists. She did not strike her head. She denies loss of consciousness. She denies any other systemic symptoms. She is otherwise been in her normal state of health. Prior similar symptoms: No Recent Illness/Hospitalization: No Past Medical History - Allergies and Home Meds Allergies/Adverse Reactions: Allergies gabapentin [From Neurontin] Allergy (Severe, Verified 04/14/19 08:56) Hives Primary Care Physician: Ko Eden MD [Primary Care Provider] - Prior records reviewed: Yes Past Medical History: None Surgical History: no surgical history Smoking Status: Never smoker Review of Systems General: Denies: Chills, Fever, Sweats Eyes: Denies: Visual changes - bilaterally, Diplopia ENT: Denies: Rhinorrhea, Sore throat Cardiovascular: Denies: Chest pain, Palpitations Respiratory: Denies: Dyspnea, Cough, Dyspnea on exertion Gastrointestinal: Denies: Abdominal pain, Nausea, Vomiting, Diarrhea, Melena, Hematochezia Genitourinary: Denies: Dysuria, Hematuria, Frequency Musculoskeletal: Denies: Back pain, Extremity Pain Skin: Denies: Rash, Wounds Neurological: Denies: Headache, Weakness, Numbness Physical Exam Vital Signs/Narrative: Vital Signs Temp Pulse Resp BP Pulse Ox 04/14/19 08:56 98.5 F 66 17 114/72 100 Inital Vital Signs reviewed: Yes General: Well nourished, Well developed, No Acute Distress Head: Normocephalic, Atraumatic Eyes: Perrl, EOMI ENT: Moist mucous membranes, No rhinorrhea Neck: Supple, Nontender Cardiovascular: Regular rate, Regular rhythm, No murmurs Respiratory: No distress, CTA bilaterally, Chest nontender Abdomen: Soft, Nontender, Nondistended, Normal bowel sounds Back: Nontender, Normal Inspection Extremities: No edema, Tenderness - Mild tenderness on the dorsum of both wrists. 2+ pulses. Slight contusion. Neurovascularly intact distally. No pain in the hand, forearm, or elbows. Skin: Normal color, No rash Neurological: Alert, Oriented x3, Cranial nerves II-XII grossly intact, Normal Strength, Normal Sensation Psychological: Normal affect, Normal Mood Diagnostic/Tx/Re-eval Clinical Impression(s) from Imaging Studies Wrist X-Ray 04/14/19 09:10 IMPRESSION: Right Wrist: No suspicious acute fracture or dislocation of the right wrist. Left Wrist: Suspicious hairline fracture of the left navicular bone. Electronically Signed: Lauro Lisa MD at 9:57 EDT , Service support , - Medical Decision Making The patient was placed in an Ortho-Glass thumb spica on the left. She was placed in a Velcro wrist splint on the right. X-rays did show a questionable navicular fracture. With this, the patient will be given outpatient orthopedic referral. She will be discharged home. Impression 1. Right wrist sprain 2. Closed left navicular fracture ED Disposition - Plan for ED Patient: Instructions: NAVICULAR FRACTURE, Wrist (Confirmed) Referrals: Carlos Suarez DO [STAFF PHYSICIAN] -
== END 2019-04-14 10:30 | disposition home or self-care (01) ==
LOC: ED 09:36
PROVIDERS: Emergency Provider Emergency Medicine; Family Provider Internal Medicine; PCP Internal Medicine
DX: S62.002A Unspecified fracture of navicular [scaphoid] bone of left wrist, initial encounter for closed fracture (principal); S63.501A Unspecified sprain of right wrist, initial encounter; W01.0XXA Fall on same level from slipping, tripping and stumbling without subsequent striking against object, initial encounter; Y93.9 Activity, unspecified; Y92.9 Unspecified place or not applicable
CPT/HCPCS: 29125; 73110; 99283

== ENCOUNTER → 2019-07-06 09:30 | Outpatient (CLI) | payer OTHER, BC, SELFPAY ==
[2019-07-06 09:04] VITALS: BMI 24.5
[2019-07-06 12:24] LABS: Hematocrit 44.7 % (37-47); Hemoglobin 14.6 g/dL (12.0-15.0); Mean Corp Hgb Conc 32.7 g/dL (32-36); Mean Corpuscular Hgb 30.8 pg (27.0-32.0); Mean Corpuscular Volume 94.3 fL (81-99); Mean Platelet Vol. 9.5 fl (6.2-12.0); Platelet Count 399 K/mm3 (150-450); RBC Distribution Width CV 12.6 % (11.6-14.6); RBC Distribution Width SD 43.4 fl (35.1-43.9); Red Blood Count 4.74 M/mm3 (4.2-5.4); White Blood Count 6.1 K/mm3 (4.4-11.0)
[2019-07-06 12:45] LABS: Cholesterol 230 mg/dL (200); High Density Lipoprotein 68 mg/dL; T4 Free Direct 1.16 ng/dL (0.76-1.46); Triglycerides 42 mg/dL; Very Low Density Lipoprotein 8 mg/dL (5-40)
== END ==
PROVIDERS: Family Provider Internal Medicine; PCP Internal Medicine; Visit Provider Nurse Practitioner Family
DX: E03.9 Hypothyroidism, unspecified (principal); F41.8 Other specified anxiety disorders; R53.83 Other fatigue
CPT/HCPCS: 36415; 80061; 84439; 84443; 85027

== ENCOUNTER → 2019-08-03 07:58 | Outpatient (CLI) | payer OTHER, SELFPAY ==
[2019-07-06 09:04] VITALS: BMI 24.5
--- NOTE | 2019-08-03 08:01 | CT_ITS ---
HISTORY: Left wrist fracture. Exam is a CT scan of the left wrist. Technique: Contiguous helical images were obtained through the left breast. 2-D and 3-D reformats. 302 images. Comparison study is an x-ray from April 14, 2019. Findings: The distal third of the scaphoid demonstrates comminuted fracture with several fracture fragments. There may be a nondisplaced fracture on the dorsal lateral aspect of the trapezium. A small ossific fragment is present within the region of the scapholunate ligament between the scaphoid and the lunate distally, at the level of the articulation of the lateral aspect of the lunate with the capitellum. This appears to be well-corticated, but could be a displaced fracture fragment. There is some edema within the subcutaneous fat on the volar surface of the wrist extending to the palm. Trace edema on the dorsal aspect of the wrist. CT/Extremity Upper without Contra IMPRESSION: Comminuted distal scaphoid fracture. Tiny avulsion fracture on the dorsal lateral aspect of the trapezium. Tiny ossific fragment on the dorsal distal aspect of the scapholunate joint with some widening dorsally possibly representing an old avulsion injury. Individualized dose optimization techniques were used for this CT. at 0534 Reported and signed by: Carlos A Balderas MD Electronically Signed: Carlos A Balderas MD at 5:33 EST Tel , Service support ,
--- NOTE | 2019-08-03 08:07 | CT_ITS ---
HISTORY: Left wrist fracture. Exam is a CT scan of the left wrist. Technique: Contiguous helical images were obtained through the left breast. 2-D and 3-D reformats. 302 images. Comparison study is an x-ray from April 14, 2019. Findings: The distal third of the scaphoid demonstrates comminuted fracture with several fracture fragments. There may be a nondisplaced fracture on the dorsal lateral aspect of the trapezium. A small ossific fragment is present within the region of the scapholunate ligament between the scaphoid and the lunate distally, at the level of the articulation of the lateral aspect of the lunate with the capitellum. This appears to be well-corticated, but could be a displaced fracture fragment. There is some edema within the subcutaneous fat on the volar surface of the wrist extending to the palm. Trace edema on the dorsal aspect of the wrist. CT/Coronals Sag Multi Obl 3-D Rec IMPRESSION: Comminuted distal scaphoid fracture. Tiny avulsion fracture on the dorsal lateral aspect of the trapezium. Tiny ossific fragment on the dorsal distal aspect of the scapholunate joint with some widening dorsally possibly representing an old avulsion injury. Individualized dose optimization techniques were used for this CT. at 0534 Reported and signed by: Carlos A Balderas MD Electronically Signed: Carlos A Balderas MD at 5:33 EST Tel , Service support ,
== END ==
PROVIDERS: PCP Internal Medicine
DX: S62.012D Displaced fracture of distal pole of navicular [scaphoid] bone of left wrist, subsequent encounter for fracture with routine healing (principal)
CPT/HCPCS: 73200; 76377

== ENCOUNTER → 2019-10-15 12:10 | Outpatient (CLI) | payer BC, SELFPAY ==
[2019-10-15 11:09] VITALS: BMI 24.5
== END ==
PROVIDERS: PCP Internal Medicine; Referring Provider Nurse Practitioner Family; Visit Provider Nurse Practitioner Family
DX: E03.9 Hypothyroidism, unspecified (principal)
CPT/HCPCS: 84443

== ENCOUNTER → 2020-08-26 08:30 | Outpatient (CLI) | payer OTHER, SELFPAY ==
[2020-08-26 08:08] VITALS: BMI 25.4
[2020-08-26 12:15] LABS: Absolute Lymphocyte Count 1.61 X10^3/uL (0.83-4.51); Absolute Neutrophil Count 2.6 X10^3/uL (2.0-7.7); Basophil# 0.04 X10^3/uL; Basophil% 0.8 % (0-1); Eosinophil# 0.07 X10^3/uL; Eosinophils% 1.4 % (0-5); Hematocrit 45.6 % (37-47); Hemoglobin 14.4 g/dL (12.0-15.0); Lymphocyte # 1.61 X10^3/ul (4.0); Lymphocyte % 33.3 % (19-41); Mean Corp Hgb Conc 31.6 g/dL (32-36); Mean Corpuscular Hgb 30.1 pg (27.0-32.0); Mean Corpuscular Volume 95.4 fL (81-99); Mean Platelet Vol. 9.4 fl (6.2-12.0); Monocyte# 0.49 X10^3/uL; Monocyte% 10.1 % (0-10); NRBC Flagged by Analyzer 0 % (0-5); Neutrophil # 2.61 X10^3/uL (2.7-7.7); Neutrophil % 54.2 % (47-70); Platelet Count 344 K/mm3 (150-450); RBC Distribution Width CV 12.8 % (11.6-14.6); RBC Distribution Width SD 44.6 fl (35.1-43.9); Red Blood Count 4.78 M/mm3 (4.2-5.4); White Blood Count 4.8 K/mm3 (4.4-11.0)
[2020-08-26 12:27] LABS: Vitamin D,25 Hydroxy 54.7 ng/mL
[2020-08-26 12:38] LABS: ALB/GLOB Ratio 0.9 RATIO (0.9-2.4); AST(SGOT) 26 U/L (15-37); Alanine Aminotransfer ALT/SGPT 41 U/L (13-56); Albumin, Serum 3.7 g/dL (3.2-5.0); Alkaline Phosphatase 74 U/L (45-117); Anion Gap 9 (5-15); BUN 16 mg/dL (7-18); BUN/Creat Ratio 16.8 RATIO (10-20); Calcium,Total 9.6 mg/dL (8.5-10.1); Chloride 103 mmol/L (98-107); Cholesterol 199 mg/dL (200); Creatinine, Serum 0.96 mg/dL (0.55-1.02); EST Glomerular Filtration Rate 64 mL/min (>60); Est Glom Filt Rate - Afr Amer 77 mL/min (>60); Globulin 3.9 g/dL (2.2-4.2); Glucose 90 mg/dL (74-106); High Density Lipoprotein 65 mg/dL; Potassium 4.5 mmol/L (3.5-5.1); Protein, Total 7.6 g/dL (6.4-8.2); Sodium Level 138 mmol/L (136-145); T4 Free Direct 1.48 ng/dL (0.76-1.46); Thyroid Stim Hormone (TSH) 0.31 uIU/mL (0.358-3.74); Triglycerides 50 mg/dL; Very Low Density Lipoprotein 10 mg/dL (5-40)
== END ==
PROVIDERS: PCP Internal Medicine; Visit Provider Nurse Practitioner Family
DX: E03.9 Hypothyroidism, unspecified (principal); F41.8 Other specified anxiety disorders; F41.9 Anxiety disorder, unspecified; M81.0 Age-related osteoporosis without current pathological fracture; E55.9 Vitamin D deficiency, unspecified
CPT/HCPCS: 36415; 80053; 80061; 82306; 84439; 84443; 85025

== ENCOUNTER → 2020-09-12 | Outpatient (CLI) | payer OTHER, SELFPAY ==
[2020-09-12 11:07] VITALS: BMI 25.4
== END | disposition home or self-care (01) ==
LOC: LABSPEC 16:22
PROVIDERS: PCP Internal Medicine; Referring Provider Obstetrics & Gynecology; Visit Provider Obstetrics & Gynecology
DX: N89.8 Other specified noninflammatory disorders of vagina (principal)
CPT/HCPCS: 87070; 87205

== ENCOUNTER → 2020-11-11 07:50 | Outpatient (CLI) | payer OTHER, SELFPAY ==
[2020-09-12 11:07] VITALS: BMI 25.4
[2020-09-16 08:40] VITALS: BMI 25.2
--- NOTE | 2020-11-11 07:52 | BI_ITS ---
MAMMOGRAPHY - BILATERAL SCREENING 3-D TOMOSYNTHESIS REASON FOR EXAM: Female, 60 years old. Routine screening PERTINENT HISTORY: No significant family history. TECHNIQUE: 2-D mammograms and 3-D Tomosynthesis of the breast (s) were performed. CAD was performed. COMPARISON: 01/22/2019 FINDINGS: The breast composition is heterogeneously dense that can obscure small breast masses. Scattered benign calcifications are seen. No dense spiculated masses or suspicious microcalcifications are identified. No architectural distortion is identified. There is no skin thickening or retraction. There has been no significant change since the prior study. BI/SCRN MAMM (CAD)W/NAS BILAT IMPRESSION: No mammographic signs of malignancy. Routine yearly mammograms recommended. ASSESSMENT CATEGORY: BIRADS Category 2: Benign. A letter regarding these results will be sent to the patient by the facility within 30 days. FOLLOW UP RECOMMENDATION: Yearly follow up mammogram recommended. (A) Approximately 10% of breast cancers are not detected by mammography. A normal mammogram should not delay biopsy of a clinically suspicious abnormality. Electronically Signed: Alexy Rios MD at 9:53 EDT , Service support ,
== END ==
PROVIDERS: PCP Internal Medicine; Referring Provider Obstetrics & Gynecology; Visit Provider Obstetrics & Gynecology
DX: Z12.31 Encounter for screening mammogram for malignant neoplasm of breast (principal)
CPT/HCPCS: 77063; 77067

== ENCOUNTER → 2021-03-04 08:42 | Outpatient (CLI) | payer OTHER, SELFPAY ==
[2021-03-04 12:31] LABS: T4 Free Direct 1.28 ng/dL (0.76-1.46); Thyroid Stim Hormone (TSH) 0.85 uIU/mL (0.358-3.74)
== END ==
PROVIDERS: PCP Internal Medicine; Referring Provider Nurse Practitioner Family; Visit Provider Nurse Practitioner Family
DX: E03.9 Hypothyroidism, unspecified (principal)
CPT/HCPCS: 36415; 84439; 84443

== ENCOUNTER → 2021-03-17 08:52 | Outpatient (CLI) | payer OTHER, SELFPAY ==
--- NOTE | 2021-03-17 08:59 | BD_ITS ---
STUDY: DUAL ENERGY X-RAY ABSORPTIOMETRY / DXA REASON FOR EXAM: Female, 60 years old. OSTEOPOROSIS TECHNIQUE: Bone Mineral Density (BMD) measurements of lumbar spine and bilateral hips were obtained. COMPARISON: Comparison is made with prior study dated 01/19/2018. FINDINGS: Lumbar Spine (L1-L4): g/cm2 (0.839) / T-score (-1.9) / Z-score (-0.6) Findings are suggestive of osteopenia with a moderate fracture risk. Left Femur Total: g/cm2 (0.770) / T-score (-1.4) / Z-score (-0.5) Left Femoral Neck: g/cm2 (0.657) / T-score (-1.7) / Z-score (-0.5) Right Femur Total: g/cm2 (0.793) / T-score (-1.2) / Z-score (-0.3) Right Femoral Neck: g/cm2 (0.673) / T-score (-1.6) / Z-score (-0.4) The T-Scores on the most recent prior examination were: Lumbar Spine (L1-L4): There has been improvement of bone density since the previous examination. Left Femur Total: which represents an improvement of 7.9%. Right Femur Total: which represents an improvement of 8.3%. BD/Dexa Bone Density Study IMPRESSION: The patient is considered osteopenic as outlined below according to World [employer] Organization (WHO) criteria with a moderate fracture risk. There has been improvement of bone density since the previous examination. Reference Information: The T-score is the number of standard deviations above or below the standard which is normal for young adults at their peak bone mineral density. The World Health Organization (WHO) interprets the T-scores as follows: Above -1 Normal bone density Between -1 and -2.5 Osteopenia Equal to / or below -2.5 Osteoporosis As a practical clinical guideline, osteopenia may be graded as follows: Mild -1 through -1.5 Moderate -1.6 through -2.0 Severe -2.1 through -2.4 The Z-score is the number of standard deviations above or below age-matched controls. A Z-score of less than -1.5 would be considered abnormal. References: 1. NIH Osteoporosis and Related Bone Diseases www osteo.org 2. International Society for Clinical Densitometry www iscd.org 3. National Osteoporosis Foundation www nof.org Electronically Signed: Fly Bingham MD at 15:20 EDT , Service support ,
== END ==
PROVIDERS: PCP Internal Medicine; Referring Provider Nurse Practitioner Family; Visit Provider Nurse Practitioner Family
DX: M81.0 Age-related osteoporosis without current pathological fracture (principal)
CPT/HCPCS: 77080

== ENCOUNTER 2021-09-01 08:33 | Outpatient (CLI) | payer BC, SELFPAY ==
[2021-09-01 12:21] LABS: Absolute Lymphocyte Count 1.81 X10^3/uL (0.83-4.51); Absolute Neutrophil Count 5.5 X10^3/uL (2.0-7.7); Basophil# 0.03 X10^3/uL; Basophil% 0.4 % (0-1); Eosinophils% 1.2 % (0-5); Hematocrit 46.1 % (37-47); Hemoglobin 14.9 g/dL (12.0-15.0); Lymphocyte # 1.81 X10^3/ul (0.83-4.51); Lymphocyte % 22.5 % (19-41); Mean Corp Hgb Conc 32.3 g/dL (32-36); Mean Corpuscular Hgb 31.3 pg (27.0-32.0); Mean Corpuscular Volume 96.8 fL (81-99); Mean Platelet Vol. 9.6 fl (6.2-12.0); Monocyte# 0.64 X10^3/uL; Monocyte% 7.9 % (0-10); NRBC Flagged by Analyzer 0 % (0-5); Neutrophil # 5.46 X10^3/uL (2.7-7.7); Neutrophil % 67.8 % (47-70); Platelet Count 369 K/mm3 (150-450); RBC Distribution Width CV 12.9 % (11.6-14.6); RBC Distribution Width SD 45.7 fl (35.1-43.9); Red Blood Count 4.76 M/mm3 (4.2-5.4); White Blood Count 8.1 K/mm3 (4.4-11.0)
[2021-09-01 13:20] LABS: ALB/GLOB Ratio 0.9 RATIO (0.9-2.4); AST(SGOT) 26 U/L (15-37); Alanine Aminotransfer ALT/SGPT 32 U/L (13-56); Albumin, Serum 3.5 g/dL (3.2-5.0); Alkaline Phosphatase 68 U/L (45-117); Anion Gap 1 (5-15); BUN 23 mg/dL (7-18); Calcium,Total 10.1 mg/dL (8.5-10.1); Chloride 108 mmol/L (98-107); Cholesterol 191 mg/dL (200); Creatinine, Serum 0.96 mg/dL (0.55-1.02); EST Glomerular Filtration Rate 63 mL/min (>60); Est Glom Filt Rate - Afr Amer 76 mL/min (>60); Globulin 3.7 g/dL (2.2-4.2); Glucose 77 mg/dL (74-106); High Density Lipoprotein 58 mg/dL; Protein, Total 7.2 g/dL (6.4-8.2); Sodium Level 137 mmol/L (136-145); Thyroid Stim Hormone (TSH) 0.73 uIU/mL (0.358-3.74); Triglycerides 65 mg/dL; Very Low Density Lipoprotein 13 mg/dL (5-40)
== END 2021-09-01 23:59 | disposition home or self-care (01) ==
PROVIDERS: PCP Internal Medicine; Referring Provider Nurse Practitioner Family; Visit Provider Nurse Practitioner Family
DX: E03.9 Hypothyroidism, unspecified (principal); M81.0 Age-related osteoporosis without current pathological fracture; F41.8 Other specified anxiety disorders
CPT/HCPCS: 36415; 80053; 80061; 84443; 85025

== ENCOUNTER → 2021-11-12 | Outpatient (CLI) | payer BC, SELFPAY ==
--- NOTE | 2021-11-12 08:03 | BI_ITS ---
MAMMOGRAPHY - BILATERAL SCREENING REASON FOR EXAM: Female, 61 years old. Routine annual screening examination. PERTINENT HISTORY: Non-contributory. TECHNIQUE: Digital bilateral breast nas (3D mammographic acquisition) in the CC and MLO projections. 2-D mediolateral oblique (MLO) and craniocaudad (CC) views of both breasts were obtained. CAD: Full Field Digital Mammography with Computer Added Detection was performed. COMPARISON: Comparison is made with prior study of 11/11/2020 and 01/22/2019. FINDINGS: Breast Composition: The breasts are heterogeneously dense, which may obscure small masses. There are no dominant masses or suspicious calcifications. No other significant abnormalities are identified. There has been no significant change since the prior study. BI/SCRN MAMM (CAD)W/NAS BILAT IMPRESSION: Stable bilateral screening mammogram. Yearly follow-up mammogram recommended. (A) ASSESSMENT CATEGORY: BIRADS Category 1: Negative. A letter regarding these results will be sent to the patient by the facility within 30 days. Approximately 10% of breast cancers are not detected by mammography. A normal mammogram should not delay biopsy of a clinically suspicious abnormality. [id number] Electronically Signed: Fly Bingham MD at 8:49 EDT ,
== END | disposition home or self-care (01) ==
LOC: OPBI 08:01
PROVIDERS: PCP Internal Medicine; Visit Provider Nurse Practitioner Family
DX: Z12.31 Encounter for screening mammogram for malignant neoplasm of breast (principal)
CPT/HCPCS: 77063; 77067

== ENCOUNTER 2022-05-28 08:03 | Day surgery (SDC) | payer BC, SELFPAY ==
[2022-05-28] VITALS (7 sets, daily range): BP systolic 93–117; BP diastolic 69–77; PULSE 66–85; RESP 14–16; TEMP 36.4–37.3; O2SAT 96–98; BMI 25.1
--- NOTE | 2022-05-28 08:57 | HP.PCM_ITS ---
HPI - General HPI Narrative MARLEN LARA, is a 61 F who presents for surveillance colonoscopy. Her last colonoscopy was 6 years ago. She is advised to get colonoscopies every 5 years due to colon cancer in her mother under age 60. She denies any blood in the stool or abdominal pain. [facility] Medical History Anxiety Flu vaccine need Heart murmur Hypothyroidism Non-smoker Osteoporosis Seasonal allergies Trigeminal neuralgia Home Medications calcium carbonate 600 mg calcium (1,500 mg) tablet (Calcium) 1,200 mg PO QDAY 12/12/17 [History Last Taken Unknown] cholecalciferol (vitamin D3) 50 mcg (2,000 unit) capsule 2,000 unit PO QDAY 12/12/17 [History Last Taken Unknown] citalopram 20 mg tablet (Celexa) 20 mg PO DAILY #90 tabs 09/01/21 [Rx Last Taken Unknown] levothyroxine 112 mcg tablet 112 mcg PO QDAY #90 tabs 09/01/21 [Rx Last Taken Unknown] denosumab 60 mg/mL subcutaneous syringe (Prolia) 60 mg subcut [id number] #1 mL 05/17/22 [Rx Last Taken Unknown] Allergy/AdvReac Type Severity Reaction Status Date / Time gabapentin [From Neurontin] Allergy Severe Hives Verified 05/28/22 08:25 Family History Mother Colon cancer Father Hypertension CVA (cerebral vascular accident) Brother Hypertension Sister Thyroid disorder Surgical History bunion removal H/O thyroidectomy History of colonoscopy History of hysterectomy History of tubal ligation Social History Smoking Status: Never smoker alcohol intake: never substance use type: does not use caffeine: Yes what type of physical activity do you participate in: walking frequency: 1-2 times per week seatbelt use: always do you feel safe at home: Yes additional social history: -Rupert- 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[place] Patient is Executive to President of [employer] Past Medical/Surgical History Planned Operation Planned Operative Procedure/s: CSCOPE S.O.S: No Previous Hospitalizations/Surgeries HX Hospitalizations: No HX of Surgeries: R FOOT SURGERY BRAIN SURGERY FOR NERVE CLIPPING (TRIGEMINAL NEURALGIA) 1999 LEEP PROCEDURE THYROIDECTOMY 2012 L BUNIONECTOMY Any Problems With Anesthesia: No You/Your Family Experience Fever (Hyperthermia) With Anes: No Cholinesterase deficiency: No Cardiovascular Hx Chest Pain within Last 2 months: No Hx of Irregular Heartbeat and/or Afib: No Hx Heart Attack: No Hx Congestive Heart Failure: No Hx Rheumatic Fever: No Hx Hypertension: No Hx Internal Defibrillator: No Hx Pacemaker: No Hx Cardiac Catheterization: No Hx Cardiac Surgery/Stents/Etc.: No Hx Stress Test: No Hx Pain in Legs when Walking/Leg Cramps: No Respiratory Chronic Cough: No HX of Shortness of Breath: No Hoarseness: No Hx Chronic Obstructive Pulmonary Disease (COPD): No Hx Asthma: No Hx Emphysema: No Hx Sleep Apnea: No Hx Respiratory Tract Infection/Cold (presently): No Do You Snore Loudly (louder than talking or can be heard): No Do You Often Feel Tired/ Fatigued/ Sleepy Dring Daytime?: No Has Anyone Observed You Stop Breathing During Sleep?: No Result (for STOP score): Negative Hx Smoking: No Smoking Status: Never smoker Gastrointestinal Hx Gastroesophageal Reflux: No Hx Gastrointestinal Disorders: No Hx Gastrointestinal Bleed: No Hx Ulcer: No Hx Hiatal Hernia: No Difficulty Chewing/Swallowing: No Special diet followed at home: No Hx Unplanned Weight Loss of 20#: No HX Unplanned Weight Gain of 20#: No Neurological Hx Seizures: No HX Syncope/Blackout Spells/Unconsciousness: No Hx Transient Ischemic Attacks (TIA): No Hx Multiple Sclerosis: No Hx Parkinson's Disease: No Hx Head/Neck Injury: No Hx Headaches: No Hx Back Injury/Pain: No Recent Onset of Speech Difficulty: No Restless Legs: No Does patient have nerve stimulator: No Blood Disorder Hx Leukemia: No Bleeding Tendencies: No Hx Deep Vein Thrombosis: No Hx High Cholesterol: No Blood Transmitted Disease: No Hx Hepatitis: No Hx Cirrhosis: No Hx Anemia: No Hx Blood Disorders: No Reproduction : No Is Patient Lactating: No Hx Hysterectomy: No Hx Tubal Ligation: Yes Are You Post Menopause: Yes Genitourinary Hx Renal Disease: No Musculoskeletal Hx Arthritis: No Hx Rheumatoid Arthritis: No Hx Gout: No Recent Onset of an Orthopedic Problem: No Endocrine Hx Diabetes: No Thyroid Disease: Yes (ON MEDS) Hx Steroid Therapy: No Psycho/Social Hx Substance Use: No Hx Alcohol Use: No Hx Anxiety: Yes Hx Depression: No Mental Illness: No Hx Dementia: No Miscellaneous Hx Cancer: No Recent Exposure to Contagious Disease: No Hx of C-Diff: No Any Loose Teeth: No Allergies gabapentin [From Neurontin] Allergy (Severe, Verified 05/28/22 08:25) Hives Discharge Is Pt Admitted From a Correction, or a Nursing Home: No After D/C, Where Do you Plan to Go: Return Home Vital Signs Vital Signs Vital Signs: 05/28/22 08:22 05/28/22 08:22 Temperature 98.4 F Temperature Source Temporal Pulse Rate 85 Respiratory Rate 16 Respiratory Pattern Normal Blood Pressure 117/77 Blood Pressure Mean 90 Blood Pressure Source Monitor Blood Pressure Position Semi-Fowlers Blood Pressure Location Right Arm Pulse Ox 98 Oxygen Delivery Method Room Air Weight Weight: 165 lb 5.547 oz Body Mass Index (BMI) 25.1 Physical Exam Const alert and oriented x3 HEENT normocephalic Eyes PERRL Resp normal respiratory effort and normal air movement Cardio regular rate and regular rhythm GI soft to palpation, non-tender and non-distended Extremity normal to inspection Assessment & Plan Assessment/Plan (1) Encounter for screening for malignant neoplasm of colon: PLAN: I explained endoscopy in detail to the patient. I explained the risks including but not limited to stroke or heart attack with anesthesia, perforation of the GI tract, bleeding, infection. I explained that any of these could necessitate further emergency surgery. The patient understands and all questions were answered sufficiently. The patient wishes to proceed with procedure. Marco Henriquez MD Pager: [facility] [address] [place] [address], [address] [place] [address] Office: Surgery Risks - Colonoscopy Risks Include but are not Limited To: Risks include but are not limited to: Bleeding, perforation requiring further surgery, inability to complete colonoscopy requiring barium enema.
--- NOTE | 2022-05-28 09:24 | OP.COLON_ITS ---
Patient Name: Leanna Seals Procedure Date: 05/28/2022 8:58 AM Date of : 1960 Age: 61 Procedure: Colonoscopy Indications: Screening in patient at increased risk: Colorectal cancer in mother before age 60 Providers: Marco Henriquez MD Referring MD: Ko Eden MD Medicines: Monitored Anesthesia Care Patient Profile: This is a 61 year old female. Refer to note in patient chart for documentation of history and physical. Last Colonoscopy: 5 years ago. Complications: No immediate complications. Procedure: Pre-Anesthesia Assessment: - Prior to the procedure, a History and Physical was performed, and patient medications and allergies were reviewed. The patient's tolerance of previous anesthesia was also reviewed. The risks and benefits of the procedure and the sedation options and risks were discussed with the patient. All questions were answered, and informed consent was obtained. Prior Anticoagulants: The patient has taken no previous anticoagulant or antiplatelet agents. After reviewing the risks and benefits, the patient was deemed in satisfactory condition to undergo the procedure. After I obtained informed consent, the scope was passed under direct vision. Throughout the procedure, the patient's blood pressure, pulse, and oxygen saturations were monitored continuously. The colonoscope was introduced through the anus and advanced to the cecum, identified by appendiceal orifice and ileocecal valve. The colonoscopy was performed without difficulty. The patient tolerated the procedure well. The quality of the bowel preparation was good. Scope In: 9:08:46 AM Scope Withdrawal Time 0 hours 4 minutes 45 seconds Scope Out: 9:21:12 AM Total Procedure Duration Time 0 hours 12 minutes 26 seconds Findings: The entire examined colon appeared normal on direct and retroflexion views. Impression: - The entire examined colon is normal on direct and retroflexion views. - No specimens collected. Recommendation: - Discharge patient to home. - Resume previous diet. - Continue present medications. - Repeat colonoscopy in 5 years for surveillance. Procedure Code(s): --- Professional --- 56072, Colonoscopy, flexible; diagnostic, including collection of specimen(s) by brushing or washing, when performed (separate procedure) Diagnosis Code(s): --- Professional --- Z80.0, Family history of malignant neoplasm of digestive organs CPT copyright 2017 [employer]. All rights reserved. The codes documented in this report are preliminary and upon mattress filler review may be revised to meet current compliance requirements. Marco Henriquez MD 05/28/2022 9:23:57 AM This report has been signed electronically. Number of Addenda: 0 Note Initiated On: 05/28/2022 8:58 AM
--- NOTE | 2022-05-28 09:25 | OP.CCLET_ITS ---
05/28/2022 Ko Eden MD [address] [place] [address] [place] [address] Re : Colonoscopy procedure for Leanna Bozena Dear Dr. Eden This procedure was performed on Saturday, May 28, 2022. My impressions and recommendations are as follows: Impressions : - The entire examined colon is normal on direct and retroflexion views. - No specimens collected. Recommendations : - Discharge patient to home. - Resume previous diet. - Continue present medications. - Repeat colonoscopy in 5 years for surveillance. My findings are described in the full procedure note, which is enclosed. If I can be of further assistance, please feel free to contact me at Doctor phone number(s): , Work: . Sincerely, Marco Henriquez MD 05/28/2022 9:23:57 AM This report has been signed electronically.
== END 2022-05-28 10:27 | disposition home or self-care (01) ==
LOC: EN 08:03 → AC 08:04
PROVIDERS: PCP Internal Medicine; Referring Provider Internal Medicine; Visit Provider Surgery
PROC: 0DJD8ZZ Inspection of Lower Intestinal Tract, Via Natural or Artificial Opening Endoscopic (ICD-10-PCS; CPT 45378; principal; 2022-05-28 08:55)
DX: Z12.11 Encounter for screening for malignant neoplasm of colon (principal); E03.9 Hypothyroidism, unspecified; M81.0 Age-related osteoporosis without current pathological fracture; Z78.0 Asymptomatic menopausal state; Z79.890 Hormone replacement therapy; Z79.899 Other long term (current) drug therapy; Z80.0 Family history of malignant neoplasm of digestive organs
CPT/HCPCS: 45378; J7120; J2405

== ENCOUNTER → 2022-09-17 | Outpatient (CLI) | payer BC, SELFPAY ==
[2022-09-17 12:28] LABS: Absolute Lymphocyte Count 1.66 X10^3/uL (0.83-4.51); Absolute Neutrophil Count 3.2 X10^3/uL (2.0-7.7); Basophil# 0.04 X10^3/uL; Basophil% 0.7 % (0-1); Eosinophils% 1.8 % (0-5); Hematocrit 43.8 % (37-47); Hemoglobin 14.1 g/dL (12.0-15.0); Lymphocyte # 1.66 X10^3/ul (0.83-4.51); Lymphocyte % 30.3 % (19-41); Mean Corp Hgb Conc 32.2 g/dL (32-36); Mean Corpuscular Hgb 30.7 pg (27.0-32.0); Mean Corpuscular Volume 95.2 fL (81-99); Mean Platelet Vol. 9.7 fl (6.2-12.0); Monocyte# 0.49 X10^3/uL; Monocyte% 8.9 % (0-10); NRBC Flagged by Analyzer 0 % (0-5); Neutrophil # 3.18 X10^3/uL (2.7-7.7); Neutrophil % 58.1 % (47-70); Platelet Count 327 K/mm3 (150-450); White Blood Count 5.5 K/mm3 (4.4-11.0)
[2022-09-17 12:57] LABS: AST(SGOT) 26 U/L (15-37); Alanine Aminotransfer ALT/SGPT 38 U/L (13-56); Albumin, Serum 3.6 g/dL (3.2-5.0); Alkaline Phosphatase 71 U/L (45-117); Anion Gap 6 (5-15); BUN 20 mg/dL (7-18); Calcium,Total 9.6 mg/dL (8.5-10.1); Chloride 106 mmol/L (98-107); Cholesterol 208 mg/dL (200); Creatinine, Serum 0.87 mg/dL (0.55-1.02); EST Glomerular Filtration Rate 71 mL/min (>60); Est Glom Filt Rate - Afr Amer 85 mL/min (>60); Globulin 3.7 g/dL (2.2-4.2); Glucose 87 mg/dL (74-106); High Density Lipoprotein 67 mg/dL; Potassium 4.4 mmol/L (3.5-5.1); Protein, Total 7.3 g/dL (6.4-8.2); Sodium Level 138 mmol/L (136-145); Triglycerides 66 mg/dL; Very Low Density Lipoprotein 13 mg/dL (5-40)
== END | disposition home or self-care (01) ==
LOC: BIMLAB 08:45
PROVIDERS: PCP Internal Medicine; Referring Provider Nurse Practitioner Family; Visit Provider Nurse Practitioner Family
DX: F41.8 Other specified anxiety disorders (principal); E03.9 Hypothyroidism, unspecified; M81.0 Age-related osteoporosis without current pathological fracture
CPT/HCPCS: 36415; 80053; 80061; 84443; 85025

== ENCOUNTER → 2023-03-25 | Outpatient (CLI) | payer BC, SELFPAY ==
[2023-03-25 12:19] LABS: Absolute Lymphocyte Count 1.98 X10^3/uL (0.83-4.51); Absolute Neutrophil Count 4.1 X10^3/uL (2.0-7.7); Basophil# 0.03 X10^3/uL; Basophil% 0.4 % (0-1); Eosinophils% 1.5 % (0-5); Hematocrit 44.4 % (37-47); Lymphocyte # 1.98 X10^3/ul (0.83-4.51); Lymphocyte % 29.3 % (19-41); Mean Corp Hgb Conc 31.5 g/dL (32-36); Mean Corpuscular Hgb 29.9 pg (27.0-32.0); Mean Corpuscular Volume 94.7 fL (81-99); Mean Platelet Vol. 9.5 fl (6.2-12.0); Monocyte# 0.57 X10^3/uL; Monocyte% 8.4 % (0-10); NRBC Flagged by Analyzer 0 % (0-5); Neutrophil # 4.06 X10^3/uL (2.7-7.7); Neutrophil % 60.1 % (47-70); Platelet Count 397 K/mm3 (150-450); RBC Distribution Width CV 12.5 % (11.6-14.6); RBC Distribution Width SD 43.3 fl (35.1-43.9); Red Blood Count 4.69 M/mm3 (4.2-5.4); White Blood Count 6.8 K/mm3 (4.4-11.0)
[2023-03-25 12:53] LABS: ALB/GLOB Ratio 1.1 RATIO (0.9-2.4); AST(SGOT) 21 U/L (15-37); Alanine Aminotransfer ALT/SGPT 35 U/L (13-56); Albumin, Serum 3.7 g/dL (3.2-5.0); Alkaline Phosphatase 74 U/L (45-117); Anion Gap 3 (5-15); BUN 17 mg/dL (7-18); BUN/Creat Ratio 20.2 RATIO (10-20); Calcium,Total 9.1 mg/dL (8.5-10.1); Chloride 107 mmol/L (98-107); Creatinine, Serum 0.84 mg/dL (0.55-1.02); EST Glomerular Filtration Rate 73 mL/min (>60); Est Glom Filt Rate - Afr Amer 89 mL/min (>60); Globulin 3.5 g/dL (2.2-4.2); Glucose 87 mg/dL (74-106); Potassium 4.7 mmol/L (3.5-5.1); Protein, Total 7.2 g/dL (6.4-8.2); Sodium Level 139 mmol/L (136-145); Thyroid Stim Hormone (TSH) 0.34 uIU/mL (0.358-3.74)
== END | disposition home or self-care (01) ==
LOC: BIMLAB 08:34
PROVIDERS: PCP Internal Medicine; Referring Provider Internal Medicine; Visit Provider Internal Medicine
DX: M81.0 Age-related osteoporosis without current pathological fracture (principal); E03.9 Hypothyroidism, unspecified
CPT/HCPCS: 36415; 80053; 84443; 85025

== ENCOUNTER → 2023-04-28 | Outpatient (CLI) | payer BC, SELFPAY ==
--- NOTE | 2023-04-28 15:18 | BD_ITS ---
STUDY: DUAL ENERGY X-RAY ABSORPTIOMETRY / DXA REASON FOR EXAM: Female, 62 years old. Osteoporosis TECHNIQUE: Bone Mineral Density (BMD) measurements of lumbar spine and bilateral hips were obtained. COMPARISON: Comparison is made with prior study March 17, 2021. FINDINGS: Lumbar Spine (L1-L4): g/cm2 (0.896) / T-score (-1.4) / Z-score (0.1) Findings are suggestive of osteopenia with a low fracture risk. Left Femur Total: g/cm2 (0.785) / T-score (-1.3) / Z-score (-0.3) Left Femoral Neck: g/cm2 (0.645) / T-score (-1.8) / Z-score (-0.5) Right Femur Total: g/cm2 (0.819) / T-score (-1.0) / Z-score (0.0) Right Femoral Neck: g/cm2 (0.672) / T-score (-1.6) / Z-score (-0.3) The T-Scores on the most recent prior examination were: Lumbar Spine (L1-L4): There has been improvement of bone density since the previous examination. Left Femur Total: which represents an improvement of 2%. Right Femur Total: which represents an improvement of 3.3%. BD/Dexa Bone Density Study IMPRESSION: The patient is considered osteopenic as outlined below according to World [place] Organization (WHO) criteria with a moderate fracture risk. There has been improvement of bone density since the previous examination. Reference Information: The T-score is the number of standard deviations above or below the standard which is normal for young adults at their peak bone mineral density. The World Health Organization (WHO) interprets the T-scores as follows: Above -1 Normal bone density Between -1 and -2.5 Osteopenia Equal to / or below -2.5 Osteoporosis As a practical clinical guideline, osteopenia may be graded as follows: Mild -1 through -1.5 Moderate -1.6 through -2.0 Severe -2.1 through -2.4 The Z-score is the number of standard deviations above or below age-matched controls. A Z-score of less than -1.5 would be considered abnormal. References: 1. NIH Osteoporosis and Related Bone Diseases www osteo.org 2. International Society for Clinical Densitometry www iscd.org 3. National Osteoporosis Foundation www nof.org Electronically Signed: Fly Bingham MD at 14:22 EDT ,
== END | disposition home or self-care (01) ==
LOC: OPBD 15:08
PROVIDERS: PCP Internal Medicine; Referring Provider Internal Medicine; Visit Provider Internal Medicine
DX: M81.0 Age-related osteoporosis without current pathological fracture (principal)
CPT/HCPCS: 77080

== ENCOUNTER → 2023-06-01 | Outpatient (CLI) | payer BC, SELFPAY ==
[2023-06-01 12:21] LABS: Absolute Lymphocyte Count 0.68 X10^3/uL (0.83-4.51); Basophil# 0.02 X10^3/uL; Basophil% 0.2 % (0-1); Eosinophil# 0.01 X10^3/uL; Eosinophils% 0.1 % (0-5); Hematocrit 45.6 % (37-47); Hemoglobin 14.3 g/dL (12.0-15.0); Lymphocyte # 0.68 X10^3/ul (0.83-4.51); Lymphocyte % 6.7 % (19-41); Mean Corp Hgb Conc 31.4 g/dL (32-36); Mean Corpuscular Hgb 29.5 pg (27.0-32.0); Mean Platelet Vol. 9.5 fl (6.2-12.0); Monocyte# 0.43 X10^3/uL; Monocyte% 4.2 % (0-10); NRBC Flagged by Analyzer 0 % (0-5); Neutrophil # 9.02 X10^3/uL (2.7-7.7); Neutrophil % 88.4 % (47-70); Platelet Count 326 K/mm3 (150-450); RBC Distribution Width CV 13.1 % (11.6-14.6); RBC Distribution Width SD 45.1 fl (35.1-43.9); Red Blood Count 4.85 M/mm3 (4.2-5.4); White Blood Count 10.2 K/mm3 (4.4-11.0)
[2023-06-01 12:57] LABS: Vitamin D,25 Hydroxy 66.7 ng/mL
[2023-06-01 13:12] LABS: ALB/GLOB Ratio 0.9 RATIO (0.9-2.4); AST(SGOT) 25 U/L (15-37); Alanine Aminotransfer ALT/SGPT 33 U/L (13-56); Albumin, Serum 3.6 g/dL (3.2-5.0); Alkaline Phosphatase 87 U/L (45-117); Anion Gap 6 (5-15); BUN 11 mg/dL (7-18); BUN/Creat Ratio 12.5 RATIO (10-20); Calcium,Total 8.9 mg/dL (8.5-10.1); Chloride 106 mmol/L (98-107); Creatinine, Serum 0.88 mg/dL (0.55-1.02); EST Glomerular Filtration Rate 69 mL/min (>60); Est Glom Filt Rate - Afr Amer 84 mL/min (>60); Globulin 3.9 g/dL (2.2-4.2); Glucose 104 mg/dL (74-106); Potassium 4.7 mmol/L (3.5-5.1); Protein, Total 7.5 g/dL (6.4-8.2); Sodium Level 137 mmol/L (136-145); Thyroid Stim Hormone (TSH) 0.08 uIU/mL (0.358-3.74)
== END | disposition home or self-care (01) ==
LOC: BIMLAB 10:03
PROVIDERS: PCP Internal Medicine; Referring Provider Internal Medicine; Visit Provider Internal Medicine
DX: E03.9 Hypothyroidism, unspecified (principal); M81.0 Age-related osteoporosis without current pathological fracture
CPT/HCPCS: 36415; 80053; 82306; 84443; 85025

== ENCOUNTER → 2023-07-25 | Outpatient (CLI) | payer BC, SELFPAY ==
--- OUTSIDE RECORDS SUMMARY | 2023-07-25 15:32 | XMS RPT_ITS | CCD ---
Author Name Unknown Address [address] [place] [address] Organization [facility] Results Test Name Value Interpretation Reference Range Facil ity Summary Purpose Family History No Family History Records Found Advance Directives No Advanced Directives Records Found Additional Source Comments INFORMATION SOURCE (unrecogn ized section and content) FOR RECORDS PERTAINING TO PATIENTS WHO ARE OR HAVE BEEN ENROLLED IN A CHEMICAL DEPENDENCY/SUBSTANCEABUSE PROGRAM, SOME INFORMATION MAY BE OMITTED. This clinical summary was aggregated from multiple sources. Caution should be exercised in using it in the provision of clinical care. This summary normalizes information from multiple sources, and as a consequence, information in this document may materially change the coding, format and clinical context of patient data. In addition, data may be omitted in some cases. CLINICAL DECISIONS SHOULD BE BASED ON THE PRIMARY CLINICAL RECORDS. [employer] provides no warranty or guarantee of the accuracy or completeness of information in this document.
[2023-07-25 17:06] LABS: Thyroid Stim Hormone (TSH) 0.75 uIU/mL (0.358-3.74)
== END | disposition home or self-care (01) ==
PROVIDERS: PCP Internal Medicine; Referring Provider Internal Medicine; Visit Provider Internal Medicine
DX: E03.9 Hypothyroidism, unspecified (principal)
CPT/HCPCS: 36415; 84443

== ENCOUNTER → 2024-01-02 | Outpatient (CLI) | payer BC, SELFPAY ==
--- NOTE | 2024-01-02 15:33 | RAD_ITS ---
ACR Level 3 findings have been noted. An addendum which confirms receipt of the report will follow. INDICATION: Right Great Toe Pain EXAMINATION/TECHNIQUE: X-RAY - RIGHT FOOT XR Toes Min 2 Views 3 VIEWS COMPARISON: None. FINDINGS: BONES: There is a fracture at the base of the proximal phalanx great toe, extends to the articular surface. No significant displacement. JOINTS: No dislocation. SOFT TISSUES: Soft tissue swelling. RAD/Toe(s) Min 2 Views IMPRESSION: Acute nondisplaced intra-articular fracture at the base of the proximal phalanx great toe. Electronically Signed: Mally Cardona MD at 6:24 EDT ,
== END | disposition home or self-care (01) ==
PROVIDERS: PCP Internal Medicine; Referring Provider Internal Medicine; Visit Provider Internal Medicine
DX: M79.676 Pain in unspecified toe(s) (principal)
CPT/HCPCS: 73660

== ENCOUNTER → 2024-05-17 | Outpatient (CLI) | payer BC, SELFPAY ==
--- NOTE | 2024-05-17 08:12 | BI_ITS ---
MAMMOGRAPHY - BILATERAL SCREENING REASON FOR EXAM: Female, 63 years old. Routine annual screening examination. PERTINENT HISTORY: Non-contributory. TECHNIQUE: Digital bilateral breast nas (3D mammographic acquisition) in the CC and MLO projections. 2-D mediolateral oblique (MLO) and craniocaudad (CC) views of both breasts were obtained. CAD: Full Field Digital Mammography with Computer Added Detection was performed. COMPARISON: Comparison is made with prior study November 12, 2021 and November 11, 2020. FINDINGS: Breast Composition: The breasts are heterogeneously dense, which may obscure small masses. There are no dominant masses or suspicious calcifications. No other significant abnormalities are identified. There has been no significant change since the prior study. BI/SCRN MAMM (CAD)W/NAS BILAT IMPRESSION: Stable bilateral screening mammogram. Yearly follow-up mammogram recommended. (A) ASSESSMENT CATEGORY: BIRADS Category 1: Negative. A letter regarding these results will be sent to the patient by the facility within 30 days. Approximately 10% of breast cancers are not detected by mammography. A normal mammogram should not delay biopsy of a clinically suspicious abnormality. [id number] Electronically Signed: Fly Bingham MD at 8:58 EST ,
== END | disposition home or self-care (01) ==
LOC: OPBI 08:12
PROVIDERS: PCP Internal Medicine; Referring Provider Internal Medicine; Visit Provider Internal Medicine
DX: Z12.31 Encounter for screening mammogram for malignant neoplasm of breast (principal)
CPT/HCPCS: 77063; 77067

== ENCOUNTER → 2024-09-07 | Outpatient (CLI) | payer BC, SELFPAY ==
[2024-09-07 12:39] LABS: Absolute Lymphocyte Count 1.74 X10^3/uL (0.83-4.51); Absolute Neutrophil Count 2.4 X10^3/uL (2.0-7.7); Basophil# 0.03 X10^3/uL; Basophil% 0.6 % (0-1); Eosinophil# 0.12 X10^3/uL; Eosinophils% 2.5 % (0-5); Hematocrit 43.3 % (37-47); Lymphocyte # 1.74 X10^3/ul (0.83-4.51); Lymphocyte % 36.6 % (19-41); Mean Corp Hgb Conc 32.3 g/dL (32-36); Mean Corpuscular Hgb 30.8 pg (27.0-32.0); Mean Corpuscular Volume 95.4 fL (81-99); Mean Platelet Vol. 9.9 fl (6.2-12.0); Monocyte# 0.48 X10^3/uL; Monocyte% 10.1 % (0-10); NRBC Flagged by Analyzer 0 % (0-5); Neutrophil # 2.38 X10^3/uL (2.7-7.7); Platelet Count 361 K/mm3 (150-450); RBC Distribution Width CV 12.6 % (11.6-14.6); RBC Distribution Width SD 43.8 fl (35.1-43.9); Red Blood Count 4.54 M/mm3 (4.2-5.4); White Blood Count 4.8 K/mm3 (4.4-11.0)
[2024-09-07 14:04] LABS: ALB/GLOB Ratio 1.5 RATIO (0.9-2.4); AST(SGOT) 29 U/L (<=31); Alanine Aminotransfer ALT/SGPT 32 U/L (<=34); Albumin, Serum 4.2 g/dL (3.4-4.8); Alkaline Phosphatase 92 U/L (35-104); Anion Gap 12 (5-15); BUN 18 mg/dL (4-19); BUN/Creat Ratio 18.2 RATIO (10-20); Calcium,Total 10.3 mg/dL (7.6-11.0); Carbon Dioxide 23.4 mmol/L (21.0-32.0); Chloride 105 mmol/L (98-108); Creatinine, Serum 1.01 mg/dL (0.70-1.20); EST Glomerular Filtration Rate 63 (>60); Globulin 2.9 g/dL (2.2-4.2); Glucose 97 mg/dL (70-99); Potassium 4.9 mmol/L (3.3-5.1); Sodium Level 141 mmol/L (133-145); Total Bilirubin 0.29 mg/dL (0.00-1.30)
[2024-09-07 14:22] LABS: Cholesterol 204 mg/dL (<=200); High Density Lipoprotein 63 mg/dL; Low Density Lipoprotein Calc. 124 mg/dL; Triglycerides 83 mg/dL; Very Low Density Lipoprotein 17 mg/dL (5-40); cholesterol:hdl ratio screen 3.24
[2024-09-07 14:23] LABS: Thyroid Stim Hormone (TSH) 0.669 uIU/mL (0.300-4.200); Vitamin D,25 Hydroxy 88.3 ng/mL (30-100)
== END | disposition home or self-care (01) ==
LOC: BIMLAB 08:54
PROVIDERS: PCP Internal Medicine; Referring Provider Internal Medicine; Visit Provider Internal Medicine
DX: Z00.00 Encounter for general adult medical examination without abnormal findings (principal); E03.9 Hypothyroidism, unspecified; M81.0 Age-related osteoporosis without current pathological fracture
CPT/HCPCS: 36415; 80053; 80061; 82306; 84443; 85025

== ENCOUNTER → 2025-03-28 | Outpatient (CLI) | payer BC, SELFPAY ==
[2025-03-28 13:01] LABS: Hematocrit 43.9 % (37-47); Hemoglobin 14.3 g/dL (12.0-15.0); Immature Granulocytes Count 0.020 X10^3/uL (0.0-0.0); Mean Corp Hgb Conc 32.6 g/dL (32-36); Mean Corpuscular Volume 94.0 fL (81-99); Mean Platelet Vol. 9.2 fl (6.2-12.0); NRBC Flagged by Analyzer 0 % (0-5); Platelet Count 357 K/mm3 (150-450); RBC Distribution Width CV 13.0 % (11.6-14.6); RBC Distribution Width SD 44.8 fl (35.1-43.9); Red Blood Count 4.67 M/mm3 (4.2-5.4); White Blood Count 7.4 K/mm3 (4.4-11.0)
[2025-03-28 14:03] LABS: AST(SGOT) 27 U/L (<=31); Alanine Aminotransfer ALT/SGPT 29 U/L (<=34); Albumin, Serum 4.3 g/dL (3.4-4.8); Alkaline Phosphatase 90 U/L (35-104); Anion Gap 11 (5-15); BUN 20 mg/dL (4-19); BUN/Creat Ratio 25.5 RATIO (10-20); Calcium,Total 9.5 mg/dL (7.6-11.0); Carbon Dioxide 24.3 mmol/L (21.0-32.0); Chloride 106 mmol/L (98-108); Free T3 3.2 pg/mL (2.18-3.98); Globulin 2.8 g/dL (2.2-4.2); Glucose 86 mg/dL (70-99); Potassium 4.1 mmol/L (3.3-5.1)
== END | disposition home or self-care (01) ==
LOC: LAB 12:15
PROVIDERS: PCP Internal Medicine; Referring Provider Nurse Practitioner Family; Visit Provider Nurse Practitioner Family
DX: E03.9 Hypothyroidism, unspecified (principal)
CPT/HCPCS: 36415; 80053; 84439; 84443; 84481; 85025

== ENCOUNTER → 2025-04-16 | Outpatient (CLI) | payer BC, SELFPAY | END | disposition home or self-care (01) | LOC: LABSPEC 16:20 | PROVIDERS: PCP Internal Medicine; Referring Provider Otolaryngology Otolaryngology/Facial Plastic Surgery; Visit Provider Otolaryngology Otolaryngology/Facial Plastic Surgery | DX: J32.9 Chronic sinusitis, unspecified (principal) | CPT/HCPCS: 87070; 87205 ==

== ENCOUNTER → 2025-06-05 | Outpatient (CLI) | payer BC, SELFPAY ==
--- NOTE | 2025-06-05 07:45 | BI_ITS ---
EXAM: SCRN MAMM (CAD)W/NAS BILAT DATE: 06/05/2025 CLINICAL HISTORY: F, Age 65 y/o , BREAST CANCER SCREENING No family history TECHNIQUE: Procedure Code: [id number] Modality: MG Procedure: SCRN MAMM (CAD)W/NAS BILAT COMPARISON: Prior exam(s) dated prior study dated May 17, 2024.. FINDINGS: TISSUE DENSITY: The breasts are heterogeneously dense, which may obscure small masses. Bilateral Breast Mammographic Findings: No significant masses, calcifications or other abnormalities are identified. No suspicious masses, areas of developing architectural distortion, or suspicious calcifications. There has been no significant interval change. BI/SCRN MAMM (CAD)W/NAS BILAT IMPRESSION: Stable bilateral screening mammogram. OVERALL FINAL ASSESSMENT BI-RADS 1: NEGATIVE. RECOMMENDATION: Routine annual follow-up in 1 Year Additional Recommendation none A letter with findings and recommendations will be mailed to the patient. Reading Location: [place] [id number]
--- OUTSIDE RECORDS SUMMARY | 2025-06-05 07:45 | XMS RPT_ITS | CCD ---
Author Organization [facility] Care Team Providers Care Tube Former Operator Name Role Phone Dr. Ko Eden Primary Care Provider [phone] Dr. Ko Eden Referring Provider [phone] Oralia REPULPING SUPERVISOR, JOSE-Michelle Soriano Attending Provider [phone] Dr. Ko Eden Primary Care Provider [phone] Dr. Ko Eden Referring Provider [phone] Dr. Marco Henriquez Attending Provider [phone] Dr. Marco Henriquez Other Provider Dr. Ko Eden Attending Provider [phone] JULIEN Barton NP Attending Provider [phone] Dr. Ko Eden Primary Care Provider [phone] Dr. Ko Eden Attending Provider [phone] Dr. Ko Eden Referring Provider [phone] Dr. Ko Eden Primary Care Provider [phone] Dr. Ko Eden Attending Provider [phone] Dr. Ko Eden Referring Provider [phone] Dr. Ko Eden Primary Care Provider [phone] [phone]) Dr. Ko Eden Attending Provider [phone] Dr. Ko Eden Referring Provider [phone] Karey BUTLER, Dr. Connell Primary Care Provider Karey BUTLER, Dr. Connell Attending Provider [phone] Karey BUTLER, Dr. Connell Referring Provider [phone] Clotilde REPULPING SUPERVISOR-CMary Attending Physician Karey BUTLER, Dr. Connell Primary Care Physician Karey BUTLER, Dr. Connell Referring Provider [phone] Ilir Adams Attending Unavailable Ilir Adams Referring Unavailable Oleghe, Efewongbe Primary Care Unavailable Mary Mabry Attending Unavailable UngererMary Referring Unavailable Oleghe, Efewongbe Primary Care Unavailable Oleghe, Efewongbe Referring Unavailable Ungerer, Mary Attending Unavailable Oleghe, Efewongbe Primary Care Unavailable Oleghe, Efewongbe Referring Unavailable Oleghe, Efewongbe Primary Care Unavailable NURSE, BIM Attending Unavailable Oleghe, Efewongbe Referring Unavailable Oleghe, Efewongbe Primary Care Unavailable Oleghe, Efewongbe Attending Unavailable Oleghe, Efewongbe Referring Unavailable Oleghe, Efewongbe Primary Care Unavailable NURSE, BIM Attending Unavailable Oleghe, Efewongbe Referring Unavailable Oleghe, Efewongbe Primary Care Unavailable Oleghe, Efewongbe Attending Unavailable Oleghe, Efewongbe Referring Unavailable Oleghe, Efewongbe Primary Care Unavailable Oleghe, Efewongbe Attending Unavailable Allergies Allergy Classification Reported Allergen(s) Allergy Type Date of Onset Reaction(s) Facility (7 sources) gabapentin Drug Allergy 09-01-2021 [facility] (1 source) gabapentin Drug Allergy 03-28-2025 [facility] Repository Medications Current Medications Medication Drug Class(es) Dates Sig (Normalized) Sig (Original) calcium carbonate 1500 mg oral tablet (7 sources) Start: 12-12-2017 Calcium Carbonate (Calcium 600) 600 mg calcium (1,500 mg) tablet Active 1200 mg PO daily December 12, 2017 12:00am Complies with drug therapy cholecalciferol 0.05 mg oral capsule (7 sources) Vitamin D Start: 12-12-2017 take 1 capsule by mouth once daily Cholecalciferol (Vitamin D3) 2,000 unit capsule Active 2000 U PO daily December 12, 2017 12:00am Complies with drug therapy estradiol 0.1 mg/ml vaginal cream (8 sources) Estrogen Start: 09-12-2020 Estradiol (Estrace) 0.01 % (0.1 mg/gram) cream Active 0 VAGINAL .COMPLEX 42.5 September 12, 2020 11:44am pea sized amount VAGINAL twice a week; Start: 03-01-2018 End: 09-12-2020 Estradiol (Estrace) 0.01 % ( 0.1 mg/gram) cream Discontinued 0 VAGINAL .COMPLEX 42.5 2 March 01, 2018 12:00am September 12, 2020 11:44am pea sized amount VAGINAL every other day X 4 weeks then twice a week; Start: 03-01-2018 End: 09-12-2020 Estradiol (Estrace) 0.01 % ( 0.1 mg/gram) cream Discontinued 0 VAGINAL .COMPLEX 42.5 February 28, 2018 11:00pm September 12, 2020 10:44am pea sized amount VAGINAL every other day X 4 weeks then twice a week; levothyroxine sodium 0.112 mg oral tablet (20 sources) l-Thyroxine Start: 2023 End: 10-04-2024 take 1 tablet by mouth once daily in the morning Levothyroxine 112 mcg tablet Active 112 ug PO EVERY MORNING 90 October 04, 2024 7:43pm Complies with drug therapy Start: 09-17-2022 End: 2023 take 1 tablet by mouth once daily in the morning Levothyroxine 125 mcg tablet Discontinued 0 .ROUTE .COMPLEX 60 0 May 09, 2023 11:04am 2023 2:19pm take 1 tablet by mouth every morning ON AN EMPTY STOMACH Start: 08-26-2020 End: 09-17-2022 take 1 tablet by mouth once daily Levothyroxine 112 mcg tablet Discontinued 112 ug PO daily 90 April 24, 2021 1:26pm September 01, 2021 9:27am Start: 07-06-2019 End: 08-26-2020 take 1 tablet by mouth once daily Levothyroxine 125 mcg tablet Discontinued 125 ug PO daily 90 July 01, 2020 9:42am August 26, 2020 2:25pm Start: 06-08-2017 End: 07-06-2019 take 1 tablet by mouth once daily Levothyroxine 112 mcg tablet Discontinued 112 ug PO daily 90 3 July 14, 2018 4:31pm July 06, 2019 10:21am Start: 06-06-2017 End: 06-08-2017 Levothyroxine 112 mcg capsul e Discontinued PO daily 0 June 06, 2017 1:00am June 08, 2017 4:09pm Completed/Discontinued Medications Medication Drug Class(es) Dates Sig (Normalized) Sig (Original) acetaminophen 325 mg / oxyCODONE hydrochloride 5 mg oral tablet (7 sources) Opioid Agonist Start: 12-14-2018 End: 12-23-2018 Oxycodone-Acetaminoph en 1 TABLET tablet Discontinued 1 - 2 {tbl} PO EVERY 4 HOURS NEEDED as needed for Pain 15 7 0 December 14, 2018 December 20, 2018 12:00am December 23, 2018 12:08am Other acute postprocedural pain Start: 12-14-2018 End: 12-23-2018 take 1 tablet by mouth every four hours as needed Oxycodone-Acetaminophen Discontinued 1 - 2 TABLET PO EVERY 4 HOURS NEEDED 15 7 December 14, 2018 December 22, 2018 11:08pm amoxicillin 875 mg / clavulanate 125 mg oral tablet (7 sources) Penicillin-class Antibacterial Start: 09-13-2017 End: 12-12-2017 Amoxicillin-Pot Clavulanate 875-125 mg tablet Discontinued 1 {tbl} PO Q12H 20 0 September 13, 2017 12:00am December 12, 2017 8:10am Start: 09-13-2017 End: 12-12-2017 take 1 tablet by mouth every twelve hours Amoxicillin-Pot Clavulanate Discontinued 1 TABLET PO Q12H September 12, 2017 11:00pm December 12, 2017 7:10am 12 hr buPROPion hydrochloride 90 mg / naltrexone hydrochloride 8 mg extended release oral tablet (20 sources) Opioid Antagonist, Aminoketone Start: 09-28-2023 End: 09-25-2024 Naltrexone-Bupropion (Contrave) 8-90 mg tablet extended release Discontinued 2 {tbl} PO TWICE A DAY 360 90 1 August 23, 2024 10:40am September 07, 2024 8:27am Start: 06-14-2023 End: 09-12-2023 Naltrexone-Bupropion (Contra ve) 8-90 mg tablet extended release Discontinued 2 {tbl} PO every day in the morning and in the evening 360 90 0 June 14, 2023 12:05pm September 11, 2023 12:00am September 12, 2023 12:05am Start: 05-03-2023 End: 06-02-2023 take 2 tablets by mouth once daily in the morning, then take 2 tablets by mouth twice daily Naltrexone-Bupropion (Contrave) 8-90 mg tablet extended release Discontinued 2 {tbl} PO every day in the morning and in the evening 120 30 0 May 03, 2023 6:19pm June 01, 2023 1:00am June 02, 2023 1:04am 2 tab daily x 1 week then increase to 2 tab BID Start: 03-25-2023 End: 04-24-2023 take 1 tablet by mouth once daily in the morning, then take 1 tablet by mouth twice daily Naltrexone-Bupropion (Contrave) 8-90 mg tablet extended release Discontinued 1 {tbl} PO EVERY MORNING 30 30 0 March 25, 2023 12:00am April 23, 2023 12:00am April 24, 2023 12:04am 1 tab daily x 1 week then increase to 1 tab BID Carboxymethylcellulose-Citri c (Plenity) 0.75 gram capsule (6 sources) Start: 09-17-2022 End: 06-01-2023 take 1 capsule by mouth twice daily before lunch Carboxymethylcellulose-Citric (Plenity) 0.75 gram capsule Discontinued 3 NMA PO TWICE A DAY 540 2 September 17, 2022 12:00am June 01, 2023 10:56am administer before lunch and evening meal/dinner Start: 09-17-2022 End: 06-01-2023 take 1 capsule by mouth twice daily before lunch Carboxymethylcellulose-Citric (Plenity) 0.75 gram capsule Discontinued 3 NMA PO TWICE A DAY 540 September 17, 2022 12:00am June 01, 2023 10:56am administer before lunch and evening meal/dinner Start: 09-17-2022 End: 12-06-2023 Carboxymethylcellulose-Citri c (Plenity) 0.75 gram capsule Discontinued 3 CAP PO TWICE A DAY 540 September 16, 2022 11:00pm June 01, 2023 9:56am administer before lunch and evening meal/dinner Start: 09-17-2022 Carboxymethylc ellulose-Citric (Plenity) 0.75 gram capsule Active 3 CAP PO TWICE A DAY 540 September 16, 2022 11:00pm administer before lunch and evening meal/dinner Start: 09-17-2022 Carboxymethylc ellulose-Citric (Plenity) 0.75 gram capsule Active 3 CAP PO TWICE A DAY 540 September 17, 2022 12:00am administer before lunch and evening meal/dinner citalopram 20 mg oral tablet (20 sources) Serotonin Reuptake Inhibitor Start: 02-17-2018 End: 11-11-2022 take 1 tablet by mouth once daily Citalopram 20 mg tablet Discontinued 0 .ROUTE .COMPLEX 90 0 September 20, 2022 10:53am November 11, 2022 11:40am take 1 tablet by mouth once daily Start: 12-12-2017 End: 02-06-2018 take 1 tablet by mouth once daily Citalopram 20 mg tablet Discontinued 20 mg PO daily December 12, 2017 12:00am February 06, 2018 4:31pm Start: 06-06-2017 End: 09-13-2017 take 1 tablet by mouth once daily Citalopram 20 mg tablet Discontinued 20 mg PO daily June 06, 2017 1:00am September 13, 2017 8:22am Start: 06-06-2017 End: 12-12-2017 take 1 tablet by mouth once daily Citalopram 10 mg tablet Discontinued 10 mg PO daily June 06, 2017 1:00am December 12, 2017 8:10am cyclobenzaprine hydrochloride 10 mg oral tablet (7 sources) Muscle Relaxant Start: 09-09-2020 End: 09-16-2020 take 1 tablet by mouth three times daily Cyclobenzaprine 10 mg tablet Discontinued 10 mg PO THREE TIMES A DAY 10 0 September 09, 2020 12:00am September 16, 2020 8:39am 1 ml denosumab 60 mg/ml prefilled syringe (20 sources) RANK Ligand Inhibitor Start: 06-23-2021 End: 12-28-2021 inject 60 mg by subcutaneous injection once Prolia (denosumab) 60 mg/mL subcutaneous syringe Discontinued 60 MG SC ONCE June 23, 2021 12:30pm June 23, 2021 1:10pm Start: 12-02-2020 End: 12-02-2020 inject 60 mg by subcutaneous injection once Prolia (denosumab) 60 mg/mL subcutaneous syringe Discontinued 60 MG SC ONCE December 02, 2020 2:30pm December 02, 2020 2:32pm Start: 06-02-2020 End: 06-02-2020 inject 60 mg by subcutaneous injection once Prolia (denosumab) 60 mg/mL subcutaneous syringe Discontinued 60 MG SC ONCE June 02, 2020 3:54pm June 02, 2020 4:38pm Start: 10-15-2019 End: 10-15-2019 inject 60 mg by subcutaneous injection once Prolia (denosumab) 60 mg/mL subcutaneous syringe Discontinued 60 MG SC ONCE October 15, 2019 10:55am October 15, 2019 11:09am Start: 04-05-2019 End: 04-05-2019 inject 60 mg by subcutaneous injection once Prolia (denosumab) 60 mg/mL subcutaneous syringe Discontinued 60 MG SC ONCE April 05, 2019 12:17pm April 05, 2019 12:26pm Start: 09-13-2018 End: 09-13-2018 inject 60 mg by subcutaneous injection once Prolia (denosumab) 60 mg/mL subcutaneous syringe Discontinued 60 MG SC ONCE September 13, 2018 12:30pm September 13, 2018 1:01pm Start: 06-12-2018 End: 01-04-2024 Denosumab (Prolia) 60 mg/mL syringe Discontinued 60 mg SC every 6 months 06 29December 15, 2022 9:30am January 04, 2024 4:09pm escitalopram 5 mg oral tablet (12 sources) Serotonin Reuptake Inhibitor Start: 11-11-2022 End: 09-28-2023 take 1 tablet by mouth once daily Escitalopram Oxalate (Lexapro) 5 mg tablet Discontinued 5 mg PO DAILY 90 November 11, 2022 12:00am September 28, 2023 10:19am Start: 02-06-2018 End: 02-17-2018 take 1 tablet by mouth once daily Escitalopram Oxalate (Lexapro) 10 mg tablet Discontinued 10 mg PO daily February 06, 2018 12:00am February 17, 2018 4:32pm Flucelvax Quad (flu vac qs (6 ms up) CD) 60 mcg (15 mcg x (1 source) Start: 06-23-2021 End: 06-23-2021 inject 15 ug by intramuscular injection once Flucelvax Quad (flu vac qs (6 ms up) CD) 60 mcg (15 mcg x Discontinued 60 MCG IM ONCE 0.5 June 23, 2021 12:30pm June 23, 2021 1:10pm fluconazole 150 mg oral tablet (7 sources) Azole Antifungal Start: 09-12-2020 End: 09-16-2020 take 1 tablet by mouth once Fluconazole (Diflucan) 150 mg tablet Discontinued 150 mg PO ONCE September 12, 2020 12:00am September 16, 2020 8:40am as a single dose loratadine 10 mg oral tablet (7 sources) Start: 06-06-2017 End: 02-06-2018 take 1 tablet by mouth once daily as needed Loratadine (Claritin) 10 mg tablet Discontinued 10 mg PO daily as needed June 06, 2017 1:00am February 06, 2018 4:31pm methylPREDNISolone 4 mg oral tablet (14 sources) Corticosteroid Start: 09-16-2020 End: 09-01-2021 take 1 tablet by mouth once Methylprednisolone (Medrol (Darryl)) 4 mg tablets,dose pack Discontinued 0 PO per package directions September 16, 2020 12:00am September 01, 2021 9:12am PO PER PKG DIR Start: 11-20-2019 End: 02-05-2020 take 1 tablet by mouth once Methylprednisolone (Medrol (Darryl)) 4 mg tablets,dose pack Discontinued 0 PO per package directions November 20, 2019 12:00am February 05, 2020 8:41am PO PER PKG DIR naproxen 250 mg oral tablet (7 sources) Nonsteroidal Anti-inflammatory Drug Start: 12-14-2018 End: 12-25-2018 take 250-500 mg by mouth every eight hours as needed for pain Naproxen 250 MG tablet Discontinued 250 - 500 mg PO EVERY 8 HOURS NEEDED as needed for MILD PAIN 30 December 14, 2018 12:00am December 25, 2018 8:11am pregabalin 50 mg oral capsule (20 sources) Start: 09-16-2020 End: 03-04-2021 take 1 capsule by mouth at bedtime Pregabalin (Lyrica) 50 mg capsule Discontinued 50 mg PO AT BEDTIME 30 0 October 02, 2020 9:54am March 04, 2021 8:26am Problems Active Problems Problem Classification Problem Date Documented Da te Episodic/Chronic Anxiety disorders (20 sources) Mixed anxiety and depressive disorder; Translations: [Other specified anxiety disorders] Chronic Fracture of lower limb (2 sources) Fracture of phalanx of foot; Translations: [Unspecified fracture of unspecified toe(s), initial encounter for closed fracture] 01-03-2024 Episodic Genitourinary symptoms and ill-defined conditions (7 sources) Female stress incontinence; Translations: [Stress incontinence (female) (male)] 04-14-2019 Chronic Heart valve disorders (7 sources) Heart murmur; Translations: [Cardiac murmur, unspecified] 09-13-2017 Episodic Immunizations and screening for infectious disease (10 sources) Needs influenza immunization; Translations: [Encounter for immunization] Onset: 03-28-2025 06-23-2021 Episodic Osteoporosis (18 sources) Osteoporosis; Translations: [Age-related osteoporosis without current pathological fracture] Onset: 05-07-2025 Chronic Other circulatory disease (3 sources) Elevated blood pressure; Translations: [Elevated blood-pressure reading, without diagnosis of hypertension] 09-07-2024 Episodic Other connective tissue disease (2 sources) Pain in hallux; Translations: [Pain in unspecified toe(s)] 01-02-2024 Episodic Other nutritional; endocrine; and metabolic disorders (5 sources) Overweight; Translations: [Overweight] 09-17-2022 Episodic Other nutritional; endocrine; and metabolic disorders (6 sources) Body mass index 25-29 - overweight; Translations: [Overweight] 03-25-2023 Episodic Other upper respiratory disease (7 sources) Seasonal allergic rhinitis; Translations: [Other seasonal allergic rhinitis] 12-14-2018 Chronic Other upper respiratory infections (1 source) Chronic sinusitis, unspecified; Translations: [Chronic sinusitis, unspecified] Onset: 04-25-2025 Chronic Other upper respiratory infections (7 sources) Acute sinusitis; Translations: [Acute sinusitis, unspecified] 12-14-2018 Episodic Prolapse of female genital organs (14 sources) Cystocele and rectocele co-occurrent with incomplete uterovaginal prolapse; Translations: [Incomplete uterovaginal prolapse] 02-12-2018 Chronic Comment on above: plan TV BS combined case with Dr Glasgow for pelvic support repair Thyroid disorders (15 sources) Hypothyroidism; Translations: [Hypothyroidism, unspecified] Onset: 04-20-2025 Chronic Past or Other Problems Problem Classification Problem Date Documented Da te Episodic/Chronic Other screening for suspected conditions (not mental disorders or infectious disease) (8 sources) Patient encounter status; Translations: [Encounter for screening for malignant neoplasm of colon] Onset: 06-15-2024 04-26-2022 Episodic Unclassified (6 sources) bunion removal 01-15-2022 Results Test Name Value Interpretation Reference Range Facility Office Visit Reporton 2024 Office Visit Report [facility] [address] [place] [address] OFFICE VISIT Date of Service: 05/07/25 MR#: [id number] Acct: [id number] Patient: MARLEN LARA Rep #: [id number] 5 : 1960 Provider: MAXINE NURSE Age/Sex: 64/F Location: [email or web address] Status: Signed Intake Vital Signs 03/28/25 07:43 Height 5 ft 8 in Weight: 169 lb BMI 25.7 BP 118/80 Blood Pressure Location Lt brachial Position Sitting Respiration 16 Pulse 80 Pulse Source Monitor Temp 98.3 F Temp Source Temporal Pulse Oximetry (%) 98 Oxygen Delivery Method room air Intake Visit Reasons: PROLIA-$0 Chief Complaint: prolia Allergies gabapentin (From Neurontin) Allergy (Severe, Verified 03/28/25 07:06) Hives Nurse's Note: prolia injection Office Procedures Injections Is this a patient provided medication?: Yes Office Meds Prolia 60 mg/mL subcutaneous syringe Performing Provider: Ko Eden MD Performing Location: [facility] Administered by: Angélica Walker on 05/07/25 09:03 Dose Route Admin Location Dispensed Lot Number Expiration Date Package NDC NDC Lime Slaker 60 mg subcut LEFT ARM 1 mL [id number] 06/26/27 13186-280-72 [id number] [facility] Comments: Patient here for Prolia injection; tolerated well. Medication provided by [facility] Assessment and Plan Assessment and Plan (1) Osteoporosis: Status: Chronic Qualifiers: Osteoporosis type: unspecified Presence of current pathological fracture: without current pathological fracture Qualified Code(s): M81.0 - Age-related osteoporosis without current pathological fracture Orders: Orders Prolia/Jubbonti Injection Today M81.0 - Age-related osteoporosis without current pathological fracture 05/07/25 1238 Date Shari Arley BUTLER Cosigner Signature: Date (if applicable) CC: Normal [facility] Nasopharyngeal Cultureon NAC Culture exhibits no growth. Normal [facility] Comment on above: Performed By: #### M 100.2500, #### [facility] [address] [place], [address] Gram Stainon 04-17-2025 GS Gram Stain Rare White Blood Cells No organisms seen Normal [facility] Comment on above: Performed By: #### M 100.2500, #### [facility] [address] [place], [address] CBC W/Diff, Automatedon Absolute Lymph 1.67 X10 3/uL Normal 0.83-4.51 [facility] Comment on above: Performed By: #### L 500.4050, L506.0400, L501.9520, L100.0100, L501.35614 #### [facility] [address] [place], [address] Absolute Neut 5.0 X10 3/uL Normal 2.0-7.7 [facility] Comment on above: Performed By: #### L 500.4050, L506.0400, L501.9520, L100.0100, L501.34967 #### [facility] [address] [place], [address] Basophils/100 WBC (Bld) 0.3 % Normal 0-1 [facility] Comment on above: Performed By: #### L 500.4050, L506.0400, L501.9520, L100.0100, L501.70677 #### [facility] [address] [place], [address] Eosinophils/100 WBC (Bld) 0.8 % Normal 0-5 [facility] Comment on above: Performed By: #### L 500.4050, L506.0400, L501.9520, L100.0100, L501.63805 #### [facility] [address] [place], [address] Erythrocyte distribution width (RBC) [Ratio] 13.0 % Normal 11.6-14.6 [facility] Comment on above: Performed By: #### L 500.4050, L506.0400, L501.9520, L100.0100, L501.25020 #### [facility] [address] [place], [address] Hematocrit (Bld) [Volume fraction] 43.9 % Normal 37-47 [facility] Comment on above: Performed By: #### L 500.4050, L506.0400, L501.9520, L100.0100, L501.71928 #### [facility] [address] [place], [address] Hemoglobin (Bld) [Mass/Vol] 14.3 g/dL Normal 12.0-15.0 [facility] Comment on above: Performed By: #### L 500.4050, L506.0400, L501.9520, L100.0100, L501.89688 #### [facility] [address] [place], [address] IG% 0.300 Normal 0.0-0.9 [facility] Comment on above: Result Comment: IG% - Immature Granulocytes (promyelocytes, myelocytes and metamyelocytes) > 1% indicates that a LEFT SHIFT is Present. Performed By: #### L 500.4050, L506.0400, L501.9520, L100.0100, L501.34761 #### [facility] [address] [place], [address] Lymphocytes/100 WBC (Bld) 22.7 % Normal 19-41 [facility] Comment on above: Performed By: #### L 500.4050, L506.0400, L501.9520, L100.0100, L501.46452 #### [facility] [address] [place], [address] MCH (RBC) [Entitic mass] 30.6 pg Normal 27.0-32.0 [facility] Comment on above: Performed By: #### L 500.4050, L506.0400, L501.9520, L100.0100, L501.64950 #### [facility] [address] [place], [address] MCHC (RBC) [Mass/Vol] 32.6 g/dL Normal 32-36 [facility] Comment on above: Performed By: #### L 500.4050, L506.0400, L501.9520, L100.0100, L501.70845 #### [facility] [address] [place], [address] MCV (RBC) [Entitic vol] 94.0 fL Normal 81-99 [facility] Comment on above: Performed By: #### L 500.4050, L506.0400, L501.9520, L100.0100, L501.47272 #### [facility] [address] [place], [address] Monocytes/100 WBC (Bld) 8.0 % Normal 0-10 [facility] Comment on above: Performed By: #### L 500.4050, L506.0400, L501.9520, L100.0100, L501.90270 #### [facility] [address] [place], [address] Neutrophils/100 WBC (Bld) 67.9 % Normal 47-70 [facility] Comment on above: Performed By: #### L 500.4050, L506.0400, L501.9520, L100.0100, L501.00490 #### [facility] [address] [place], [address] Nucleated RBC (Bld) [#/Vol] 0 10*3/uL Normal 0-5 [facility] Comment on above: Performed By: #### L 500.4050, L506.0400, L501.9520, L100.0100, L501.57564 #### [facility] [address] [place], [address] Platelet mean volume (Bld) [Entitic vol] 9.2 fL Normal 6.2-12.0 [facility] Comment on above: Performed By: #### L 500.4050, L506.0400, L501.9520, L100.0100, L501.49412 #### [facility] [address] [place], [address] Platelets (Bld) [#/Vol] 357 10*3/uL Normal 150-450 [facility] Comment on above: Performed By: #### L 500.4050, L506.0400, L501.9520, L100.0100, L501.59423 #### [facility] [address] [place], [address] RBC (Bld) [#/Vol] 4.67 10*6/uL Normal 4.2-5.4 [facility] Comment on above: Performed By: #### L 500.4050, L506.0400, L501.9520, L100.0100, L501.14419 #### [facility] [address] [place], [address] RDW SD 44.8 fl High 35.1-43.9 [facility] Comment on above: Performed By: #### L 500.4050, L506.0400, L501.9520, L100.0100, L501.28365 #### [facility] [address] [place], [address] WBC (Bld) [#/Vol] 7.4 10*3/uL Normal 4.4-11.0 [facility] [facility] Comment on above: Performed By: #### L 500.4050, L506.0400, L501.9520, L100.0100, L501.06700 #### [facility] [address] [place], [address] Comprehensive Metabolic [facility] 03-28-2025 Albumin [Mass/Vol] 4.3 g/dL Normal 3.4-4.8 [facility] Comment on above: Performed By: #### L 500.4050, L506.0400, L501.9520, L100.0100, L501.84082 #### [facility] [address] [place], [address] Albumin/Globulin [Mass ratio] 1.5 {ratio} Normal 0.9-2.4 [facility] Comment on above: Performed By: #### L 500.4050, L506.0400, L501.9520, L100.0100, L501.09215 #### [facility] [address] [place], [address] ALK PHOS 90 U/L Normal 35-104 [facility] Comment on above: Performed By: #### L 500.4050, L506.0400, L501.9520, L100.0100, L501.36211 #### [facility] [address] [place], [address] ALT [Catalytic activity/Vol] 29 U/L Normal <=34 [facility] Comment on above: Performed By: #### L 500.4050, L506.0400, L501.9520, L100.0100, L501.69663 #### [facility] [address] [place], [address] AST [Catalytic activity/Vol] 27 U/L Normal <=31 [facility] Comment on above: Performed By: #### L 500.4050, L506.0400, L501.9520, L100.0100, L501.41692 #### [facility] [address] [place], [address] Bilirubin [Mass/Vol] 0.19 mg/dL Normal 0.00-1.30 [facility] Comment on above: Performed By: #### L 500.4050, L506.0400, L501.9520, L100.0100, L501.80283 #### [facility] [address] [place], [address] BUN/CRE 25.5 RATIO High 10-20 [facility] Comment on above: Performed By: #### L 500.4050, L506.0400, L501.9520, L100.0100, L501.35810 #### [facility] [address] [place], [address] Calcium [Mass/Vol] 9.5 mg/dL Normal 7.6-11.0 [facility] Comment on above: Performed By: #### L 500.4050, L506.0400, L501.9520, L100.0100, L501.57978 #### [facility] [address] [place], [address] Chloride [Moles/Vol] 106 mmol/L Normal 98-108 [facility] Comment on above: Performed By: #### L 500.4050, L506.0400, L501.9520, L100.0100, L501.93501 #### [facility] [address] [place], [address] CO2 [Moles/Vol] 24.3 mmol/L Normal 21.0-32.0 [facility] Comment on above: Performed By: #### L 500.4050, L506.0400, L501.9520, L100.0100, L501.41100 #### [facility] [address] [place], [address] Creatinine [Mass/Vol] 0.77 mg/dL Normal 0.70-1.20 [facility] Comment on above: Performed By: #### L 500.4050, L506.0400, L501.9520, L100.0100, L501.38142 #### [facility] [address] [place], [address] GAP 11 Normal 5-15 [facility] Comment on above: Performed By: #### L 500.4050, L506.0400, L501.9520, L100.0100, L501.36269 #### [facility] [address] [place], [address] GFR/1.73 sq M.predicted among non-blacks MDRD (S/P/Bld) [Vol rate/Area] 87 mL/min/{1.73_m2} Normal >60 [facility] Comment on above: Result Comment: mL/m in/1.73m2 CKD-EPI Creatinine Equation (2020) Performed By: #### L 500.4050, L506.0400, L501.9520, L100.0100, L501.66422 #### [facility] [address] [place], [address] Globulin (S) [Mass/Vol] 2.8 g/dL Normal 2.2-4.2 [facility] Comment on above: Performed By: #### L 500.4050, L506.0400, L501.9520, L100.0100, L501.05602 #### [facility] [address] [place], [address] Glucose [Mass/Vol] 86 mg/dL Normal 70-99 [facility] Comment on above: Performed By: #### L 500.4050, L506.0400, L501.9520, L100.0100, L501.30556 #### [facility] [address] [place], [address] Potassium [Moles/Vol] 4.1 mmol/L Normal 3.3-5.1 [facility] Comment on above: Performed By: #### L 500.4050, L506.0400, L501.9520, L100.0100, L501.89117 #### [facility] [address] [place], [address] Sodium [Moles/Vol] 142 mmol/L Normal 133-145 [facility] Comment on above: Performed By: #### L 500.4050, L506.0400, L501.9520, L100.0100, L501.48731 #### [facility] [address] [place], [address] T PROT 7.0 g/dL Normal 5.9-8.4 [facility] Comment on above: Performed By: #### L 500.4050, L506.0400, L501.9520, L100.0100, L501.35883 #### [facility] [address] [place], [address] Urea nitrogen [Mass/Vol] 20 mg/dL High 4-19 [facility] Comment on above: Performed By: #### L 500.4050, L506.0400, L501.9520, L100.0100, L501.33580 #### [facility] [address] [place], [address] Free T3on 03-28-2025 Free T3 [Mass/Vol] 3.2 pg/mL Normal 2.18-3.98 [facility] Comment on above: Performed By: #### L 500.4050, L506.0400, L501.9520, L100.0100, L501.77556 #### [facility] [address] [place], [address] Internal Medicine Office Vis iton 03-28-2025 Internal Medicine Office Visit [facility] Internal Medicine [address] [place], [place] [address] OFFICE VISIT Date of Service: 03/28/25 MR#: [id number] Acct: [id number] Name: MARLEN LARA Rep #: [id number] : 1960 Provider: JULIEN foster Age/Sex: 64/F Location: [facility] Status: Signed with Addenda ADDENDUM by OBDULIA Torres on 03/28/25 at 1538 Office Procedure Documentation entered by Marychuy Torres MA 03/28/25 15:38: Immunizations Flucelvax 1560-4102 (PF) 45 mcg (15 mcg x 3)/0.5 mL IM syringe Performing Provider: JULIEN Desai Performing Location: [facility] Administered by: Marychuy Torres MA on 03/28/25 15:37 Dose Route Admin Location Dispensed Lot Number Expiration Date Package NDC NDC Lime Slaker 0.5 mL IM Left Deltoid 0.5 mL [id number] 11/03/25 30656-133-41 [id number] [employer] VIS Given Date VIS Provided VIS Publication Date 03/28/25 Single Vaccine 24 Eligibility Eligibility Date Funding Source Not Applicable Date cc: * Signed Intake Vital Signs 09/07/24 08:28 03/28/25 07:43 Height 5 ft 8 in 5 ft 8 in Weight: 165 lb 169 lb BMI 25.0 25.7 BP 132/92 H 118/80 Blood Pressure Location Lt brachial Lt brachial Position Sitting Sitting Respiration 16 16 Pulse 79 80 Pulse Source Monitor Monitor Temp 97.7 F L 98.3 F Temp Source Temporal Temporal Pulse Oximetry (%) 99 98 Oxygen Delivery Method room air room air Intake Visit Reasons: 6 M FU Chief Complaint: 3 M FU Program Admin Required: No Is patient in pain?: No Allergies gabapentin (From Neurontin) Allergy (Severe, Verified 03/28/25 07:06) Hives Medications ???Medication ???Instructions ???Recorded ???Confirmed ???Type calcium carbonate (Calcium 600) 1,200 mg PO QDAY 12/12/17 03/28/25 History cholecalciferol (vitamin D3) 50 2,000 unit PO QDAY 12/12/17 History mcg (2,000 unit) capsule denosumab 60 mg/mL subcutaneous 60 mg subcut [id number] #1 mL 03/28/25 Rx syringe (Prolia) bupropion HCl 150 mg tablet,12 hr 150 mg PO BID #60 ea 03/28/2508/21 Rx sustained-release (Wellbutrin SR) levothyroxine 112 mcg tablet 112 mcg PO QAM #90 TABLETS 5 03/28/25 Rx Have you fallen in the past year?: No Nurse's Note: needs a refill on synthroid, Pt knows that labs are needed notified of lab hours and locations due to our lab out of office. Pt wants to discuss contrave as she sees no weight loss now. [facility] Medical History Elevated blood pressure reading Health care maintenance Toe fracture Great toe pain Overweight with body mass index (BMI) 25.0-29.9 Non-smoker Flu vaccine need Trigeminal neuralgia Anxiety Heart murmur Hypothyroidism Osteoporosis Seasonal allergies Surgical History History of colonoscopy History of hysterectomy History of tubal ligation bunion removal H/O thyroidectomy Family History Mother Colon cancer Father Hypertension CVA (cerebral vascular accident) Brother Hypertension Sister Thyroid disorder Social History adopted: No household members: spouse number of children: 2 current occupational status: employed current occupation: 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 Patient states she needs a refill of her levothyroxine. Knows that her blood work is to and we will get that done today. She states the Contrave has not been helpful she thinks she has lost about 4 pounds while taking it. She states she would like to lose approximately 20 pounds. She does state that she walks 3-4 times per week for 45 minutes on her treadmill she also eats meals she cooks at home often having yogurt for breakfast fruits and chicken or fish for dinner. She (more content not included)... Normal [facility] T4 Free Directon 03-28-2025 T4 FREE DIRECT 1.50 ng/dL High 0.76-1.46 [facility] Comment on above: Performed By: #### L 500.4050, L506.0400, L501.9520, L100.0100, L501.24085 ####[facility] [address] [place], [place], [id number] Thyroid Stim Hormone (TSH)on 03-28-2025 TSH 0.692 uIU/mL Normal 0.300-4.200 [facility] Comment on above: Performed By: #### L 500.4050, L506.0400, L501.9520, L100.0100, L501.88599 #### [facility] [address] [place], [place], [id number] Absolute neutrophil countOrd ered By: Ko Eden on 09-07-2024 Neutrophils (Bld) [#/Vol] 2.4 10*3/uL 2.0-7.7 [facility] Anion gap in Serum or Plasma Ordered By: Ko Eden on 09-07-2024 Anion gap [Moles/Vol] 12 mmol/L 5-15 [facility] BUN/creatinine ratioOrdered By: Ko Eden on 09-07-2024 Urea nitrogen/Creatinine [Mass ratio] 18.2 mg/mg 10-20 [facility] Basophil percentageOrdered B y: Ko Eden on 09-07-2024 Basophils/100 WBC (Bld) 0.6 % 0-1 [facility] Bilirubin, totalOrdered By: Ko Eden on 09-07-2024 Bilirubin [Mass/Vol] 0.29 mg/dL 0.00-1.30 [facility] CBC W/Diff, Automatedon 08-25 Absolute Lymph 1.74 X10 3/uL Normal 0.83-4.51 [facility] Comment on above: Performed By: #### L 506.1001, L500.4050, L100.0100, L501.9520, L500.4100 ####[facility] [address] [place], [address] Absolute Neut 2.4 X10 3/uL Normal 2.0-7.7 [facility] Comment on above: Performed By: #### L 506.1001, L500.4050, L100.0100, L501.9520, L500.4100 ####[facility] [address] [place], [address] Basophils/100 WBC (Bld) 0.6 % Normal 0-1 [facility] Comment on above: Performed By: #### L 506.1001, L500.4050, L100.0100, L501.9520, L500.4100 ####[facility] [address] [place], [address] Eosinophils/100 WBC (Bld) 2.5 % Normal 0-5 [facility] Comment on above: Performed By: #### L 506.1001, L500.4050, L100.0100, L501.9520, L500.4100 ####[facility] [address] [place], [address] Erythrocyte distribution width (RBC) [Ratio] 12.6 % Normal 11.6-14.6 [facility] Comment on above: Performed By: #### L 506.1001, L500.4050, L100.0100, L501.9520, L500.4100 ####[facility] [address] [place], [address] Hematocrit (Bld) [Volume fraction] 43.3 % Normal 37-47 [facility] Comment on above: Performed By: #### L 506.1001, L500.4050, L100.0100, L501.9520, L500.4100 ####[facility] [address] [place], [address] Hemoglobin (Bld) [Mass/Vol] 14.0 g/dL Normal 12.0-15.0 [facility] Comment on above: Performed By: #### L 506.1001, L500.4050, L100.0100, L501.9520, L500.4100 ####[facility] [address] [place], [address] IG% 0.200 Normal 0.0-0.9 [facility] Comment on above: Result Comment: IG% - Immature Granulocytes (promyelocytes, myelocytes and metamyelocytes) > 1% indicates that a LEFT SHIFT is Present. Performed By: #### L 506.1001, L500.4050, L100.0100, L501.9520, L500.4100 ####[facility] [address] [place], [address] Lymphocytes/100 WBC (Bld) 36.6 % Normal 19-41 [facility] Comment on above: Performed By: #### L 506.1001, L500.4050, L100.0100, L501.9520, L500.4100 ####[facility] [address] [place], [address] MCH (RBC) [Entitic mass] 30.8 pg Normal 27.0-32.0 [facility] Comment on above: Performed By: #### L 506.1001, L500.4050, L100.0100, L501.9520, L500.4100 ####[facility] [address] [place], [address] MCHC (RBC) [Mass/Vol] 32.3 g/dL Normal 32-36 [facility] Comment on above: Performed By: #### L 506.1001, L500.4050, L100.0100, L501.9520, L500.4100 ####[facility] [address] [place], [address] MCV (RBC) [Entitic vol] 95.4 fL Normal 81-99 [facility] Comment on above: Performed By: #### L 506.1001, L500.4050, L100.0100, L501.9520, L500.4100 ####[facility] [address] [place], [address] Monocytes/100 WBC (Bld) 10.1 % High 0-10 [facility] Comment on above: Performed By: #### L 506.1001, L500.4050, L100.0100, L501.9520, L500.4100 ####[facility] [address] [place], [address] Neutrophils/100 WBC (Bld) 50.0 % Normal 47-70 [facility] Comment on above: Performed By: #### L 506.1001, L500.4050, L100.0100, L501.9520, L500.4100 ####[facility] [address] [place], [address] Nucleated RBC (Bld) [#/Vol] 0 10*3/uL Normal 0-5 [facility] Comment on above: Performed By: #### L 506.1001, L500.4050, L100.0100, L501.9520, L500.4100 ####[facility] [address] [place], [address] Platelet mean volume (Bld) [Entitic vol] 9.9 fL Normal 6.2-12.0 [facility] Comment on above: Performed By: #### L 506.1001, L500.4050, L100.0100, L501.9520, L500.4100 ####[facility] [address] [place], [address] Platelets (Bld) [#/Vol] 361 10*3/uL Normal 150-450 [facility] Comment on above: Performed By: #### L 506.1001, L500.4050, L100.0100, L501.9520, L500.4100 ####[facility] [address] [place], [address] RBC (Bld) [#/Vol] 4.54 10*6/uL Normal 4.2-5.4 [facility] Comment on above: Performed By: #### L 506.1001, L500.4050, L100.0100, L501.9520, L500.4100 ####[facility] [address] [place], [address] RDW SD 43.8 fl Normal 35.1-43.9 [facility] Comment on above: Performed By: #### L 506.1001, L500.4050, L100.0100, L501.9520, L500.4100 ####[facility] [address] [place], [address] WBC (Bld) [#/Vol] 4.8 10*3/uL Normal 4.4-11.0 [facility] Comment on above: Performed By: #### L 506.1001, L500.4050, L100.0100, L501.9520, L500.4100 ####[facility] [address] [place], [address] Calculated very low density lipoprotein (VLDL) cholesterol measurementOrdered By: Ko Eden on 09-07-2024 VLDL Cholesterol 17 mg/dL 5-40 [facility] Carbon dioxide, total [Moles /volume] in Central venous bloodOrdered By: Ko Eden on 09-07-2024 CO2 [Moles/Vol] 23.4 mmol/L 21.0-32.0 [facility] Chloride assayOrdered By: Jemal Eden on 09-07-2024 Chloride [Moles/Vol] 105 mmol/L 98-108 [facility] Comprehensive Metabolic Prof ilon 09-07-2024 Albumin [Mass/Vol] 4.2 g/dL Normal 3.4-4.8 [facility] Comment on above: Performed By: #### L 506.1001, L500.4050, L100.0100, L501.9520, L500.4100 ####[facility] [address] [place], [address] Albumin/Globulin [Mass ratio] 1.5 {ratio} Normal 0.9-2.4 [facility] Comment on above: Performed By: #### L 506.1001, L500.4050, L100.0100, L501.9520, L500.4100 ####[facility] [address] [place], [address] ALK PHOS 92 U/L Normal 35-104 [facility] Comment on above: Performed By: #### L 506.1001, L500.4050, L100.0100, L501.9520, L500.4100 ####[facility] [address] [place], [address] ALT [Catalytic activity/Vol] 32 U/L Normal <=34 [facility] Comment on above: Performed By: #### L 506.1001, L500.4050, L100.0100, L501.9520, L500.4100 ####[facility] [address] [place], [address] AST [Catalytic activity/Vol] 29 U/L Normal <=31 [facility] Comment on above: Performed By: #### L 506.1001, L500.4050, L100.0100, L501.9520, L500.4100 ####[facility] [address] [place], [address] Bilirubin [Mass/Vol] 0.29 mg/dL Normal 0.00-1.30 [facility] Comment on above: Performed By: #### L 506.1001, L500.4050, L100.0100, L501.9520, L500.4100 ####[facility] [address] [place], [address] BUN/CRE 18.2 RATIO Normal 10-20 [facility] Comment on above: Performed By: #### L 506.1001, L500.4050, L100.0100, L501.9520, L500.4100 ####[facility] [address] [place], [address] Calcium [Mass/Vol] 10.3 mg/dL Normal 7.6-11.0 [facility] Comment on above: Performed By: #### L 506.1001, L500.4050, L100.0100, L501.9520, L500.4100 ####[facility] [address] [place], [address] Chloride [Moles/Vol] 105 mmol/L Normal 98-108 [facility] Comment on above: Performed By: #### L 506.1001, L500.4050, L100.0100, L501.9520, L500.4100 ####[facility] [address] [place], [address] CO2 [Moles/Vol] 23.4 mmol/L Normal 21.0-32.0 [facility] Comment on above: Performed By: #### L 506.1001, L500.4050, L100.0100, L501.9520, L500.4100 ####[facility] [address] [place], [address] Creatinine [Mass/Vol] 1.01 mg/dL Normal 0.70-1.20 [facility] Comment on above: Performed By: #### L 506.1001, L500.4050, L100.0100, L501.9520, L500.4100 ####[facility] [address] [place], [address] GAP 12 Normal 5-15 [facility] Comment on above: Performed By: #### L 506.1001, L500.4050, L100.0100, L501.9520, L500.4100 ####[facility] [address] [place], [address] GFR/1.73 sq M.predicted among non-blacks MDRD (S/P/Bld) [Vol rate/Area] 63 mL/min/{1.73_m2} Normal >60 [facility] Comment on above: Result Comment: mL/m in/1.73m2 CKD-EPI Creatinine Equation (2020) Performed By: #### L 506.1001, L500.4050, L100.0100, L501.9520, L500.4100 ####[facility] [address] [place], [address] Globulin (S) [Mass/Vol] 2.9 g/dL Normal 2.2-4.2 [facility] Comment on above: Performed By: #### L 506.1001, L500.4050, L100.0100, L501.9520, L500.4100 ####[facility] [address] [place], [address] Glucose [Mass/Vol] 97 mg/dL Normal 70-99 [facility] Comment on above: Performed By: #### L 506.1001, L500.4050, L100.0100, L501.9520, L500.4100 ####[facility] [address] [place], [address] Potassium [Moles/Vol] 4.9 mmol/L Normal 3.3-5.1 [facility] Comment on above: Performed By: #### L 506.1001, L500.4050, L100.0100, L501.9520, L500.4100 ####[facility] [address] [place], [address] Sodium [Moles/Vol] 141 mmol/L Normal 133-145 [facility] Comment on above: Performed By: #### L 506.1001, L500.4050, L100.0100, L501.9520, L500.4100 ####[facility] [address] [place], [address] T PROT 7.0 g/dL Normal 5.9-8.4 [facility] Comment on above: Performed By: #### L 506.1001, L500.4050, L100.0100, L501.9520, L500.4100 ####[facility] [address] [place], [address] Urea nitrogen [Mass/Vol] 18 mg/dL Normal 4-19 [facility] Comment on above: Performed By: #### L 506.1001, L500.4050, L100.0100, L501.9520, L500.4100 ####[facility] [address] [place], [address] Eosinophil percentageOrdered By: Ko Eden on 09-07-2024 Eosinophils/100 WBC (Bld) 2.5 % 0-5 [facility] Erythrocyte distribution wid th ratioOrdered By: Ko Eden on 09-07-2024 Erythrocyte distribution width (RBC) [Ratio] 12.6 % 11.6-14.6 [facility] Erythrocyte distribution wid th standard deviationOrdered By: Ko Eden on 09-07-2024 Erythrocyte distribution width (RBC) [Entitic vol] 43.8 fL 35.1-43.9 [facility] GFR/1.73 sq M.predicted freeman g non-blacks MDRD (S/P/Bld) [Vol rate/Area]Ordered By: Ko Eden on 09-07-2024 Estimated GFR (MDRD) Non-Af Amer 63 >60 [facility] Comment on above: mL/min/1.73m2 CKD-EP I Creatinine Equation (2020) Hematocrit Auto (Bld) [Volum e fraction]Ordered By: Ko Eden on 09-07-2024 Hematocrit (Bld) [Volume fraction] 43.3 % 37-47 [facility] Hemoglobin measurementOrdere d By: Ko Eden on 09-07-2024 Hemoglobin (Bld) [Mass/Vol] 14.0 g/dL 12.0-15.0 [facility] Immature granulocytes/100 WB C Auto (Bld)Ordered By: Ko Eden on 09-07-2024 Immature granulocytes/100 WBC (Bld) 0.200 % 0.0-0.9 [facility] Comment on above: IG% - Immature Granu locytes (promyelocytes, myelocytes and metamyelocytes) > 1% indicates that a LEFT SHIFT is Present. Internal Medicine Office Vis itolisbeth 09-07-2024 Internal Medicine Office Visit [facility] [address] [place] [address] [place] [address] OFFICE VISIT Date of Service: 09/07/24 MR#: [id number] Acct: [id number] Name: MARLEN LARA Rep #: [id number] : 1960 Provider: Dr. Ko lion MD Age/Sex: 64/F Location: [facility] Status: Signed Intake Vital Signs 04/23/24 10:51 09/07/24 08:28 Height 5 ft 8 in 5 ft 8 in Weight: 165 lb BMI 25.0 BP 132/92 H Blood Pressure Location Lt brachial Position Sitting Respiration 16 Pulse 79 Pulse Source Monitor Temp 97.7 F L Temp Source Temporal Pulse Oximetry (%) 99 Oxygen Delivery Method room air Intake Visit Reasons: 3 M FU Chief Complaint: 3 M FU Is patient in pain?: No Allergies gabapentin (From Neurontin) Allergy (Severe, Verified 09/07/24 08:27) Hives Medications ???Medication ???Instructions ???Recorded ???Confirmed ???Type calcium carbonate (Calcium 600) 1,200 mg PO QDAY 12/12/17 09/07/24 History cholecalciferol (vitamin D3) 50 2,000 unit PO QDAY 12/12/17 History mcg (2,000 unit) capsule denosumab 60 mg/mL subcutaneous 60 mg subcut [id number] #1 mL 09/07/24 Rx syringe (Prolia) levothyroxine 112 mcg tablet 112 mcg PO QAM #90 TABLETS 5 09/07/24 Rx naltrexone 8 mg-bupropion 90 mg 2 tab PO BID 90 days #360 TABLETS 09/07/24 09/07/24 Rx tablet,extended release (Contrave) Have you fallen in the past year?: No [facility] Medical History (Updated 09/07/24 @ 12:[address] Ko Eden MD) Elevated blood pressure reading Health care maintenance Toe fracture Great toe pain Overweight with body mass index (BMI) 25.0-29.9 Non-smoker Flu vaccine need Trigeminal neuralgia Anxiety Heart murmur Hypothyroidism Osteoporosis Seasonal allergies Surgical History History of colonoscopy History of hysterectomy History of tubal ligation bunion removal H/O thyroidectomy Family History Mother Colon cancer Father Hypertension CVA (cerebral vascular accident) Brother Hypertension Sister Thyroid disorder Social History adopted: No household members: spouse number of children: 2 current occupational status: employed current occupation: 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 No acute concerns at this time. History of being overweight however, now down to a BMI of 25. On Contrave and tolerating medication well. Concerns about refilling prescription. Documented history of hypertension, initial and repeat blood pressure was elevated during this visit. She states that she has been planning her daughter's wedding which is in 6 weeks. Does not routinely check her numbers at home. Has also not been as active/exercising lately. History of hypothyroidism on levothyroxine, taking her medication consistently. No heat or cold intolerance. History of osteoporosis, on Prolia and continues to tolerate this well. Follows up with her dentist and had a visit 6 months ago. ROS Const Constitutional: No body ache, chills, excessive sweating, fatigue, fever(s), frequent falls, headache(s), snoring, weakness, sleep problems or change in appetite Eyes Eyes: No blurry vision, change in vision, bulging eyes, floaters, visual disturbances or Light sensitivity ENT ENT: No abnormal hearing, ear or mastoid pain, tinnitus, balance problems, nosebleed/epistaxis , nasal congestion, nasal discharge, headache(s), neck pain or sore throat Resp Respiratory: No cough, excessive phlegm production, pain on inspiration, shortness of breath, snoring or wheezing Cardio Cardiology: No chest pain at rest, chest pain with exertion, excessive sweating, shortness of breath, dyspnea on exertion, lightheadedness, orthopnea or palpitations Gastro GI: No abdominal pain, change in bowel habits, constipation, cramping, diarrhea or nausea/dyspepsia Genitourinary-Femal e: No burning urination, painful urination, urinary incontinence, urinary frequency, suprapubic fullness or si (more content not included)... Normal [facility] L506.1001on 09-07-2024 Vitamin D 25-OH 88.3 ng/mL Normal 30-100 [facility] Comment on above: Result Comment: Melody min D Status Deficiency: <20 ng/mL (50nmol/L) Insufficiency: 20-30 ng/mL (50-75 nmol/L) Sufficiency: 30-100 ng/mL (75-250 nmol/L) Toxicity: >100 ng/mL (>250 nmol/L) Performed By: #### L 506.1001, L500.4050, L100.0100, L501.9520, L500.4100 ####[facility] [id number] [place], [address] LDL calc ser/plasOrdered By: Ko Eden on 09-07-2024 LDL Cholesterol, Calculated 124 mg/dL [facility] Comment on above: Jazojtgjgz=430-828 m g/dL & Higher Mean=693 mg/dL or greater Laboratory - Chemistry and C hemistry - challengeOrdered By: Ko Eden on 09-07-2024 AST [Catalytic activity/Vol] 29 U/L <32 [facility] Lipid Profileon 09-07-2024 CHOL:HDL 3.24 Normal [facility] Comment on above: Performed By: #### L 506.1001, L500.4050, L100.0100, L501.9520, L500.4100 ####[facility] [id number] [place], [address] Cholesterol [Mass/Vol] 204 mg/dL High <=200 [facility] Comment on above: Result Comment: Chol esterol level, Desirable <200 mg/dL Borderline high cholesterol 200-239 mg/dL High cholesterol >=240 mg/dL Recommendations of the NCEP Adult Treatment Panel for the following risk-cutoff thresholds for the [place] population. Performed By: #### L 506.1001, L500.4050, L100.0100, L501.9520, L500.4100 ####[facility] [id number] [place], [address] Cholesterol in HDL [Mass/Vol] 63 mg/dL Normal [facility] Comment on above: Result Comment: Harini onal Cholesterol Education Program (NCEP) guidelines: <40 mg/dL: Low HDL-cholesterol (major risk factor for CHD) >= 60 mg/dL: High HDL-cholesterol (negative risk factor for CHD) HDL-cholesterol is affected by a number of factors, e.g. smoking, exercise, hormones, sex and age. Performed By: #### L 506.1001, L500.4050, L100.0100, L501.9520, L500.4100 ####[facility] [address] [place], [address] Cholesterol in LDL [Mass/Vol] 124 mg/dL Normal [facility] Comment on above: Result Comment: Bord pelrfa=824-941 mg/dL Higher Hwcn=265 mg/dL or greater Performed By: #### L 506.1001, L500.4050, L100.0100, L501.9520, L500.4100 ####[facility] [id number] [place], [address] Cholesterol in VLDL [Mass/Vol] 17 mg/dL Normal 5-40 [facility] Comment on above: Performed By: #### L 506.1001, L500.4050, L100.0100, L501.9520, L500.4100 ####[facility] [address] [place], [address] Triglyceride [Mass/Vol] 83 mg/dL Normal [facility] Comment on above: Result Comment: The drugs N-Acetylcysteine and Metamizole may falsely depress this assay. Normal range: <150 mg/dL Borderline High: 150-199 mg/dL High: 200-499 mg/dL Very High: >500 mg/dL Performed By: #### L 506.1001, L500.4050, L100.0100, L501.9520, L500.4100 ####[facility] [address] [place], [address] Lymphocytes Auto (Unsp spec) [#/Vol]Ordered By: Ko Eden on 09-07-2024 Lymphocytes (Bld) [#/Vol] 1.74 10*3/uL 0.83-4.5 1 [facility] Lymphocytes/100 WBC Auto (Un sp spec)Ordered By: Ko Eden on 09-07-2024 Lymphocytes/100 WBC (Bld) 36.6 % 19-41 [facility] MCV (mean corpuscular volume ) determinationOrdered By: Ko Eden on 09-07-2024 MCV (RBC) [Entitic vol] 95.4 fL 81-99 [facility] Mean corpuscular hemoglobin (MCH) determinationOrdered By: Ko Eden on 09-07-2024 MCH (RBC) [Entitic mass] 30.8 pg 27.0-32.0 [facility] Mean corpuscular hemoglobin concentration (MCHC) determinationOrdered By: Ko Eden on 09-07-2024 MCHC (RBC) [Mass/Vol] 32.3 g/dL 32-36 [facility] Mean platelet volume determi nationOrdered By: Ko Eden on 09-07-2024 Platelet mean volume (Bld) [Entitic vol] 9.9 fL 6.2-12.0 [facility] Monocyte percentageOrdered B y: Ko Eden on 09-07-2024 Monocytes/100 WBC (Bld) 10.1 % High 0-10 [facility] Neutrophil percentageOrdered By: Ko Eden on 09-07-2024 Neutrophils/100 WBC (Bld) 50.0 % 47-70 [facility] Nucleated red blood cell per centageOrdered By: Ko Eden on 09-07-2024 Nucleated RBC/100 WBC (Bld) [Ratio] 0 % 0-5 [facility] Platelet countOrdered By: Jemal Eden on 09-07-2024 Platelets (Bld) [#/Vol] 361 10*3/uL 150-450 [facility] Potassium (Unsp spec) [Mass/ Vol]Ordered By: Ko Eden on 09-07-2024 Potassium [Moles/Vol] 4.9 mmol/L 3.3-5.1 [facility] RBC Auto (Bld) [#/Vol]Ordere d By: Ko Eden on 09-07-2024 RBC (Bld) [#/Vol] 4.54 10*6/uL 4.2-5.4 [facility] Screening total cholesterol/ high density lipoprotein (HDL) cholesterol ratioOrdered By: Ko Eden on 09-07-2024 Cholesterol.total/Cholest jong in HDL [Mass ratio] 3.24 {ratio} [facility] Serum creatinine measurement (mass/volume)Ordered By: Ko Eden on 09-07-2024 Creatinine [Mass/Vol] 1.01 mg/dL 0.70-1.20 [facility] Serum globulin measurementOr dered By: Ko Eden on 09-07-2024 Globulin (S) [Mass/Vol] 2.9 g/dL 2.2-4.2 [facility] Serum glucose measurement (m ass/volume)Ordered By: Ko Eden on 09-07-2024 Glucose [Mass/Vol] 97 mg/dL 70-99 [facility] Serum or plasma alanine singh otransferase (ALT) measurementOrdered By: Ko Eden on 09-07-2024 ALT [Catalytic activity/Vol] 32 U/L <35 [facility] Serum or plasma albumin sandi urement (mass/volume)Ordered By: Ko Eden on 09-07-2024 Albumin [Mass/Vol] 4.2 g/dL 3.4-4.8 [facility] Serum or plasma albumin/glob ulin mass ratioOrdered By: Ko Eden on 09-07-2024 Albumin/Globulin [Mass ratio] 1.5 {ratio} 0.9-2.4 [facility] Serum or plasma alkaline melba sphatase measurementOrdered By: Ko Eden on 09-07-2024 ALP [Catalytic activity/Vol] 92 U/L 35-104 [facility] Serum or plasma calcium sandi urement (mass/volume)Ordered By: Ko Eden on 09-07-2024 Calcium [Mass/Vol] 10.3 mg/dL 7.6-11.0 [facility] Serum or plasma cholesterol in HDL measurement (mass/volume)Ordered By: Ko Eden on 09-07-2024 Cholesterol in HDL [Mass/Vol] 63 mg/dL >40 [facility] Comment on above: National Cholesterol Education Program (NCEP) guidelines:<40 mg/dL: Low HDL-cholesterol (major risk factor for CHD)>= 60 mg/dL: High HDL-cholesterol (negative risk factor for CHD)HDL-cholesterol is affected by a number of factors, e.g. smoking, exercise, hormones, sex and age. Serum or plasma cholesterol measurement (mass/volume)Ordered By: Ko Eden on 09-07-2024 Cholesterol [Mass/Vol] 204 mg/dL High <201 [facility] Comment on above: Cholesterol level, D esirable <200 mg/dLBorderline high cholesterol 200-239 mg/dLHigh cholesterol >=240 mg/dLRecommendations of the NCEP Adult Treatment Panel for the following risk-cutoff thresholds for the [place] population. Serum or plasma urea nitroge n measurement (mass/volume)Ordered By: Ko Eden on 09-07-2024 Urea nitrogen [Mass/Vol] 18 mg/dL 4-19 [facility] Sodium levelOrdered By: Kayden Eden on 09-07-2024 Sodium [Moles/Vol] 141 mmol/L 133-145 [facility] TSH DL <= 0.005 mIU/L QnOrde red By: Ko Eden on 09-07-2024 Thyroid Stimulating Hormone (TSH) 0.669 uIU/mL 0.300-4.200 [facility] Thyroid Stim Hormone (TSH)on 09-07-2024 TSH 0.669 uIU/mL Normal 0.300-4.200 [facility] Comment on above: Performed By: #### L 506.1001, L500.4050, L100.0100, L501.9520, L500.4100 ####[facility] [id number] [place], [address] Total proteinOrdered By: Anival Eden on 09-07-2024 Protein [Mass/Vol] 7.0 g/dL 5.9-8.4 [facility] Triglycerides measurementOrd ered By: Ko Eden on 09-07-2024 Triglyceride [Mass/Vol] 83 mg/dL <199 [facility] Comment on above: The drugs N-Acetylcy steine and Metamizole may falsely depress this assay. Normal range: <150 mg/dLBorderline High: 150-199 mg/dLHigh: 200-499 mg/dLVery High: >500 mg/dL Vitamin D, 25-hydroxyOrdered By: Ko Eden on 09-07-2024 Vitamin D 25-Hydroxy 88.3 ng/mL 30-100 [facility] Comment on above: Vitamin D StatusDefi ciency: <20 ng/mL (50nmol/L)Insufficiency: 20-30 ng/mL (50-75 nmol/L)Sufficiency: 30-100 ng/mL (75-250 nmol/L)Toxicity: >100 ng/mL (>250 nmol/L) White blood cell (WBC) count Ordered By: Ko Eden on 09-07-2024 WBC (Bld) [#/Vol] 4.8 10*3/uL 4.4-11.0 [facility] SCRN MAMM (CAD)W/NAS BILATo n 05-17-2024 SCRN MAMM (CAD)W/NAS BILAT [facility] Imaging Services [address] [place] [address] SCRN MAMM (CAD)W/NAS BILAT MR#: [id number] Acct: [id number] Name: MARLEN LARA Rep #: [id number] : 1960 F 63 From: Fly phillips MD PCP: Dr. Ko Eden MD Status: REG [facility] Study: SCRN MAMM (CAD)W/NAS BILAT Date of Exam: 04/28 07/20 Exam# [id number] Ordering Dr: Ko Eden MD -[id number] MAMMOGRAPHY - BILATERAL SCREENING REASON FOR EXAM: Female, 63 years old. Routine annual screening examination. PERTINENT HISTORY: Non-contributory. TECHNIQUE: Digital bilateral breast nas (3D mammographic acquisition) in the CC and MLO projections. 2-D mediolateral oblique (MLO) and craniocaudad (CC) views of both breasts were obtained. CAD: Full Field Digital Mammography with Computer Added Detection was performed. COMPARISON: Comparison is made with prior study November 12, 2021 and November 11, 2020. FINDINGS: Breast Composition: The breasts are heterogeneously dense, which may obscure small masses. There are no dominant masses or suspicious calcifications. No other significant abnormalities are identified. There has been no significant change since the prior study. BI/SCRN MAMM (CAD)W/NAS BILAT IMPRESSION: Stable bilateral screening mammogram. Yearly follow-up mammogram recommended. (A) ASSESSMENT CATEGORY: BIRADS Category 1: Negative. A letter regarding these results will be sent to the patient by the facility within 30 days. Approximately 10% of breast cancers are not detected by mammography. A normal mammogram should not delay biopsy of a clinically suspicious abnormality. [id number] Electronically Signed: Fly Bingham MD at 8:58 EST , CC: Dr. Ko Eden MD Griddle Cook: Signed Normal [facility] Serum or plasma thyroid stim ulating hormone (TSH) measurement (units/volume)Ordered By: Ko Eden on 07-25-2023 TSH Qn 0.75 uIU/mL 0.358-3.74 [facility] Absolute lymphocyte countOrd ered By: Ko Eden on 06-01-2023 Lymphocytes Auto (Unsp spec) [#/Vol] 0.68 10*3/uL 0.83-4.51 [facility] Basophil percentageOrdered B y: Ko Eden on 06-01-2023 Basophils/100 WBC (Bld) 0.2 % 0-1 [facility] Bilirubin [Mass/Vol] 0.40 mg/dL 0.20-1.00 [facility] Comment on above: For patients on eltr ombopag therapy, use of Dimension Vance TBIL is not recommended. Chloride [Moles/Vol] 106 mmol/L 98-107 [facility] Eosinophils/100 WBC (Bld) 0.1 % 0-5 [facility] Glucose [Mass/Vol] 104 mg/dL 74-106 [facility] Comment on above: Fasting Glucose resu lt from 100 to 125 mg/dL suggests IMPAIRED HOMEOSTASIS per A.D.A. criteria. Neutrophils (Bld) [#/Vol] 9.0 10*3/uL 2.0-7.7 [facility] Neutrophils/100 WBC (Bld) 88.4 % 47-70 [facility] Potassium [Moles/Vol] 4.7 mmol/L 3.5-5.1 [facility] Protein [Mass/Vol] 7.5 g/dL 6.4-8.2 [facility] Sodium [Moles/Vol] 137 mmol/L 136-145 [facility] WBC (Bld) [#/Vol] 10.2 10*3/uL 4.4-11.0 [facility] Blood erythrocytes count (nu mber/volume)Ordered By: Ko Eden on 06-01-2023 RBC (Bld) [#/Vol] 4.85 10*6/uL 4.2-5.4 [facility] Blood hemoglobin measurement (mass/volume)Ordered By: Ko Eden on 06-01-2023 Hemoglobin (Bld) [Mass/Vol] 14.3 g/dL 12.0-15.0 [facility] Blood lymphocytes/100 leukoc ytesOrdered By: Ko Eden on 06-01-2023 Lymphocytes/100 WBC (Bld) 6.7 % 19-41 [facility] Blood monocytes/100 leukocyt esOrdered By: Ko Eden on 06-01-2023 Monocytes/100 WBC (Bld) 4.2 % 0-10 [facility] Blood platelet mean volumeOr dered By: Ko Eden on 06-01-2023 Platelet mean volume (Bld) [Entitic vol] 9.5 fL 6.2-12.0 [facility] Determination of erythrocyte mean corpuscular volume (MCV)Ordered By: Ko Eden on 06-01-2023 MCV (RBC) [Entitic vol] 94.0 fL 81-99 [facility] Hematocrit Auto (Bld) [Volum e fraction]Ordered By: [facility]eltonneris Eden on 06-01-2023 Hematocrit (Bld) [Volume fraction] 45.6 % 37-47 [facility] Laboratory - Chemistry and C hemistry - challengeOrdered By: alejandroroderfieldneris Eden on 06-01-2023 ALP [Catalytic activity/Vol] 87 U/L 45-117 [facility] ALT [Catalytic activity/Vol] 33 U/L 13-56 [facility] CO2 [Moles/Vol] 25.0 mmol/L 21.0-32.0 [facility] Globulin (S) [Mass/Vol] 3.9 g/dL 2.2-4.2 [facility] Urea nitrogen/Creatinine [Mass ratio] 12.5 mg/mg 10-20 [facility] Laboratory - Hematology and Cell countsOrdered By: Kaydenroderfieldneris Eden on 06-01-2023 Erythrocyte distribution width (RBC) [Entitic vol] 45.1 fL 35.1-43.9 [facility] Erythrocyte distribution width (RBC) [Ratio] 13.1 % 11.6-14.6 [facility] Immature granulocytes/100 WBC (Bld) 0.400 % 0.0-0.9 [facility] Comment on above: IG% - Immature Granu locytes (promyelocytes, myelocytes and metamyelocytes) > 1% indicates that a LEFT SHIFT is Present. MCH (RBC) [Entitic mass] 29.5 pg 27.0-32.0 [facility] Nucleated RBC/100 WBC (Bld) [Ratio] 0 % 0-5 [facility] MCHC Auto (RBC) [Mass/Vol]Or dered By: Kaydenroderfieldneris Eden on 06-01-2023 MCHC (RBC) [Mass/Vol] 31.4 g/dL 32-36 [facility] No Panel InformationOrdered By: Ko Eden on 06-01-2023 Estimated GFR (MDRD) Amer 84 mL/min >60 [facility] Comment on above: GFR Calc Estimated GFR (MDRD) Non-Af Amer 69 mL/min >60 [facility] Comment on above: Non- GFR Calc Thyroid Stimulating Hormone (TSH) 0.08 uIU/mL 0.358-3.74 [facility] Vitamin D 25-Hydroxy 66.7 ng/mL [facility] Comment on above: Vitamin D 25(OH) Sta tus Range Deficiency <20 ng/mL (50nmol/L) Insufficiency 20 - 30 ng/mL (50 - 75 nmol/L) Sufficiency 30 - 100 ng/mL (75 - 250 nmol/L) Toxicity >100 ng/mL (>250 nmol/L) Platelets bldOrdered By: Anival Eden on 06-01-2023 Platelets (Bld) [#/Vol] 326 10*3/uL 150-450 [facility] Serum or plasma albumin sandi urement (mass/volume)Ordered By: Ko Eden on 06-01-2023 Albumin [Mass/Vol] 3.6 g/dL 3.2-5.0 [facility] Serum or plasma albumin/glob ulin mass ratioOrdered By: Ko Eden on 06-01-2023 Albumin/Globulin [Mass ratio] 0.9 {ratio} 0.9-2.4 [facility] Serum or plasma calcium sandi urement (mass/volume)Ordered By: Ko Eden on 06-01-2023 Calcium [Mass/Vol] 8.9 mg/dL 8.5-10.1 [facility] Serum or plasma creatinine m easurement (mass/volume)Ordered By: Ko Eden on 06-01-2023 Creatinine [Mass/Vol] 0.88 mg/dL 0.55-1.02 [facility] Comment on above: The validity of the calculated GFR & GFRAA in patients over 70 years has not been determined. Clinical correlation is essential. Serum or plasma urea nitroge n measurement (mass/volume)Ordered By: Ko Eden on 06-01-2023 Urea nitrogen [Mass/Vol] 11 mg/dL 7-18 [facility] Thin prep Papanicolaou smear with manual screeningOrdered By: Ko Eden on 06-01-2023 Thin prep Papanicolaou smear with manual screening 25 U/L 15-37 [facility] Thin prep Papanicolaou smear with manual screening 6 5-15 [facility] Absolute lymphocyte countOrd ered By: Ko Eden on 03-25-2023 Lymphocytes Auto (Unsp spec) [#/Vol] 1.98 10*3/uL 0.83-4.51 [facility] Basophil percentageOrdered B y: Ko Eden on 03-25-2023 Basophils/100 WBC (Bld) 0.4 % 0-1 [facility] Bilirubin [Mass/Vol] 0.40 mg/dL 0.20-1.00 [facility] Comment on above: For patients on eltr ombopag therapy, use of Dimension Vance TBIL is not recommended. Chloride [Moles/Vol] 107 mmol/L 98-107 [facility] Eosinophils/100 WBC (Bld) 1.5 % 0-5 [facility] Glucose [Mass/Vol] 87 mg/dL 74-106 [facility] Neutrophils (Bld) [#/Vol] 4.1 10*3/uL 2.0-7.7 [facility] Neutrophils/100 WBC (Bld) 60.1 % 47-70 [facility] Potassium [Moles/Vol] 4.7 mmol/L 3.5-5.1 [facility] Protein [Mass/Vol] 7.2 g/dL 6.4-8.2 [facility] Sodium [Moles/Vol] 139 mmol/L 136-145 [facility] WBC (Bld) [#/Vol] 6.8 10*3/uL 4.4-11.0 [facility] Blood erythrocytes count (nu mber/volume)Ordered By: Ko Eden on 03-25-2023 RBC (Bld) [#/Vol] 4.69 10*6/uL 4.2-5.4 [facility] Blood hemoglobin measurement (mass/volume)Ordered By: alejandroroderfieldneris Eden on 03-25-2023 Hemoglobin (Bld) [Mass/Vol] 14.0 g/dL 12.0-15.0 [facility] Blood lymphocytes/100 leukoc ytesOrdered By: mark Eden on 03-25-2023 Lymphocytes/100 WBC (Bld) 29.3 % 19-41 [facility] Blood monocytes/100 leukocyt esOrdered By: [facility]is Eden on 03-25-2023 Monocytes/100 WBC (Bld) 8.4 % 0-10 [facility] Blood platelet mean volumeOr dered By: alejandroroderfieldneris Eden on 03-25-2023 Platelet mean volume (Bld) [Entitic vol] 9.5 fL 6.2-12.0 [facility] [facility] Determination of erythrocyte mean corpuscular volume (MCV)Ordered By: alejandroroderfieldneris Eden on 03-25-2023 MCV (RBC) [Entitic vol] 94.7 fL 81-99 [facility] Hematocrit Auto (Bld) [Volum e fraction]Ordered By: [facility] Karey on 03-25-2023 Hematocrit (Bld) [Volume fraction] 44.4 % 37-47 [facility] Laboratory - Chemistry and C hemistry - challengeOrdered By: [facility]ton[facility]is Torresyoung on 03-25-2023 ALP [Catalytic activity/Vol] 74 U/L 45-117 [facility] ALT [Catalytic activity/Vol] 35 U/L 13-56 [facility] CO2 [Moles/Vol] 29.0 mmol/L 21.0-32.0 [facility] Globulin (S) [Mass/Vol] 3.5 g/dL 2.2-4.2 [facility] Urea nitrogen/Creatinine [Mass ratio] 20.2 mg/mg 10-20 [facility] Laboratory - Hematology and Cell countsOrdered By: [facility] Braseltonneris Eden on 03-25-2023 Erythrocyte distribution width (RBC) [Entitic vol] 43.3 fL 35.1-43.9 [facility] Erythrocyte distribution width (RBC) [Ratio] 12.5 % 11.6-14.6 [facility] Immature granulocytes/100 WBC (Bld) 0.300 % 0.0-0.9 [facility] Comment on above: IG% - Immature Granu locytes (promyelocytes, myelocytes and metamyelocytes) > 1% indicates that a LEFT SHIFT is Present. MCH (RBC) [Entitic mass] 29.9 pg 27.0-32.0 [facility] Nucleated RBC/100 WBC (Bld) [Ratio] 0 % 0-5 [facility] MCHC Auto (RBC) [Mass/Vol]Or dered By: Ko Eden on 03-25-2023 MCHC (RBC) [Mass/Vol] 31.5 g/dL 32-36 [facility] No Panel InformationOrdered By: Ko Eden on 03-25-2023 Estimated GFR (MDRD) Amer 89 mL/min >60 [facility] Comment on above: GFR Calc Estimated GFR (MDRD) Non-Af Amer 73 mL/min >60 [facility] Comment on above: Non- GFR Calc Thyroid Stimulating Hormone (TSH) 0.34 uIU/mL 0.358-3.74 [facility] Platelets bldOrdered By: Anival Eden on 03-25-2023 Platelets (Bld) [#/Vol] 397 10*3/uL 150-450 [facility] Serum or plasma albumin sandi urement (mass/volume)Ordered By: Ko Eden on 03-25-2023 Albumin [Mass/Vol] 3.7 g/dL 3.2-5.0 [facility] Serum or plasma albumin/glob ulin mass ratioOrdered By: Ko Eden on 03-25-2023 Albumin/Globulin [Mass ratio] 1.1 {ratio} 0.9-2.4 [facility] Serum or plasma calcium sandi urement (mass/volume)Ordered By: Ko Eden on 03-25-2023 Calcium [Mass/Vol] 9.1 mg/dL 8.5-10.1 [facility] Serum or plasma creatinine m easurement (mass/volume)Ordered By: Ko Eden on 03-25-2023 Creatinine [Mass/Vol] 0.84 mg/dL 0.55-1.02 [facility] Comment on above: The validity of the calculated GFR & GFRAA in patients over 70 years has not been determined. Clinical correlation is essential. Serum or plasma urea nitroge n measurement (mass/volume)Ordered By: Ko Eden on 03-25-2023 Urea nitrogen [Mass/Vol] 17 mg/dL 7-18 [facility] Thin prep Papanicolaou smear with manual screeningOrdered By: Ko Eden on 03-25-2023 Thin prep Papanicolaou smear with manual screening 21 U/L 15-37 [facility] Thin prep Papanicolaou smear with manual screening 3 5-15 [facility] Absolute lymphocyte countOrd ered By: Bo Barton on 09-17-2022 Lymphocytes Auto (Unsp spec) [#/Vol] 1.66 10*3/uL 0.83-4.51 [facility] Basophil percentageOrdered B y: Bo Barton on 09-17-2022 Basophils/100 WBC (Bld) 0.7 % 0-1 [facility] Bilirubin [Mass/Vol] 0.30 mg/dL 0.20-1.00 [facility] Comment on above: For patients on eltr ombopag therapy, use of Dimension Vance TBIL is not recommended. Chloride [Moles/Vol] 106 mmol/L 98-107 [facility] Cholesterol [Mass/Vol] 208 mg/dL <200 [facility] Comment on above: <200 mg/dL Desirable 200-240 mg/dL Borderline >240 mg/dL High Risk Eosinophils/100 WBC (Bld) 1.8 % 0-5 [facility] Glucose [Mass/Vol] 87 mg/dL 74-106 [facility] Neutrophils (Bld) [#/Vol] 3.2 10*3/uL 2.0-7.7 [facility] Neutrophils/100 WBC (Bld) 58.1 % 47-70 [facility] Potassium [Moles/Vol] 4.4 mmol/L 3.5-5.1 [facility] Protein [Mass/Vol] 7.3 g/dL 6.4-8.2 [facility] Sodium [Moles/Vol] 138 mmol/L 136-145 [facility] Triglyceride [Mass/Vol] 66 mg/dL <199 [facility] Comment on above: The drugs N-Acetylcy steine and Metamizole may falsely depress this assay.Serum Triglycerides Reference Interval Normal <150 mg/dL Borderline high 150 - 199 mg/dL High 200 - 499 mg/dL Very High > or = 500 mg/dL WBC (Bld) [#/Vol] 5.5 10*3/uL 4.4-11.0 [facility] Blood erythrocytes count (nu mber/volume)Ordered By: Bo Barton on 09-17-2022 RBC (Bld) [#/Vol] 4.60 10*6/uL 4.2-5.4 [facility] Blood hemoglobin measurement (mass/volume)Ordered By: Bo Barton on 09-17-2022 Hemoglobin (Bld) [Mass/Vol] 14.1 g/dL 12.0-15.0 [facility] Blood lymphocytes/100 leukoc ytesOrdered By: Bo Barton on 09-17-2022 Lymphocytes/100 WBC (Bld) 30.3 % 19-41 [facility] Blood monocytes/100 leukocyt esOrdered By: Bo Barton on 09-17-2022 Monocytes/100 WBC (Bld) 8.9 % 0-10 [facility] Blood platelet mean volumeOr dered By: Bo Barton on 09-17-2022 Platelet mean volume (Bld) [Entitic vol] 9.7 fL 6.2-12.0 [facility] Determination of erythrocyte mean corpuscular volume (MCV)Ordered By: Bo Barton on 09-17-2022 MCV (RBC) [Entitic vol] 95.2 fL 81-99 [facility] Hematocrit Auto (Bld) [Volum e fraction]Ordered By: Bo Barton on 09-17-2022 Hematocrit (Bld) [Volume fraction] 43.8 % 37-47 [facility] Laboratory - Chemistry and C hemistry - challengeOrdered By: Bo Barton on 09-17-2022 ALP [Catalytic activity/Vol] 71 U/L 45-117 [facility] ALT [Catalytic activity/Vol] 38 U/L 13-56 [facility] CO2 [Moles/Vol] 26.0 mmol/L 21.0-32.0 [facility] Globulin (S) [Mass/Vol] 3.7 g/dL 2.2-4.2 [facility] Urea nitrogen/Creatinine [Mass ratio] 23.0 mg/mg 10-20 [facility] Laboratory - Hematology and Cell countsOrdered By: Bo Barton on 09-17-2022 Erythrocyte distribution width (RBC) [Entitic vol] 46.0 fL 35.1-43.9 [facility] Erythrocyte distribution width (RBC) [Ratio] 13.0 % 11.6-14.6 [facility] Immature granulocytes/100 WBC (Bld) 0.200 % 0.0-0.9 [facility] Comment on above: IG% - Immature Granu locytes (promyelocytes, myelocytes and metamyelocytes) > 1% indicates that a LEFT SHIFT is Present. MCH (RBC) [Entitic mass] 30.7 pg 27.0-32.0 [facility] Nucleated RBC/100 WBC (Bld) [Ratio] 0 % 0-5 [facility] MCHC Auto (RBC) [Mass/Vol]Or dered By: Bo Barton on 09-17-2022 MCHC (RBC) [Mass/Vol] 32.2 g/dL 32-36 [facility] No Panel InformationOrdered By: Bo Barton on 09-17-2022 Estimated GFR (MDRD) Amer 85 mL/min >60 [facility] Comment on above: GFR Calc Estimated GFR (MDRD) Non-Af Amer 71 mL/min >60 [facility] Comment on above: Non- GFR Calc Thyroid Stimulating Hormone (TSH) 11.10 uIU/mL 0.358-3.74 [facility] Platelets bldOrdered By: Melida Barton on 09-17-2022 Platelets (Bld) [#/Vol] 327 10*3/uL 150-450 [facility] Serum or plasma albumin sandi urement (mass/volume)Ordered By: Bo Barton on 09-17-2022 Albumin [Mass/Vol] 3.6 g/dL 3.2-5.0 [facility] Serum or plasma albumin/glob ulin mass ratioOrdered By: Bo Barton on 09-17-2022 Albumin/Globulin [Mass ratio] 1.0 {ratio} 0.9-2.4 [facility] Serum or plasma calcium sandi urement (mass/volume)Ordered By: Bo Barton on 09-17-2022 Calcium [Mass/Vol] 9.6 mg/dL 8.5-10.1 [facility] Serum or plasma cholesterol in HDL measurement (mass/volume)Ordered By: Bo Barton on 09-17-2022 Cholesterol in HDL [Mass/Vol] 67 mg/dL >40 [facility] Comment on above: The drugs N-Acetylcy steine and Metamizole may falsely depress this assay. Reference Range HDL <40 mg/dL Low HDL Cholesterol HDL >or= 60 mg/dL High HDL Cholesterol Serum or plasma cholesterol in VLDL measurement (mass/volume)Ordered By: Bo Barton on 09-17-2022 Cholesterol in VLDL [Mass/Vol] 13 mg/dL 5-40 [facility] Serum or plasma creatinine m easurement (mass/volume)Ordered By: Bo Barton on 09-17-2022 Creatinine [Mass/Vol] 0.87 mg/dL 0.55-1.02 [facility] Comment on above: The validity of the calculated GFR & GFRAA in patients over 70 years has not been determined. Clinical correlation is essential. Serum or plasma low density lipoprotein (LDL) cholesterol measurement (mass/volume)Ordered By: Bo Barton on 09-17-2022 Cholesterol in LDL [Mass/Vol] 128 mg/dL 0-130 [facility] Serum or plasma urea nitroge n measurement (mass/volume)Ordered By: Bo Barton on 09-17-2022 Urea nitrogen [Mass/Vol] 20 mg/dL 7-18 [facility] Thin prep Papanicolaou smear with manual screeningOrdered By: Bo Barton on 09-17-2022 Thin prep Papanicolaou smear with manual screening 26 U/L 15-37 [facility] Thin prep Papanicolaou smear with manual screening 6 5-15 [facility] Absolute lymphocyte counton 09-01-2021 Lymphocytes Auto (Unsp spec) [#/Vol] 1.81 10*3/uL 0.83-4.51 [facility] Work Phone: Basophil percentageon 2021 Basophils/100 WBC (Bld) 0.4 % 0-1 [facility] Work Phone: Bilirubin [Mass/Vol] 0.30 mg/dL 0.20-1.00 [facility] Work Phone: Comment on above: For patients on eltr ombopag therapy, use of Dimension Vance TBIL is not recommended. Chloride [Moles/Vol] 108 mmol/L 98-107 [facility] Work Phone: Cholesterol [Mass/Vol] 191 mg/dL <200 [facility] Work Phone: Comment on above: <200 mg/dL Desirable 200-240 mg/dL Borderline >240 mg/dL High Risk Eosinophils/100 WBC (Bld) 1.2 % 0-5 [facility] Work Phone: Glucose [Mass/Vol] 77 mg/dL 74-106 [facility] Work Phone: Neutrophils (Bld) [#/Vol] 5.5 10*3/uL 2.0-7.7 [facility] Work Phone: Neutrophils/100 WBC (Bld) 67.8 % 47-70 [facility] Work Phone: Potassium [Moles/Vol] 5.0 mmol/L 3.5-5.1 [facility] Work Phone: Protein [Mass/Vol] 7.2 g/dL 6.4-8.2 [facility] Work Phone: Sodium [Moles/Vol] 137 mmol/L 136-145 [facility] Work Phone: Triglyceride [Mass/Vol] 65 mg/dL [facility] Work Phone: Comment on above: The drugs N-Acetylcy steine and Metamizole may falsely depress this assay.Serum Triglycerides Reference Interval Normal <150 mg/dL Borderline high 150 - 199 mg/dL High 200 - 499 mg/dL Very High > or = 500 mg/dL WBC (Bld) [#/Vol] 8.1 10*3/uL 4.4-11.0 [facility] Blood erythrocytes count (nu mber/volume)on 09-01-2021 RBC (Bld) [#/Vol] 4.76 10*6/uL 4.2-5.4 [facility] Blood hemoglobin measurement (mass/volume)on 09-01-2021 Hemoglobin (Bld) [Mass/Vol] 14.9 g/dL 12.0-15.0 [facility] Work Phone: Blood lymphocytes/100 leukoc yteson 09-01-2021 Lymphocytes/100 WBC (Bld) 22.5 % 19-41 [facility] Work Phone: Blood monocytes/100 leukocyt eson 09-01-2021 Monocytes/100 WBC (Bld) 7.9 % 0-10 [facility] Work Phone: Blood platelet mean volumeon 09-01-2021 Platelet mean volume (Bld) [Entitic vol] 9.6 fL 6.2-12.0 [facility] Work Phone: Determination of erythrocyte mean corpuscular volume (MCV)on 09-01-2021 MCV (RBC) [Entitic vol] 96.8 fL 81-99 [facility] Work Phone: Hematocrit Auto (Bld) [Volum e fraction]on 09-01-2021 Hematocrit (Bld) [Volume fraction] 46.1 % 37-47 [facility] Work Phone: Laboratory - Chemistry and C hemistry - challengeon 09-01-2021 ALP [Catalytic activity/Vol] 68 U/L 45-117 [facility] Work Phone: ALT [Catalytic activity/Vol] 32 U/L 13-56 [facility] Work Phone: CO2 [Moles/Vol] 28.0 mmol/L 21.0-32.0 [facility] Work Phone: Globulin (S) [Mass/Vol] 3.7 g/dL 2.2-4.2 [facility] Work Phone: Urea nitrogen/Creatinine [Mass ratio] 24.0 mg/mg 10-20 [facility] Work Phone: Laboratory - Hematology and Cell countson 09-01-2021 Erythrocyte distribution width (RBC) [Entitic vol] 45.7 fL 35.1-43.9 [facility] Work Phone: Erythrocyte distribution width (RBC) [Ratio] 12.9 % 11.6-14.6 [facility] Work Phone: Immature granulocytes/100 WBC (Bld) 0.200 % 0.0-0.9 [facility] Work Phone: Comment on above: IG% - Immature Granu locytes (promyelocytes, myelocytes and metamyelocytes) > 1% indicates that a LEFT SHIFT is Present. MCH (RBC) [Entitic mass] 31.3 pg 27.0-32.0 [facility] Work Phone: Nucleated RBC/100 WBC (Bld) [Ratio] 0 % 0-5 [facility] Work Phone: MCHC Auto (RBC) [Mass/Vol]on 09-01-2021 MCHC (RBC) [Mass/Vol] 32.3 g/dL 32-36 [facility] Work Phone: No Panel Informationon 09-01 Estimated GFR (MDRD) Amer 76 mL/min >60 [facility] Work Phone: Comment on above: GFR Calc Estimated GFR (MDRD) Non-Af Amer 63 mL/min >60 [facility] Work Phone: Comment on above: Non- GFR Calc Thyroid Stimulating Hormone (TSH) 0.73 uIU/mL 0.358-3.74 [facility] Work Phone: Platelets bldon 09-01-2021 Platelets (Bld) [#/Vol] 369 10*3/uL 150-450 [facility] Work Phone: Serum or plasma albumin sandi urement (mass/volume)on 09-01-2021 Albumin [Mass/Vol] 3.5 g/dL 3.2-5.0 [facility] Work Phone: Serum or plasma albumin/glob ulin mass ratioon 09-01-2021 Albumin/Globulin [Mass ratio] 0.9 {ratio} 0.9-2.4 [facility] Work Phone: Serum or plasma calcium sandi urement (mass/volume)on 09-01-2021 Calcium [Mass/Vol] 10.1 mg/dL 8.5-10.1 [facility] Work Phone: Serum or plasma cholesterol in HDL measurement (mass/volume)on 09-01-2021 Cholesterol in HDL [Mass/Vol] 58 mg/dL [facility] Work Phone: Comment on above: The drugs N-Acetylcy steine and Metamizole may falsely depress this assay. Reference Range HDL <40 mg/dL Low HDL Cholesterol HDL >or= 60 mg/dL High HDL Cholesterol Serum or plasma cholesterol in VLDL measurement (mass/volume)on 09-01-2021 Cholesterol in VLDL [Mass/Vol] 13 mg/dL 5-40 [facility] Work Phone: Serum or plasma creatinine m easurement (mass/volume)on 09-01-2021 Creatinine [Mass/Vol] 0.96 mg/dL 0.55-1.02 [facility] Work Phone: Comment on above: The validity of the calculated GFR & GFRAA in patients over 70 years has not been determined. Clinical correlation is essential. Serum or plasma low density lipoprotein (LDL) cholesterol measurement (mass/volume)on 09-01-2021 Cholesterol in LDL [Mass/Vol] 120 mg/dL 0-130 [facility] Work Phone: Serum or plasma urea nitroge n measurement (mass/volume)on 09-01-2021 Urea nitrogen [Mass/Vol] 23 mg/dL 7-18 [facility] Work Phone: Thin prep Papanicolaou smear with manual screeningon 09-01-2021 Thin prep Papanicolaou smear with manual screening 26 U/L 15-37 [facility] Work Phone: Thin prep Papanicolaou smear with manual screening 1 5-15 [facility] Work Phone: CNOVon 04-14-2019 CNOV Office Visit ([facility]) ---- MARLEN LARA ([id number]) 1960 F Date Time Provider [facility] During your visit today, we recorded the following information about you: Referring Provider: SELF [[id number]] Allergies As of Date: 04/14/2019 Noted Allergy Reaction NEURONTIN (GABAPENTIN) 08/09/2005 4 - Hives Date Reviewed: 04/14/2019 Reviewed by: Ysabel Robb Ma - Fully Assessed Reason for Visit: No Show [[id number]] Reason For Visit History Recorded Primary Visit Diagnosis:NO SHOW Prescriptions as of 04/14/2019 Sig: ALENDRONATE 70 MG TABLET Take 1 tablet by mouth once e* TRIAMCINOLONE ACETONIDE 55 MC* Use 2 Sprays in the nose once* LEVOTHYROXINE 125 MCG TABLET Take 1 tablet by mouth daily * CITALOPRAM 20 MG TABLET Take 0.5 tablets by mouth onc* More... 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] INVALID FOR* Hypothyroidism [E03.9] INVALID FOR*03/07/2015 Hypovitaminosis D [E55.9] INVALID FOR* Graves disease [E05.00] INVALID FOR* Stress and adjustment reaction [F43.29] INVALID FOR*03/07/2015 Depressive disorder, not elsewhere classified [*INVALID FOR* Special screening for malignant neoplasms, colo*INVALID FOR* Depression [F32.9] INVALID FOR* Osteoporosis [M81.0] INVALID FOR* Encounter Status:Closed by RAIMUNDO BROWNING CMA on 04/25/19 Normal [facility] Vital Signs Date Time Vital Sign Value Performing Clinician Venkat garcia 03-28-2025 07:43-0400 Body height 172.[address] Ko Eden MD Work Phone: [facility] 03-28-2025 07:43-0400 Body mass index (BMI) [Ratio] 25.7 kg/m2 Dr. Ko Eden MD Work Phone: [facility] 03-28-2025 07:43-0400 Body temperature 98.3 [degF] Dr. Ko Eden MD Work Phone: [facility] 03-28-2025 07:43-0400 Body weight 76.[address] Ko Eden MD Work Phone: [facility] 03-28-2025 07:43-0400 Diastolic blood pressure 80 mm[Hg] Dr. Ko Eden MD Work Phone: [facility] 03-28-2025 07:43-0400 Heart rate 80 /min Dr. Ko Eden MD Work Phone: [facility] 03-28-2025 07:43-0400 Respiratory rate 16 /min Dr. Ko Eden MD Work Phone: [facility] 03-28-2025 07:43-0400 SaO2% (BldA) [Mass fraction] 98 % Dr. Ko Eden MD Work Phone: [facility] 03-28-2025 07:43-0400 Systolic blood pressure 118 mm[Hg] Dr. Ko Eden MD Work Phone: [facility] 09-07-2024 08:28-0400 Body height 172.[address] Ko Eden MD Work Phone: [facility] 09-07-2024 08:28-0400 Body mass index (BMI) [Ratio] 25 kg/m2 Dr. Ko Eden MD Work Phone: [facility] 09-07-2024 08:28-0400 Body temperature 97.7 [degF] Dr. Ko Eden MD Work Phone: [facility] 09-07-2024 08:28-0400 Body weight 74.[address] Ko Eden MD Work Phone: [facility] 09-07-2024 08:28-0400 Diastolic blood pressure 92 mm[Hg] Dr. Ko Eden MD Work Phone: [facility] 09-07-2024 08:28-0400 Heart rate 79 /min Dr. Ko Eden MD Work Phone: [facility] 09-07-2024 08:28-0400 Respiratory rate 16 /min Dr. Ko Eden MD Work Phone: [facility] 09-07-2024 08:28-0400 SaO2% (BldA) [Mass fraction] 99 % Dr. Ko Eden MD Work Phone: [facility] 09-07-2024 08:28-0400 Systolic blood pressure 132 mm[Hg] Dr. Ko Eden MD Work Phone: [facility] 06-01-2023 09:43-0500 Body height 172.[address] Ko Eden Work Phone: [facility] 06-01-2023 09:43-0500 Body mass index (BMI) [Ratio] 26.2 kg/m2 Dr. Ko Eden Work Phone: [facility] 06-01-2023 09:43-0500 Body temperature 97.7 [degF] Dr. Ko Eden Work Phone: [facility] 06-01-2023 09:43-0500 Body weight 78.[address] Ko Eden Work Phone: [facility] 06-01-2023 09:43-0500 Diastolic blood pressure 72 mm[Hg] Dr. Ko Eden Work Phone: [facility] 06-01-2023 09:43-0500 Heart rate 76 /min Dr. Ko Eden Work Phone: [facility] 06-01-2023 09:43-0500 Respiratory rate 16 /min Dr. Ko Eden Work Phone: [facility] 06-01-2023 09:43-0500 Systolic blood pressure 122 mm[Hg] Dr. Ko Eden Work Phone: [facility] 03-25-2023 08:01-0400 Body mass index (BMI) [Ratio] 27.1 kg/m2 Dr. Ko Eden Work Phone: [facility] 03-25-2023 07:56-0400 Body height 172.[address] Ko Eden Work Phone: [facility] 03-25-2023 07:56-0400 Body temperature 95.3 [degF] Dr. Ko Eden Work Phone: [facility] 03-25-2023 07:56-0400 Body weight 80.[address] Ko Eden Work Phone: [facility] 03-25-2023 07:56-0400 Diastolic blood pressure 82 mm[Hg] Dr. Ko Eden Work Phone: [facility] 03-25-2023 07:56-0400 Heart rate 51 /min Dr. Ko Eden Work Phone: [facility] 03-25-2023 07:56-0400 Respiratory rate 18 /min Dr. Ko Eden Work Phone: [facility] 03-25-2023 07:56-0400 SaO2% (BldA) [Mass fraction] 98 % Dr. Ko Eden Work Phone: [facility] 03-25-2023 07:56-0400 Systolic blood pressure 122 mm[Hg] Dr. Ko Eden Work Phone: [facility] 09-17-2022 08:05-0400 Body height 172.[address] Ko Eden Work Phone: [facility] 09-17-2022 08:05-0400 Body mass index (BMI) [Ratio] 26.4 kg/m2 Dr. Ko Eden Work Phone: [facility] 09-17-2022 08:05-0400 Body temperature 96.6 [degF] Dr. Ko Eden Work Phone: [facility] 09-17-2022 08:05-0400 Body weight 78.[address] Ko Eden Work Phone: [facility] 09-17-2022 08:05-0400 Diastolic blood pressure 86 mm[Hg] Dr. Ko Eden Work Phone: [facility] 09-17-2022 08:05-0400 Heart rate 75 /min Dr. Ko Eden Work Phone: [facility] 09-17-2022 08:05-0400 Respiratory rate 18 /min Dr. Ko Eden Work Phone: [facility] 09-17-2022 08:05-0400 SaO2% (BldA) [Mass fraction] 99 % Dr. Ko Eden Work Phone: [facility] 09-17-2022 08:05-0400 Systolic blood pressure 132 mm[Hg] Dr. Ko Eden Work Phone: [facility] 05-28-2022 09:46-0500 Body temperature 99.2 [degF] Dr. Ko Eden Work Phone: [facility] 05-28-2022 09:46-0500 Diastolic blood pressure 75 mm[Hg] Dr. Ko Eden Work Phone: [facility] 05-28-2022 09:46-0500 Heart rate 77 /min Dr. Ko Eden Work Phone: [facility] 05-28-2022 09:46-0500 Respiratory rate 16 /min Dr. Ko Eden Work Phone: [facility] 05-28-2022 09:46-0500 SaO2% (BldA) [Mass fraction] 97 % Dr. Ko Eden Work Phone: [facility] 05-28-2022 09:46-0500 Systolic blood pressure 96 mm[Hg] Dr. Ko Eden Work Phone: [facility] 05-28-2022 08:22-0500 Body mass index (BMI) [Ratio] 25.1 kg/m2 Dr. Ko Eden Work Phone: [facility] 05-28-2022 08:22-0500 Body weight [address] Ko Eden Work Phone: [facility] 09-01-2021 07:12-0500 Body height 172.[address] Ko Eden Work Phone: [facility] Work Phone: 09-01-2021 07:12-0500 Body mass index (BMI) [Ratio] 25.9 kg/m2 Dr. Ko Eden Work Phone: [facility] Work Phone: 09-01-2021 07:12-0500 Body temperature 96.2 [degF] Dr. Ko Eden Work Phone: [facility] Work Phone: 09-01-2021 07:12-0500 Body weight 77.[address] Ko Eden Work Phone: [facility] Work Phone: 09-01-2021 07:12-0500 Diastolic blood pressure 62 mm[Hg] Dr. Ko Eden Work Phone: [facility] Work Phone: 09-01-2021 07:12-0500 Heart rate 84 /min Dr. Ko Eden Work Phone: [facility] Work Phone: 09-01-2021 07:12-0500 Respiratory rate 16 /min Dr. Ko Eden Work Phone: [facility] Work Phone: 09-01-2021 07:12-0500 SaO2% (BldA) [Mass fraction] 98 % Dr. Ko Eden Work Phone: [facility] Work Phone: 09-01-2021 07:12-0500 Systolic blood pressure 100 mm[Hg] Dr. Ko Eden Work Phone: [facility] Work Phone: Encounters Encounter Date Encounter Type Care Provider Facility Start: 05-07-2025 End: 05-07-2025 ambulatory Ko Eden Facility:[facility] Start: 04-16-2025 End: 04-16-2025 ambulatory Ilir Miller Angie Facility:[facility] Start: 03-28-2025 End: 03-28-2025 Patient encounter procedure Mary Mabry REPULPING SUPERVISOR-C -[facility] Work Phone: Start: 03-28-2025 End: 03-28-[address] Ko Eden MD Work Phone: [facility] Start: 03-28-2025 End: 03-28-2025 ambulatory Mary Mabry Facility:[facility] Start: 10-19-2024 End: 10-19-2024 ambulatory [facility] [address] Facility:[facility] Start: 09-18-2024 Encounter for genera l adult medical examination without abnormal findings [facility] Start: 09-07-2024 End: 09-07-[address] Ko Eden MD -[facility] Work Phone: Start: 09-07-2024 End: 09-07-[address] Ko Eden MD Work Phone: [facility] Work Phone: Start: 09-07-2024 End: 09-07-2024 ambulatory [facility] [address] Facility:[facility] Start: 05-17-2024 End: 05-17-2024 ambulatory [facility] [address] Facility:[facility] Start: 04-23-[address] Ko Eden MD Work Phone: [facility] Start: 07-25-2023 End: 07-25-[address] Ko Eden Work Phone: [facility] Work Phone: Start: 07-25-2023 End: 07-25-[address] Ko Eden Work Phone: [facility] Work Phone: Start: 06-01-2023 End: 06-01-[address] Ko Eden Work Phone: [facility] Work Phone: Start: 06-01-2023 End: 06-01-[address] Ko Eden Work Phone: [facility] Work Phone: Start: 04-28-2023 End: 04-28-[address] Ko Eden Work Phone: [facility] Work Phone: Start: 04-28-2023 End: 04-28-[address] Ko Eden Work Phone: [facility]-Outpatient Bone Densitometry Work Phone: Start: 03-25-2023 End: 03-25-[address] Ko Eden Work Phone: [facility] Internal [facility] Work Phone: Start: 01-20-2023 End: 01-20-[address] Ko Eden Work Phone: [facility] Internal [facility] Work Phone: Start: 09-17-2022 End: 09-17-[address] Ko Eden Work Phone: [facility] Work Phone: Start: 09-17-2022 End: 09-17-[address] Ko Eden Work Phone: [facility] Start: 07-14-2022 End: 07-14-[address] Ko Eden Work Phone: [facility] Internal [facility] Start: 05-28-2022 Non-patient / Non-visit Dr. Jemal Eden Work Phone: [facility] Start: 05-28-2022 End: 05-28-2022 Admission to same day surgery center Dr. Ko Eden Work Phone: [facility]-Endoscopy Start: 11-12-2021 End: 11-12-[address] Ko Eden Work Phone: [facility]-Outpatient Breast Imaging Start: 09-01-2021 End: 09-01-[address] Ko Eden Work Phone: [facility]-Laboratory, [facility] Procedures Date Procedure Procedure Detail Performing Clinician Start: 04-28-2023 Dual energy X-ray absorptiometry Dr. Ko Eden Work Phone: Start: 11-12-2021 Screening mammography Emre Eden Work Phone: Plan of Treatment Date Care Activity Detail Author Start: 03-28-2025 T4 free measurement [facility] Start: 03-28-2025 Thyroid stimulating hormone measurement [facility] Start: 03-28-2025 Triiodothyronine, free measurement [facility] Start: 03-28-2025 [facility] Start: 05-28-2022 Colonoscopy flx dx w/collj spec when pfrmd DIAGNOSTIC COLONOSCOPY [facility] Start: 05-28-2022 Patient discharge [facility] CBC W Auto Different ial panel - Blood [facility] Comprehensive metabo lic 2000 panel - Serum or Plasma [facility] Patient referral [facility] Work Phone: Immunizations Immunization Date Immunization Notes Care Provider Fa cility 04-16-2024 influenza, injectabl e, quadrivalent, preservative free Dr. Ko Eden MD Work Phone: [facility] 03-25-2023 influenza, injectabl e, quadrivalent, preservative free Dr. Ko Eden Work Phone: [facility] Payers Date Payer Category Payer Self-pay [id number] 2011 Private Health Insurance [id number] 2006 [id number] Unknown [id number] Unknown [id number] [id number] Unknown [id number] 2.16.8 [id number] Unknown [id number] 2.16.8 [id number] Unknown [id number] 2.16.8 [id number] Unknown [id number] 2.16.8 [id number] Unknown [id number] 2.16.8 [id number] Unknown [id number] 2.16.8 [id number] Unknown [id number] 2.16.8 [id number] Social History Date Type Detail Facility Start: 09-01-2021 End: 07-25-2023 Tobacco smoking status NHIS Unknown if ever smoked [facility] Start: 12-07-2018 Non-smoker [facility] Start: 1960 Sex Assigned At Female [facility] Start: 04-23-2024 Tobacco smoking status NHIS Never smoked tobacco (finding) [facility] Start: 09-18-2024 Sex Female (finding) [facility] Sex Female [facility] NEGATED: Highlighted row [facility] Medical Equipment Procedure Code Equipment Code Equipment Origin al Text Equipment Identifier Dates SLING, ALTIS VAGINAL FDA Star t: 12-14-2018 SLING, ALTIS VAGINAL FDA Star t: 12-14-2018 SLING, ALTIS VAGINAL FDA Star t: 12-14-2018 SLING, ALTIS VAGINAL FDA Star t: 12-14-2018 SLING, ALTIS VAGINAL FDA Star t: 12-14-2018 SLING, ALTIS VAGINAL FDA Star t: 12-14-2018 SLING, ALTIS VAGINAL FDA Star t: 12-14-2018 Goals Date Patient Goal Desired Activity /State Mental Status Date Assessment Result Facility 05-28-2022 Cognitive function Touch/Shaking [facility] Work Phone: Evaluation note 09-07-2024 Note Date & Type Note Facility 09-07-2024 Evaluation note Diagnosis Onset Date Resolution Elevated blood pressure reading acute September 07, 2024 8:12am Hypothyroidism chronic August 8:12am Osteoporosis chronic September 07, 2024 8:12am Overweight with body mass index (BMI) 25.0-29.9 chronic September 07, 2024 8:12am [facility] Work Phone: Evaluation note Note Date & Type Note Facility Evaluation note Diagnosis Onset Date Depression with anxiety business analyst intern elaine Hypothyroidism chronic Osteoporosis [facility] Work Phone: Evaluation note Note Date & Type Note Facility Evaluation note Diagnosis Onset Date Encounter for screening for malignant neoplasm of colon acute Osteoporosis chronic Depression with anxiety business analyst intern elaine Hypothyroidism chronic Osteoporosis chronic Overweight (BMI 25.0-29.9) n oneactive [facility] Work Phone: Evaluation note Note Date & Type Note Facility Evaluation note Diagnosis Onset Date Osteoporosis chronic Flu vaccine need acute Depression with anxiety business analyst intern elaine Hypothyroidism chronic Osteoporosis chronic Overweight with body mass in dex (BMI) 25.0-29.9 [facility] Work Phone: Evaluation note Note Date & Type Note Facility Evaluation note Diagnosis Onset Date Flu vaccine need acute Depression with anxiety business analyst intern elaine Hypothyroidism chronic Osteoporosis chronic Overweight with body mass in dex (BMI) 25.0-29.9 chronic Depression with anxiety business analyst intern elaine Hypothyroidism chronic Osteoporosis chronic Overweight with body mass in dex (BMI) 25.0-29.9 [facility] Work Phone: Evaluation note Note Date & Type Note Facility Evaluation note Diagnosis Onset Date Depression with anxiety business analyst intern elaine Hypothyroidism chronic Osteoporosis chronic Overweight with body mass in dex (BMI) 25.0-29.9 chronic Osteoporosis chronic [facility] Work Phone: Evaluation note Note Date & Type Note Facility Evaluation note No assessment information availa bhakti [facility] Work Phone: Reason for referral (narrative) Note Date & Type Note Facility Reason for referral (narrative) No reason for referral information available [facility] Work Phone: Summary Purpose Family History No Family History Records Found Relationship Condition Age at Onset Recorded Date/T chung mother Malignant neoplasm of colon Unknown father Hypertension Unknown Cerebrovascular accident (CVA) Unknown brother Hypertension Unknown sister Disorder of thyroid Unknown Advance Directives No Advanced Directives Records Found Advance Directive Response Recorded Date/ Time Living Will No April 14 9:04am Power of Trailhead Maintenance Worker No April 14, 2019 9:04am Advance Directive Response Recorded Date/ Time Living Will No July 14 3:12pm Power of Trailhead Maintenance Worker No July 14, 2022 3:12pm Advance Directive Response Recorded Date/ Time Living Will No July 14 2:12pm Power of Trailhead Maintenance Worker No July 14, 2022 2:12pm Advance Directive Response Recorded Date/ Time Living Will No July 14 3:12pm Do you have a Healthcare Power of Trailhead Maintenance Worker? No July 14, 2022 3:12pm Chief Complaint and Reason for Visit Chief Complaint 6 MO FU SCREENING Reason for Visit Depression with anxi ety Hypothyroidism Osteoporosis Chief Complaint PROLIA 6 M FU Reason for Visit Encounter for screen ing for malignant neoplasm of colon Osteoporosis Depression with anxiety Hypothyroidism Osteoporosis Overweight (BMI 25.0-29.9) Chief Complaint PROLIA 6 M FU SCREEN Reason for Visit Osteoporosis Flu vaccine need Depression with anxiety Hypothyroidism Osteoporosis Overweight with body mass index (BMI) 25.0-29.9 Chief Complaint 6 M FU SCREEN 2 M FU Reason for Visit Flu vaccine need Depression with anxiety Hypothyroidism Osteoporosis Overweight with body mass index (BMI) 25.0-29.9 Depression with anxiety Hypothyroidism Osteoporosis Overweight with body mass index (BMI) 25.0-29.9 Chief Complaint SCREEN 2 M FU PROLIA Reason for Visit Depression with anxi ety Hypothyroidism Osteoporosis Overweight with body mass index (BMI) 25.0-29.9 Osteoporosis Chief Complaint Admit Date 3 M FU September 07, 2024 8:1 2am Reason for Visit Admit Date Elevated blood pressure reading September 072024 8:12am Hypothyroidism September 07, 2024 8:1 2am Osteoporosis September 07, 2024 8:1 2am Overweight with body mass index (BMI) 25 .0-29.9 September 07, 2024 8:12am Chief Complaint Admit Date 6 M FU March 28, 2025 7: 27am Additional Source Comments INFORMATION SOURCE (unrecogn ized section and content) DATE CREATED AUTHOR 04/25/2019 [facility] DATE CREATED AUTHOR AUTHOR'S ORGANIZ ATION 05/08/2025 [facility] Goals (unrecognized section and content) Goals may be documented in a n alternate sectionGoals may be documented in an alternate sectionGoals may be documented in an alternate sectionGoals may be documented in an alternate sectionGoals may be documented in an alternate sectionGoals may be documented in an alternate section Care Teams (unrecognized sec tion and content) Team Status: Active Member Role Status Dates Dr. Ko Eden MD Family Provider Active Dr. Ko Eden MD Primary Care Provider Active Team Status: Inactive Member Role Status Dates Dr. Ko Eden MD Primary Care Provider, Refer ring Provider Active Bo Barton NP, REPULPING SUPERVISOR-C Attending Provider Active Team Status: Active Member Role Status Dates Dr. Ko Eden MD Primary Care Provider, Refer ring Provider Active Dr. Marco Henriquez MD Attending Provider, Other Provider Active Team Status: Inactive Member Role Status Dates Dr. Ko Eden MD Primary Care P lisa, Attending Provider, Referring Provider Active Team Status: Inactive Member Role Status Dates Dr. Ko Eden MD Primary Care Provider, Refer ring Provider Active Dr. Marco Henriquez MD Attending Provider Active Team Status: Inactive Member Role Status Dates Dr. Ko Eden MD Primary Care Provider Active Bo Barton NP, REPULPING SUPERVISOR-C Attending Provider, Referring Prov ider Active Team Status: Inactive Member Role Status Dates Dr. Ko Eden MD Primary Care Provider Active Start: September 07, 2024 End: September 07, 2024 Dr. Ko Eden MD Attending Provider Active Start: September 07, 2024 End: September 07, 2024 Dr. Ko Eden MD Referring Provider Active Start: September 07, 2024 End: September 07, 2024 Team Status: Active Member Role/Relationship Status Dates Dr. Ko Eden MD Primary care physician Activ e Team Status: Inactive Member Role/Relationship Status Dates JULIEN Desai Attending physician Active Start: March 28, 2025 End: March 28, 2025 Dr. Ko Eden MD Primary care physician Activ e Start: March 28, 2025 End: March 28, 2025 Dr. Ko Eden MD Referring Provider Active Start: March 28, 2025 End: March 28, 2025 FOR RECORDS PERTAINING TO PATIENTS WHO ARE [...] BE BASED ON THE PRIMARY CLINICAL RECORDS. [facility] [employer] provides no warranty or guarantee of the accuracy or completeness of information in this document.
== END | disposition home or self-care (01) ==
LOC: OPBI 07:38
PROVIDERS: PCP Internal Medicine; Referring Provider Internal Medicine; Visit Provider Internal Medicine
DX: Z12.31 Encounter for screening mammogram for malignant neoplasm of breast (principal)
CPT/HCPCS: 77063; 77067